=== PATIENT | male | born 1955 | race Caucasian/White ===

== ENCOUNTER → 2017-12-10 | Outpatient (CLI) | payer OTHER ==
[~2017-12-10] MED LIST: OPTIRAY 320 IV PRN
--- NOTE | 2017-12-10 20:15 | DIAGNOSTIC IMAGING REPORT ---
ADDENDUM No evidence for acute diverticulitis. Electronically signed by: Uriel Calle M.D. 12/11/2017 6:07 PM Dictated Date/Time: 12/11/2017 6:07 PM ORIGINAL REPORT ABDOMEN AND PELVIS CT WITH IV AND ORAL CONTRAST CT DOSE: 593.68 mGy.cm HISTORY: Generalized abdominal pain. Assess for diverticulitis. TECHNIQUE: Multiaxial CT images of the abdomen and pelvis were performed following the use of intravenous and oral contrast. A dose lowering technique was utilized adhering to the principles of ALARA. COMPARISON STUDY: None. FINDINGS: The lung bases are clear. No pneumoperitoneum. No pneumatosis. No fractures within the visualized osseous structures. There are poststernotomy changes. 2 cm diverticulum at the second portion of the duodenum. The liver, gallbladder, spleen, adrenal glands, pancreas, and kidneys are unremarkable. Normal bladder. No pelvic free fluid. No bowel wall thickening or obstruction. Normal appendix. No retroperitoneal lymphadenopathy. IMPRESSION: 1. No bowel wall thickening or obstruction. 2. Normal appendix. Electronically signed by: Uriel Calle M.D. 12/10/2017 8:14 PM Dictated Date/Time: 12/10/2017 8:06 PM
== END | disposition home or self-care (01) ==
LOC: C.CTS 17:27
PROVIDERS: ATTEND Family Medicine
DX: R10.9 Unspecified abdominal pain (principal)

== ENCOUNTER 2022-11-20 14:20 | Inpatient (IN) ==
--- NOTE | 2022-11-20 14:52 | Emergency Department Note ---
Impression & Plan CAP (community acquired pneumonia), Acute dehydration, Anemia, Headache ED Provider Note NAME: CECI MEDINA AGE: 67 SEX: M : 1955 ARRIVES VIA: Ambulance INFORMANT: Patient, ED PROVIDER(S): Manuel Rust MD CHIEF COMPLAINT: MEDICAL DECISION MAKING: Patient presents due to concern for shaking-like episode. Next IV was established blood work was obtained along with CT head chest x-ray and CT abdomen pelvis. Patient was ordered IV fluids as well as medications for headache. The patient's blood work did show leukocytosis with a white count of 16. The patient's hemoglobin slightly low at 13.8 with a normal platelet count. Kidney function is grossly unremarkable. TSH normal. Patient did have urinalysis com pleted which was negative. BioFire negative nasal MRSA swab negative and the patient did receive antibiotics as the patient's chest x-ray did show concern for pneumonia. 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 Believe that this is an incidental finding. CT of the head and is negative I did convey the findings to the patient given the patient's shaking episodes believe that this was rigors and less likely to be seizure as the patient had no past postictal period. The patient was admitted to medicine service by Dr. Gonzalez. Prior /Outside records reviewed: None Differential diagnosis: Infection, dehydration, metabolic abnormality, hypo/hyperglycemia, electrolyte disturbance, anemia, hypoxia, arrhythmia, ICH, seizure among others were considered Diagnostics, as interpreted by me: ECG: Normal sinus rhythm, rate of 94, normal intervals normal axis no ST elevations or T WI. Cardiac monitoring: An order was placed for continuous cardiac monitoring. The monitor shows a rate of 88 with sinus rhythm. Patient was placed on pulse oximetry Medical decision rules: Curb 65 Imaging studies: See below Chest x-ray noted for possible pneumonia HPI: Patient presents due to concern for shaking-like episode that occurred around 130 today. Lasted approximate 30 minutes in duration. The patient denies any postictal. Tongue biting or incontinence. No prior history of seizure. The patient does admit to have a headache and feeling very fatigued. The patient has had a nonproductive cough. Former smoker last smoking 6 months ago. Patient also complains of some abdominal pain and dysuria. No recent falls or trauma. The patient does not take anything for symptoms today. The patient did admit to feeling rundown prior to this episode today. Patient denies any numbness tingling or focal weakness. No neck pain. The patient's headache is global and nonradiating. Patient does not take any blood thinning medications. PAST MEDICAL HISTORY: See Below PAST SURGICAL HISTORY: See Below SOCIAL HISTORY: See Below HOME MEDICATIONS: See Below ALLERGIES: See Below VITALS: See Below PHYSICAL EXAMINATION: GENERAL: NAD, wearing a mask, non-toxic. Wearing a baseball cap and glasses. EYE EXAM: Normal conjunctiva. PERRL, no anisocoria and EOM's grossly intact w/o pain. NECK: Supple, no nuchal rigidity, no adenopathy, non-tender. No signs of meningismus. FROM of the neck with good chin to chest and neck extension. No stridor. LUNGS: Clear to auscultation. Normal chest wall mechanics. HEART: NSR, no MRG. ABDOMEN: Abdomen soft, non-tender, no masses, no rebound or guarding. BACK: No CVA TTP. SKIN: No rashes and no bruising. UPPER EXTREMITIES: Upper extremities are grossly normal. LOWER EXTREMITIES: Grossly normal, no edema. NEURO EXAM: A&O x3, cranial nerves II-XII grossly intact, normal speech, moves all 4 extremities. Good [id number], no drift and no sensory deficits Past Med/Surg History Medical History NHL (non-Hodgkin's lymphoma) (~1994) surgery + chemotherapy. remission currently Surgical History History of colonoscopy History of esophagogastroduodenoscopy (EGD) Hx of surgical procedure tumor removal from chest "open surgery" Family History Other No pertinent family history Social History Smoking Status: Former smoker Cigarettes Per Day: 12; Second Hand Exposure: No; Do You Dip or Chew Tobacco: No; Tobacco Cessation Education Requested by Patient: No Hx Alcohol Use: Yes Alcohol type: beer Hx Substance Use: No Preferred Language: Divehi Communication Ability: Effective Podiatry Doctor Required: No Beliefs That Will Affect Care: None Current Living Situation: Spouse current occupational status: employed Other Information That Helps Us Care for You: No Feels Safe at Home: Yes Safety Concerns: Feels Safe At This Time Assistive Devices: None Allergies Allergies Allergy/AdvReac Type Severity Reaction Status Date / Time No Known Allergies Allergy Unknown Verified 11/20/22 16:24 Home Meds Home Medications Medication Instructions Recorded Confirmed ascorbic acid (vitamin C) 1,000 mg 1,000 mg PO QAM 10/31/18 11/20/22 tablet (Vitamin C) multivitamin 1 tab PO QAM 10/31/18 11/20/22 pantoprazole 40 mg tablet,delayed 40 mg PO DAILY 08/24/21 11/20/22 release Results & Data (ED) Vital Signs Vital Signs - 24 hr 11/20/22 14:30 11/20/22 15:04 11/20/22 15:12 Temperature 37.1 C Temperature Source Oral Pulse Rate 95 H 93 H Pulse Rate [Apical] Pulse Rate from SpO2 Sensor Respiratory Rate 18 Respiratory Depth Normal Blood Pressure 144/77 H Blood Pressure [Left Arm] Blood Pressure Mean 99 Blood Pressure Mean [Left Arm] Blood Pressure Position Lying Blood Pressure Position [Left Arm] Pulse Oximetry 96 94 Oxygen Delivery Method Room Air Room Air Sepsis Recent Fever Within 48 Hours No Sepsis New/Unexplained Change in Mental Status No Sepsis Action Taken by Nursing No Action Required 11/20/22 16:08 11/20/22 18:39 11/20/22 14:56 Temperature Temperature Source Pulse Rate 75 94 H Pulse Rate [Apical] 79 Pulse Rate from SpO2 Sensor Respiratory Rate 18 12 Respiratory Depth Blood Pressure Blood Pressure [Left Arm] 101/63 Blood Pressure Mean Blood Pressure Mean [Left Arm] 75 Blood Pressure Position Blood Pressure Position [Left Arm] Sitting Pulse Oximetry 93 Oxygen Delivery Method Room Air Sepsis Recent Fever Within 48 Hours Sepsis New/Unexplained Change in Mental Status Sepsis Action Taken by Nursing 11/20/22 15:00 11/20/22 15:00 11/20/22 15:30 Temperature Temperature Source Pulse Rate 92 H Pulse Rate [Apical] Pulse Rate from SpO2 Sensor Respiratory Rate 19 Respiratory Depth Blood Pressure 122/63 145/78 H Blood Pressure [Left Arm] Blood Pressure Mean 82 100 Blood Pressure Mean [Left Arm] Blood Pressure Position Blood Pressure Position [Left Arm] Pulse Oximetry Oxygen Delivery Method Sepsis Recent Fever Within 48 Hours Sepsis New/Unexplained Change in Mental Status Sepsis Action Taken by Nursing 11/20/22 15:30 11/20/22 16:00 11/20/22 16:01 Temperature Temperature Source Pulse Rate 94 H 82 Pulse Rate [Apical] Pulse Rate from SpO2 Sensor 94 H 78 Respiratory Rate 20 19 Respiratory Depth Blood Pressure 101/63 Blood Pressure [Left Arm] Blood Pressure Mean 75 Blood Pressure Mean [Left Arm] Blood Pressure Position Blood Pressure Position [Left Arm] Pulse Oximetry 97 89 L Oxygen Delivery Method Sepsis Recent Fever Within 48 Hours Sepsis New/Unexplained Change in Mental Status Sepsis Action Taken by Nursing 11/20/22 16:01 11/20/22 16:34 11/20/22 16:56 Temperature Temperature Source Pulse Rate 80 77 Pulse Rate [Apical] Pulse Rate from SpO2 Sensor 81 77 Respiratory Rate 17 14 Respiratory Depth Blood Pressure 117/59 L Blood Pressure [Left Arm] Blood Pressure Mean 78 Blood Pressure Mean [Left Arm] Blood Pressure Position Blood Pressure Position [Left Arm] Pulse Oximetry 94 95 Oxygen Delivery Method Sepsis Recent Fever Within 48 Hours Sepsis New/Unexplained Change in Mental Status Sepsis Action Taken by Nursing 11/20/22 16:56 11/20/22 17:00 11/20/22 17:00 Temperature Temperature Source Pulse Rate 77 76 Pulse Rate [Apical] Pulse Rate from SpO2 Sensor 79 77 Respiratory Rate 18 15 Respiratory Depth Blood Pressure 120/65 Blood Pressure [Left Arm] Blood Pressure Mean 83 Blood Pressure Mean [Left Arm] Blood Pressure Position Blood Pressure Position [Left Arm] Pulse Oximetry 94 95 Oxygen Delivery Method Sepsis Recent Fever Within 48 Hours Sepsis New/Unexplained Change in Mental Status Sepsis Action Taken by Nursing 11/20/22 17:30 11/20/22 17:30 11/20/22 18:00 Temperature Temperature Source Pulse Rate 72 76 Pulse Rate [Apical] Pulse Rate from SpO2 Sensor 72 77 Respiratory Rate 14 18 Respiratory Depth Blood Pressure 128/71 Blood Pressure [Left Arm] Blood Pressure Mean 90 Blood Pressure Mean [Left Arm] Blood Pressure Position Blood Pressure Position [Left Arm] Pulse Oximetry 97 96 Oxygen Delivery Method Room Air Room Air Sepsis Recent Fever Within 48 Hours Sepsis New/Unexplained Change in Mental Status Sepsis Action Taken by Nursing 11/20/22 18:30 Temperature Temperature Source Pulse Rate 72 Pulse Rate [Apical] Pulse Rate from SpO2 Sensor 71 Respiratory Rate 18 Respiratory Depth Blood Pressure Blood Pressure [Left Arm] Blood Pressure Mean Blood Pressure Mean [Left Arm] Blood Pressure Position Blood Pressure Position [Left Arm] Pulse Oximetry 97 Oxygen Delivery Method Room Air Sepsis Recent Fever Within 48 Hours Sepsis New/Unexplained Change in Mental Status Sepsis Action Taken by Assisted Medications Current Medication List: was personally reviewed by me Laboratory Data Attestation: I reviewed the patient's lab results. 11/20/22 15:19 11/20/22 15:19 Lab Results 11/20/22 11/20/22 11/20/22 Range/Units 15:19 15:19 15:19 WBC 16.88 H (4.8-10.8) K/ul RBC 4.46 L (4.70-6.10) M/uL Hgb 13.8 L (14.0-18.0) g/dl Hct 40.2 L (42.0-52.0) % MCV 90.1 (80.0-100.0) fL MCH 30.9 (25.0-34.0) pg MCHC 34.3 (32.0-36.0) g/dL RDW Std Deviation 41.3 (36.4-46.3) fL RDW Coeff of Osiel 12.5 (11.5-14.5) % Plt Count 256 (130-400) K/uL MPV 11.0 (9.4-12.4) fL Immature Gran % (Auto) 0.7 % Neut % (Auto) 74.3 % Lymph % (Auto) 13.7 % Ogle % (Auto) 10.1 % Eos % (Auto) 0.8 % Baso % (Auto) 0.4 % Neut # (Auto) 12.57 H (1.40-6.50) K/uL Lymph # (Auto) 2.31 (1.2-3.4) K/uL Ogle # (Auto) 1.70 H (0.11-0.59) K/uL Eos # (Auto) 0.13 (0-0.50) K/uL Baso # (Auto) 0.06 (0-0.2) K/uL Immature Gran # (Auto) 0.11 (0.01-0.20) K/uL Sodium 137 (136-145) mmol/L Potassium 4.2 (3.5-5.1) mmol/L Chloride 103 (98-107) mmol/L Carbon Dioxide 29 (21-32) mmol/L Anion Gap 5 (3-11) BUN 15 (6-23) mg/dl Creatinine 1.02 (0.6-1.4) mg/dl Est Cr Clr Drug Dosing Not Reportable Est GFR ( Amer) 88.4 ml/min Est GFR (Non-Af Amer) 76.2 ml/min BUN/Creatinine Ratio 14.7 (10-20) Glucose 107 H (70-99(Fasting)) mg/dl Calcium 8.5 L (8.6-10.3) mg/dl Magnesium 1.7 (1.7-2.4) mg/dl Total Bilirubin 0.6 (0.2-1.0) mg/dl AST 21 (13-39) U/L ALT 47 (7-52) U/L Alkaline Phosphatase 63 (34-104) U/L Total Protein 6.5 (6.0-8.3) gm/dl Albumin 3.5 (3.4-5.0) gm/dl Globulin 3.0 (2.5-4.0) gm/dl Albumin/Globulin Ratio 1.2 (0.9-2) TSH 2.243 (0.300-4.500) uIu/ml Urine Color Urine Appearance (Clear) Urine pH (4.5-7.5) Ur Specific Brent (1.000-1.030) Urine Protein (Negative) Urine Glucose (UA) (Negative) Urine Ketones (Negative) Urine Blood (Negative) Urine Nitrite (Negative) Urine Bilirubin (Negative) Urine Urobilinogen (Negative) Ur Leukocyte Esterase (Negative) Nasal Screen MRSA (PCR) (Negative) Adenovirus (PCR) (NotDetected) B. pertussis DNA (PCR) (NotDetected) B.parapertussis DNA PCR (NotDetected) C. pneumoniae DNA (PCR) (NotDetected) Coronavirus OC43 (PCR) (NotDetected) Coronavirus HKU1 (PCR) (NotDetected) Coronavirus 229E (PCR) (NotDetected) SARS-CoV-2 (PCR) (NotDetected) Coronavirus NL63 (PCR) (NotDetected) Human Metapneumovir PCR (NotDetected) Influenza Type A (PCR) (NotDetected) Influenza Type B (PCR) (NotDetected) M. pneumoniae (PCR) (NotDetected) Parainfluenza 1 (PCR) (NotDetected) Parainfluenza 2 (PCR) (NotDetected) Parainfluenza 3 (PCR) (NotDetected) Parainfluenza 4 (PCR) (NotDetected) RSV (PCR) (NotDetected) Entero/Rhino (PCR) (NotDetected) 11/20/22 11/20/22 11/20/22 Range/Units 15:34 18:02 18:02 WBC (4.8-10.8) K/ul RBC (4.70-6.10) M/uL Hgb (14.0-18.0) g/dl Hct (42.0-52.0) % MCV (80.0-100.0) fL MCH (25.0-34.0) pg MCHC (32.0-36.0) g/dL RDW Std Deviation (36.4-46.3) fL RDW Coeff of Osiel (11.5-14.5) % Plt Count (130-400) K/uL MPV (9.4-12.4) fL Immature Gran % (Auto) % Neut % (Auto) % Lymph % (Auto) % Ogle % (Auto) % Eos % (Auto) % Baso % (Auto) % Neut # (Auto) (1.40-6.50) K/uL Lymph # (Auto) (1.2-3.4) K/uL Ogle # (Auto) (0.11-0.59) K/uL Eos # (Auto) (0-0.50) K/uL Baso # (Auto) (0-0.2) K/uL Immature Gran # (Auto) (0.01-0.20) K/uL Sodium (136-145) mmol/L Potassium (3.5-5.1) mmol/L Chloride (98-107) mmol/L Carbon Dioxide (21-32) mmol/L Anion Gap (3-11) BUN (6-23) mg/dl Creatinine (0.6-1.4) mg/dl Est Cr Clr Drug Dosing Est GFR ( Amer) ml/min Est GFR (Non-Af Amer) ml/min BUN/Creatinine Ratio (10-20) Glucose (70-99(Fasting)) mg/dl Calcium (8.6-10.3) mg/dl Magnesium (1.7-2.4) mg/dl Total Bilirubin (0.2-1.0) mg/dl AST (13-39) U/L ALT (7-52) U/L Alkaline Phosphatase (34-104) U/L Total Protein (6.0-8.3) gm/dl Albumin (3.4-5.0) gm/dl Globulin (2.5-4.0) gm/dl Albumin/Globulin Ratio (0.9-2) TSH (0.300-4.500) uIu/ml Urine Color Yellow Urine Appearance Clear (Clear) Urine pH 6.5 (4.5-7.5) Ur Specific Brent 1.011 (1.000-1.030) Urine Protein Negative (Negative) Urine Glucose (UA) Negative (Negative) Urine Ketones Negative (Negative) Urine Blood Negative (Negative) Urine Nitrite Negative (Negative) Urine Bilirubin Negative (Negative) Urine Urobilinogen Negative (Negative) Ur Leukocyte Esterase Negative (Negative) Nasal Screen MRSA (PCR) Negative (Negative) Adenovirus (PCR) Not Detected (NotDetected) B. pertussis DNA (PCR) Not Detected (NotDetected) B.parapertussis DNA PCR Not Detected (NotDetected) C. pneumoniae DNA (PCR) Not Detected (NotDetected) Coronavirus OC43 (PCR) Not Detected (NotDetected) Coronavirus HKU1 (PCR) Not Detected (NotDetected) Coronavirus 229E (PCR) Not Detected (NotDetected) SARS-CoV-2 (PCR) Not Detected (NotDetected) Coronavirus NL63 (PCR) Not Detected (NotDetected) Human Metapneumovir PCR Not Detected (NotDetected) Influenza Type A (PCR) Not Detected (NotDetected) Influenza Type B (PCR) Not Detected (NotDetected) M. pneumoniae (PCR) Not Detected (NotDetected) Parainfluenza 1 (PCR) Not Detected (NotDetected) Parainfluenza 2 (PCR) Not Detected (NotDetected) Parainfluenza 3 (PCR) Not Detected (NotDetected) Parainfluenza 4 (PCR) Not Detected (NotDetected) RSV (PCR) Not Detected (NotDetected) Entero/Rhino (PCR) Not Detected (NotDetected) Administered Medications Acetaminophen (Acetaminophen 500 Mg Tab) 1,000 mg PO Q8H KIERRA Stop: 12/21/22 08:14 Last Admin: 11/21/22 08:49 Dose: 1,000 mg Documented By: TAWANA Azithromycin 250 mg/ Dextrose 252.5 mls @ 125 mls/hr IV DAILY KIERRA Stop: 11/28/22 08:59 Last Infusion: 11/21/22 10:12 Dose: 0 mls/hr Documented By: Admin: 11/21/22 07:53 Dose: 125 mls/hr Documented By: TAWANA Pantoprazole Sodium (Pantoprazole 40 Mg Tab) 40 mg PO DAILY KIERRA Stop: 12/21/22 08:59 Last Admin: 11/21/22 07:53 Dose: 40 mg Documented By: TAWANA Discontinued Medications Acetaminophen (Acetaminophen 500 Mg Tab) 1,000 mg PO NOW STA Stop: 11/20/22 15:01 Last Admin: 11/20/22 15:28 Dose: 1,000 mg Documented By: JOI Acetaminophen (Acetaminophen 325 Mg Tab) 650 mg PO Q4H PRN PRN Reason: Pain or Fever Stop: 12/20/22 20:44 Last Admin: 11/20/22 23:19 Dose: 650 mg Documented By: ELIAS Azithromycin (Azithromycin 250 Mg Tab) 500 mg PO NOW ONE Stop: 11/20/22 17:40 Last Admin: 11/20/22 17:56 Dose: 500 mg Documented By: JOI Sodium Chloride (Nss 1000ml) 1,000 mls @ 999 mls/hr IV .Q1H1M KIERRA Stop: 11/20/22 16:00 Last Infusion: 11/20/22 16:52 Dose: 0 mls/hr Documented By: Admin: 11/20/22 15:27 Dose: 999 mls/hr Documented By: JOI Magnesium Sulfate/Dextrose (Magnesium Sulfate / D5w) 1 gm in 100 mls @ 100 mls/hr IV NOW ONE Stop: 11/20/22 15:59 Last Infusion: 11/20/22 16:52 Dose: 0 mls/hr Documented By: Admin: 11/20/22 15:27 Dose: 100 mls/hr Documented By: JOI Ceftriaxone Sodium (Rocephin) 2,000 mg in 70 mls @ 140 mls/hr IV NOW STA Stop: 11/20/22 18:08 Last Infusion: 11/20/22 18:41 Dose: 0 mls/hr Documented By: Admin: 11/20/22 17:56 Dose: 140 mls/hr Documented By: JOI Sodium Chloride (Nss 1000ml) 500 mls @ 999 mls/hr IV .Q31M ONE Stop: 11/20/22 18:09 Last Infusion: 11/20/22 18:43 Dose: 0 mls/hr Documented By: Admin: 11/20/22 17:57 Dose: 999 mls/hr Documented By: JOI Ioversol (Optiray 350 100ml) 87 ml IV ONCE ONE Stop: 11/20/22 16:24 Last Admin: 11/20/22 16:24 Dose: 87 ml Documented By: JO Miscellaneous (Patient's Height &/Or Weight Needed) 1 each N/A Q30M KIERRA Stop: 12/20/22 20:59 Last Admin: 11/20/22 23:06 Dose: Not Given Documented By: Admin: 11/20/22 20:45 Dose: 1 each Documented By: ELIAS Ondansetron HCl (Ondansetron Inj 2 Mg/Ml 2 Ml Vial) 4 mg IV NOW STA Stop: 11/20/22 15:01 Last Admin: 11/20/22 15:28 Dose: 4 mg Documented By: JOI Imaging Data Radiologist's Impression: Chest X-Ray 11/20/22 15:00 SINGLE VIEW CHEST CLINICAL HISTORY: Generalized weakness. FINDINGS: An AP, portable, upright chest radiograph is compared to study dated 11/02/2018. Correlation is made with chest CT dated 05/08/2022. The examination is degraded by portable technique and apical lordotic positioning. The patient is status post midline sternotomy. The heart is top normal for projection. Emphysema and chronic interstitial thickening is similar to previous. There is bibasilar scarring/atelectasis. Right paramediastinal fibrosis similar to previous. Patchy airspace opacities in the right upper lobe are new from previous. No large pleural effusion or pneumothorax is identified. The skeletal structures are osteopenic. The bony thorax is grossly intact. IMPRESSION: 1. There are mild patchy airspace opacities in the right upper lobe which are new from previous. Correlate clinically for evidence of pneumonia/aspiration pneumonitis. Radiographic follow-up to resolution is recommended. 2. Emphysema and chronic parenchymal changes as above. ACT 112: Negative or not required by law. Electronically signed by: Ck Maurice M.D. 11/20/2022 3:11 PM Abdomen/Pelvis CT 11/20/22 15:[address] WITH IV CONTRAST CT DOSE: 995.34 mGy.cm HISTORY: Acute generalized abdominal pain ab pain TECHNIQUE: Multiaxial CT images of the abdomen and pelvis were performed following the IV administration of 87 cc of Optiray, A dose lowering technique was utilized adhering to the principles of ALARA. COMPARISON STUDY: 10/31/2018 FINDINGS: Mild patchy left basilar consolidation. No pneumatosis or pneumoperitoneum. The spleen, pancreas, gallbladder and adrenal glands are unremarkable. Hepatic steatosis. Patency of the hepatic and portal veins. A nonspecific bilateral perinephric stranding. No urolith or hany hydronephrosis. The prostate is mildly enlarged. Mildly distended urinary bladder. Atherosclerosis of the aorta. Fusiform dilation of the infra renal abdominal aorta, 3.0 x 2.5 cm, previously 2.5 x 2.2 cm. No lymphadenopathy. There is no bowel obstruction or bowel wall thickening. Normal appendix. No asci willa or mesenteric inflammation. Unremarkable soft tissues. No acute fracture. IMPRESSION: 1. Mild left lower lobe pneumonia. 2. No acute intra-abdominal or intrapelvic abnormality. 3. Hepatic steatosis. 4. Mild fusiform aneurysmal dilation of the infra infrarenal segment of the abdominal aorta, 3 cm. 5. Additional findings as above. ACT 112: Negative or not required by law. The above report was generated using voice recognition software. It may contain grammatical, syntax or spelling errors. Electronically signed by: Rene Woods M.D. 11/20/2022 4:[address] 11/20/22 15:01 CT head/brain wo con CLINICAL HISTORY: 67 years-old Male with Headache. Acute headache TECHNIQUE: Multiple axial CT images of the head were obtained without contrast. A dose lowering technique was utilized adhering to the principles of ALARA. CT DOSE: 537.48 mGy.cm COMPARISON: None. FINDINGS: No acute intracranial hemorrhage, midline shift, intracranial mass, hydrocephalus, territorial ischemia or abnormal extra-axial collection. Mild involutional changes. The calvarium is intact. The paranasal sinuses, mastoid air cells, and middle ear cavities are clear. IMPRESSION: No acute intracranial abnormality. ACT 112: Negative or not required by law. The above report was generated using voice recognition software. It may contain grammatical, syntax or spelling errors. Electronically signed by: Rene Woods M.D. 11/20/2022 4:26 PM Discharge Plan Visit Data Chief Complaint: Seizure ED Provider: Manuel Rust Discharge Problem: CAP (community acquired pneumonia), Acute dehydration, Anemia, Headache Patient Disposition: Admitted As Inpatient Discharge Instructions Interventions: ED Discharge Assessment Last Done: 11/20/22 20:35
[2022-11-20] MEDS ORDERED: SODIUM CHLORIDE 0.9% 1000ML 1,000 ML IV SCH (15:00)
[2022-11-20] MEDS ORDERED: ONDANSETRON INJ 2 MG/ML 2 ML VIAL IV STA (15:00)
[2022-11-20] MEDS ORDERED: ACETAMINOPHEN 500 MG TAB PO STA (15:00)
[2022-11-20] MEDS ORDERED: MAGNESIUM SULFATE / D5W 1 GM/100 ML BAG IV ONE (15:00)
--- NOTE | 2022-11-20 15:12 | XRay Report ---
SINGLE VIEW CHEST CLINICAL HISTORY: Generalized weakness. FINDINGS: An AP, portable, upright chest radiograph is compared to study dated 11/02/2018. Correlation is made with chest CT dated 05/08/2022. The examination is degraded by portable technique and apical lordotic positioning. The patient is status post midline sternotomy. The heart is top normal for proj ection. Emphysema and chronic interstitial thickening is similar to previous. There is bibasilar scar ring/atelectasis. Right paramediastinal fibrosis similar to previous. Patchy airspace opacities in th e right upper lobe are new from previous. No large pleural effusion or pneumothorax is identified. Th e skeletal structures are osteopenic. The bony thorax is grossly intact. IMPRESSION: 1. There are mild patchy airspace opacities in the right upper lobe which are new from previous. Alexis elate clinically for evidence of pneumonia/aspiration pneumonitis. Radiographic follow-up to resoluti on is recommended. 2. Emphysema and chronic parenchymal changes as above. ACT 112: Negative or not required by law. Electronically signed by: Ck Maurice M.D. 11/20/2022 3:11 PM
[2022-11-20 15:32] LABS: Basophils # (auto) 0.06 K/uL (0-0.2); Basophils % (auto) 0.4 %; Eosinophils # (auto) 0.13 K/uL (0-0.50); Eosinophils % (auto) 0.8 %; Hematocrit (blood only) 40.2 % (42.0-52.0); Hemoglobin 13.8 g/dl (14.0-18.0); Immature Granulocytes # (auto) 0.11 K/uL (0.01-0.20); Immature Granulocytes % (auto) 0.7 %; Lymphocytes # (auto) 2.31 K/uL (1.2-3.4); Lymphocytes % (auto) 13.7 %; Mean Corpuscular Hemoglobin 30.9 pg (25.0-34.0); Mean Corpuscular Hgb Conc 34.3 g/dL (32.0-36.0); Mean Corpuscular Volume 90.1 fL (80.0-100.0); Monocytes % (auto) 10.1 %; Neutrophils # (auto) 12.57 K/uL (1.40-6.50); Neutrophils % (auto) 74.3 %; Platelet Count 256 K/uL (130-400); RDW Coefficient of Variation 12.5 % (11.5-14.5); RDW Standard Deviation 41.3 fL (36.4-46.3); Red Blood Count 4.46 M/uL (4.70-6.10); White Blood Count 16.88 K/ul (4.8-10.8)
[2022-11-20 15:47] LABS: Albumin Level 3.5 gm/dl (3.4-5.0); Anion Gap 5 (3-11); Bilirubin,Total 0.6 mg/dl (0.2-1.0); Calcium 8.5 mg/dl (8.6-10.3); Carbon Dioxide 29 mmol/L (21-32); Chloride 103 mmol/L (98-107); Magnesium 1.7 mg/dl (1.7-2.4); Potassium 4.2 mmol/L (3.5-5.1); Sodium 137 mmol/L (136-145)
[2022-11-20 15:52] LABS: Alanine Aminotransferase 47 U/L (7-52); Albumin Globulin Ratio 1.2 (0.9-2); Alkaline Phosphatase 63 U/L (34-104); Aspartate Aminotransferase 21 U/L (13-39); BUN Creatinine Ratio 14.7 (10-20); Blood Urea Nitrogen 15 mg/dl (6-23); Est GFR (African American) 88.4 ml/min; Est GFR (Non-African American) 76.2 ml/min; Glucose 107 mg/dl (70-99(Fasting)); Total Protein 6.5 gm/dl (6.0-8.3)
[2022-11-20 16:06] LABS: Appearance Urine Clear (Clear); Bilirubin Urine Negative (Negative); Blood Urine Negative (Negative); Color Urine Yellow; Glucose Urine UA Negative (Negative); Ketones Urine Negative (Negative); Leukocyte Esterase Urine Negative (Negative); Nitrite Urine Negative (Negative); Protein Urine Negative (Negative); Specific Gravity Urine 1.011 (1.000-1.030); Urobilinogen Urine Negative (Negative); pH Urine 6.5 (4.5-7.5)
--- NOTE | 2022-11-20 16:09 | Electrocardiogram Report ---
Test Reason : Blood Pressure : / mmHG Vent. Rate : 094 BPM Atrial Rate : 094 BPM P-R Int : 128 ms QRS Dur : 096 ms QT Int : 358 ms P-R-T Axes : 014 -07 037 degrees QTc Int : 447 ms Normal sinus rhythm Normal ECG When compared with ECG of 29-AUG-2021 07:50, QRS axis Shifted left Otherwise no significant change Confirmed by Janak Liu ([id number]) on 11/20/2022 4:08:28 PM Referred By: Confirmed By:Janak Liu
[2022-11-20] MEDS ORDERED: OPTIRAY 350 100ml IV ONE (16:23)
--- NOTE | 2022-11-20 16:28 | CT Scan Report ---
CT head/brain wo con CLINICAL HISTORY: 67 years-old Male with Headache. Acute headache TECHNIQUE: Multiple axial CT images of the head were obtained without contrast. A dose lowering tech nique was utilized adhering to the principles of ALARA. CT DOSE: 537.48 mGy.cm COMPARISON: None. FINDINGS: No acute intracranial hemorrhage, midline shift, intracranial mass, hydrocephalus, territorial ischem ia or abnormal extra-axial collection. Mild involutional changes. The calvarium is intact. The paranasal sinuses, mastoid air cells, and middle ear cavities are clear . IMPRESSION: No acute intracranial abnormality. ACT 112: Negative or not required by law. The above report was generated using voice recognition software. It may contain grammatical, syntax o r spelling errors. Electronically signed by: Rene Woods M.D. 11/20/2022 4:26 PM
--- NOTE | 2022-11-20 16:39 | CT Scan Report ---
ABDOMEN AND PELVIS CT WITH IV CONTRAST CT DOSE: 995.34 mGy.cm HISTORY: Acute generalized abdominal pain ab pain TECHNIQUE: Multiaxial CT images of the abdomen and pelvis were performed following the IV administrat ion of 87 cc of Optiray, A dose lowering technique was utilized adhering to the principles of ALARA. COMPARISON STUDY: 10/31/2018 FINDINGS: Mild patchy left basilar consolidation. No pneumatosis or pneumoperitoneum. The spleen, robles creas, gallbladder and adrenal glands are unremarkable. Hepatic steatosis. Patency of the hepatic and portal veins. A nonspecific bilateral perinephric stranding. No urolith or hany hydronephrosis. The prostate is mildly enlarged. Mildly distended urinary bladder. Atherosclerosis of the aorta. Fusifor m dilation of the infra renal abdominal aorta, 3.0 x 2.5 cm, previously 2.5 x 2.2 cm. No lymphadenopa thy. There is no bowel obstruction or bowel wall thickening. Normal appendix. No ascites or mesenteric inf lammation. Unremarkable soft tissues. No acute fracture. IMPRESSION: 1. Mild left lower lobe pneumonia. 2. No acute intra-abdominal or intrapelvic abnormality. 3. Hepatic steatosis. 4. Mild fusiform aneurysmal dilation of the infra infrarenal segment of the abdominal aorta, 3 cm. 5. Additional findings as above. ACT 112: Negative or not required by law. The above report was generated using voice recognition software. It may contain grammatical, syntax o r spelling errors. Electronically signed by: Rene Woods M.D. 11/20/2022 4:37 PM
[2022-11-20] MEDS ORDERED: SODIUM CHLORIDE 0.9% 1000ML 500 ML IV ONE (17:39)
[2022-11-20] MEDS ORDERED: AZITHROMYCIN 250 MG TAB PO ONE (17:39)
[2022-11-20] MEDS ORDERED: cefTRIAXone SODIUM 2,000 MG/70 ML BAG IV STA (17:39)
--- NOTE | 2022-11-20 18:07 | History & Physical Report ---
Date of Service November 20, 2022 Assessment & Plan (1) CAP (community acquired pneumonia): Plan: Community-acquired pneumonia - CTA/P: Mild left lower lobe pneumonia, no acute intra-abdominal or intrapelvic abnormality. Mild fusiform aneurysmal dilation of infrarenal segment of a abdominal aorta 3 cm CXR: Emphysema, mild patchy airspace opacities in right upper lobe new from prior Leukocytosis 16.88 with left shift Hemoglobin 13.8, MCV 90 Sodium, potassium normal Renal function with creatinine less than 1.2 at baseline, admitting creatinine 1.02 Magnesium 1.7, oral x1 given TSH is normal Continue Rocephin/azithromycin Patient has an episode prior to admission of what sounds like rigors where he had shaking chills with hot and cold sweats which lasted for around half an hour. Blood cultures pending. Patient was second episode of a unresponsive staring spell while standing, although this was not associated with tonic-clonic jerks. Suspect patient may have had a vasovagal episode after using the bathroom in the setting of volume depletion with a community-acquired pneumonia. No confusion at bedside assessment, no focal weakness. CThead is normal We will follow on seizure precautions but defer CT seizure protocol/EEG on admission for suspected vasovagal event. Ativan on-call in case he experiences recurrent seizure, if when the seizure does occur then will load Keppra 2g at that time, follow with 500mg BID after and order MRI seizure protocol and obtain a follow-up EEG. Infrarenal aortic aneurysm 3 cm, recommend continued serial imaging as outpatient Patient is a former smoker, no active tobacco use Fluoroquinolone use not recommended, Lumbar radiculopathy, right lower extremity weakness No bowel or bladder incontinence Does have radiating pain from his back down his leg and into his foot and some sensory numbness and tingling. Does have a history of sciatica and SI dysfunction which did not improve following joint injection Was pending a lumbar MRI as outpatient next week, patient endorses that he has had right leg weakness and strength loss in addition to pain limitation 5/5 strength to hip flexion and ankle dorsiflexion/plantarflexion in bed, qualitatively fatigues more easily than on the left No signs requiring emergent MRI. Can obtain routine MRI while inpatient to facilitate, if patient develops weakness on exam, abnormal reflexes, or bowel/bladder retention or incontinence would obtain stat at that time DVT prophylaxis: Lovenox Diet: Heart healthy Disposition: Medical telemetry CODE STATUS: Full code (2) Lumbar back pain with radiculopathy affecting right lower extremity: (3) NHL (non-Hodgkin's lymphoma): History of Present Illness Primary Care Provider: Maggie Tipton DO Prashanth is a 67-year-old male with a past medical history of lumbar radiculopathy with right lower extremity radiculopathy who presents with Prashanth is seen at the bedside with his . Had been very fatigued for 3-4 days. Had a bad cough while at work. 3:30 today started shaking so violently he almost passed out and had freezing chills. Walked up to his wifes work and then like he was burning up with a fever. Went to go to the bathroom today and passed out. Cough is productive for yelloish sputum Not sure if he had a temperature Has felt more shrot of breath x3-4 days No nausea, vomiting, or diarrhea. no constipation Former 30 pack her history. Early COPD on low dose CT screening. No inhaler use. Has had intermittent wheezing which has not occured since he quit smoking Hx of Si joint dysfunction on Right side, s/p injection which did not help and with intermittent sciatia. No bowel/bladder x. Pending outpatient lumbar MRI. +dysuria, no retention. R hip flexion. Qualitative different feel in R foot to soft touch Episode of unresponsiveness, staring, did no respond. Did nto fall or shake but was not responsive and does not remember the episode. Sternal wires s/p nonhodgkins lymphoma remova. Was performed at [facility] November 1995, no recurrent cancer after chemo and radiation. Medical History: Reviewed Medications: Reviewed Surgical History: Reviewed Family history: Reviewed Allergies: Reviewed Social History: Former smoker, quit smoking 6-8 months ago. Former 1ppd use x30 year use. Rare social etoh. No rec drug use Code Status: Full Code Allergies Allergy/AdvReac Type Severity Reaction Status Date / Time No Known Allergies Allergy Unknown Verified 11/20/22 16:24 Home Medications Medication Instructions Recorded Confirmed Type ascorbic acid (vitamin C) 1,000 mg 1,000 mg PO QAM 10/31/18 11/20/22 History tablet (Vitamin C) multivitamin 1 tab PO QAM 10/31/18 11/20/22 History pantoprazole 40 mg tablet,delayed 40 mg PO DAILY 08/24/21 11/20/22 History release Past Med/Surg History Medical History (Updated 11/20/22 @ 18:26 by Jim Gonzalez MD) NHL (non-Hodgkin's lymphoma) (~1994) surgery + chemotherapy. remission currently Surgical History History of colonoscopy History of esophagogastroduodenoscopy (EGD) Hx of surgical procedure tumor removal from chest "open surgery" Family History Other No pertinent family history Social History Smoking Status: Former smoker Cigarettes Per Day: 12; Second Hand Exposure: Yes; Hx Alcohol Use: No Hx Substance Use: No Preferred Language: Bhutanese Communication Ability: Effective Cue Selector Required: No Beliefs That Will Affect Care: None Current Living Situation: Spouse current occupational status: employed Feels Safe at Home: Yes Assistive Devices: Brace/Splint/Immobilizer Review of Systems Review of Systems: All systems reviewed & are unremarkable except as noted in HPI & below Physical Exam Physical Exam: General: A&Ox3. NAD. Cooperative. HEENT: Atraumatic, normocephalic. PERLAA. EOM/Vision intact Pulm: Diminished, crackles in the bases. -wheezes, -rales, -rhonchi. Symmetrical chest rise. No increased work of breathing. No respiratory distress. Cardiac: RRR, -mrg. Radial pulses intact and symmetrical. Abdominal: Nontender, nondistended, soft. BS present. CRANIAL NERVES: II: Pupils equal and reactive, no relative afferent pupillary defect, no VF cuts III, IV, : EOM intact, no gaze preference or deviation, no nystagmus. V: normal sensation in V1, V2, and V3 segments bilaterally VII: no asymmetry, no nasolabial fold flattening VIII: normal hearing to speech IX, X: normal palatal elevation, no uvular deviation XI: 5/5 head turn and 5/5 shoulder shrug bilaterally XII: midline tongue protrusion MOTOR: RUE: 5/5 animal care technician strength, finger flexion/extension, interosseus LUE: 5/5 animal care technician strength, finger flexion/extension, interosseus RLE: 5/5 to hip flexion, knee flexion/extension, ankle dorsiflexion/plantarflexion. Fatigues easily. LLE: 5/5 to hip flexion, knee flexion/extension, ankle dorsiflexion/plantarflexion SENSORY: Normal to touch, in upper and lower extremities without deficit or asymmetry Results & Data Results & Data Vital Signs (Past 12 Hours) Vital Signs Temp Pulse Pulse Resp BP BP Pulse Ox 11/20/22 16:08 79 18 101/63 93 11/20/22 15:12 93 H 11/20/22 15:04 94 11/20/22 14:30 37.1 C 95 H 18 144/77 H 96 O2 Del Method 11/20/22 16:08 Room Air 11/20/22 15:12 11/20/22 15:04 Room Air 11/20/22 14:30 Room Air PG Care Time/CCT Total # of Minutes Spent Total Time Spent with Patient: Total time spent is greater than 50% in coordination of care (as documented) at patient's floor/unit and/or counseling patient: Coding Level of Care Code 24711 INT INP/OBS CARE 75MIN Diagnoses CAP (community acquired pneumonia) J18.9 Lumbar back pain with radiculopathy affecting right lower extremity M54.16 NHL (non-Hodgkin's lymphoma) C85.90
[2022-11-20 19:42] LABS: Adenovirus PCR Not Detected (NotDetected); Bordetella parapertussis PCR Not Detected (NotDetected); Bordetella pertussis PCR Not Detected (NotDetected); Chlamydia pneumoniae PCR Not Detected (NotDetected); Coronavirus 229E PCR Not Detected (NotDetected); Coronavirus CoV-2 (COVID19)PCR Not Detected (NotDetected); Coronavirus HKU1 PCR Not Detected (NotDetected); Coronavirus NL63 PCR Not Detected (NotDetected); Coronavirus OC43PCR Not Detected (NotDetected); Human Metapneumovirus PCR Not Detected (NotDetected); Influenza A PCR Not Detected (NotDetected); Influenza B PCR Not Detected (NotDetected); Mycoplasma pneumoniae PCR Not Detected (NotDetected); Parainfluenza Virus 1 PCR Not Detected (NotDetected); Parainfluenza Virus 2 PCR Not Detected (NotDetected); Parainfluenza Virus 3 PCR Not Detected (NotDetected); Parainfluenza Virus 4 PCR Not Detected (NotDetected); Respiratory Syncytial VirusPCR Not Detected (NotDetected); Rhinovirus/Enterovirus PCR Not Detected (NotDetected)
[2022-11-20] MEDS ORDERED: LORazepam 2 MG/1 ML VIAL IV PRN (20:45)
[2022-11-20] MEDS: Patient's HEIGHT &/or WEIGHT Needed SCH ×2 (20:45→23:06)
[2022-11-20] MEDS ORDERED: ACETAMINOPHEN 325 MG TAB PO PRN (20:45)
[2022-11-20] MEDS ORDERED: BENZONATATE 100 MG CAPSULE PO PRN (23:23)
[2022-11-21 07:24] LABS: Basophils # (auto) 0.05 K/uL (0-0.2); Basophils % (auto) 0.4 %; Eosinophils # (auto) 0.19 K/uL (0-0.50); Eosinophils % (auto) 1.5 %; Hematocrit (blood only) 38.9 % (42.0-52.0); Hemoglobin 13.7 g/dl (14.0-18.0); Immature Granulocytes # (auto) 0.08 K/uL (0.01-0.20); Immature Granulocytes % (auto) 0.6 %; Lymphocytes # (auto) 2.47 K/uL (1.2-3.4); Lymphocytes % (auto) 19.7 %; Mean Corpuscular Hemoglobin 31.6 pg (25.0-34.0); Mean Corpuscular Hgb Conc 35.2 g/dL (32.0-36.0); Mean Corpuscular Volume 89.6 fL (80.0-100.0); Mean Platelet Volume 11.2 fL (9.4-12.4); Monocytes # (auto) 1.26 K/uL (0.11-0.59); Neutrophils # (auto) 8.49 K/uL (1.40-6.50); Neutrophils % (auto) 67.8 %; Platelet Count 254 K/uL (130-400); RDW Coefficient of Variation 12.9 % (11.5-14.5); RDW Standard Deviation 42.2 fL (36.4-46.3); Red Blood Count 4.34 M/uL (4.70-6.10); White Blood Count 12.54 K/ul (4.8-10.8)
--- NOTE | 2022-11-21 07:32 | Hospitalist Progress Note ---
Date of Service November 21, 2022 Assessment & Plan (1) CAP (community acquired pneumonia): Plan: Community-acquired pneumonia - CTA/P: Mild left lower lobe pneumonia. CXR: Emphysema, mild patchy airspace opacities in right upper lobe new from prior Leukocytosis 16.88 with left shift on admit, downtrending started on Rocephin/azithromycin, will continue another 24hr then consider transition to oral abx Syncope and Unresponsive episode - - likely had vasovagal episode after using the bathroom in the setting of volume depletion with a community-acquired pneumonia. -No confusion at bedside assessment, no focal weakness. CThead is normal Infrarenal aortic aneurysm - Mild fusiform aneurysmal dilation of infrarenal segment of a abdominal aorta 3 cm recommend continued serial imaging as outpatient Patient is a former smoker, no active tobacco use Fluoroquinolone use not recommended, Electrolyte Abnormalities on admit Magnesium 1.7, repleted Lumbar radiculopathy, right lower extremity weakness No bowel or bladder incontinence Does have radiating pain from his back down his leg and into his foot and some sensory numbness and tingling. - further eval if symptoms worsens DVT prophylaxis: Lovenox Diet: Heart healthy Disposition: Medical telemetry CODE STATUS: Full code (2) Lumbar back pain with radiculopathy affecting right lower extremity: (3) NHL (non-Hodgkin's lymphoma): Admission and Anticipated Discharge Date Admission Date: November 20, 2022 Supervising Physician Co-Signing Physician Notes Resident Physician Supervision Note: I independently interviewed and examined the patient and verified the bae history and physical, reviewed labs and image studies and agree with resident findings and care plan. Subjective Patient seen at bedside. States his fever broke at 3am this morning after he soaked through the bed, feels better than on admit breathing easier however still very tired and not feeling like baseline. Appetite improved Physical Exam Constitutional: well developed, well nourished, cooperative and comfortable Eyes: PERRL, conjunctivae normal, anicteric sclerae ENMT: external ear and nose normal, oropharynx normal Neck: trachea midline, no thyromegaly Respiratory: normal respiratory effort Auscultation: + crackles (LLL) Cardiovascular: Rate/Rhythm: regular rate and regular rhythm Gastrointestinal (Abdomen): Inspection/Auscultation: abdomen normal to inspection Percussion/Palpation: abdomen soft; abdomen nontender Skin: no rashes, warm and dry Results & Data Results & Data Vital Signs (Past 12 Hours) Vital Signs Temp Pulse Pulse Pulse Resp BP Pulse Ox 11/21/22 07:16 36.8 C 75 14 132/56 L 95 11/21/22 03:17 37.2 C 77 16 129/60 94 11/21/22 00:00 88 11/20/22 20:45 87 11/20/22 23:13 38.4 C H 97 H 18 115/52 L 94 11/20/22 20:45 37.2 C 88 16 160/81 H 98 11/20/22 20:45 11/20/22 20:45 37.2 C 88 16 160/81 H 98 O2 Del Method 11/21/22 07:16 Room Air 11/21/22 03:17 Room Air 11/21/22 00:00 11/20/22 20:45 11/20/22 23:13 Room Air 11/20/22 20:45 Room Air 11/20/22 20:45 Room Air 11/20/22 20:45 Room Air Resident Activity Tracking Resident Involvement: Resident Care Provided Care Provided: Adult Hospital Medicine
[2022-11-21 07:53] LABS: BUN Creatinine Ratio 13.5 (10-20); Calcium 8.3 mg/dl (8.6-10.3); Creatinine Clr Calc Pharmacy 98.1 ml/min; Est GFR (African American) 103.3 ml/min; Est GFR (Non-African American) 89.1 ml/min
[2022-11-21] MEDS: PANTOprazole 40 MG TAB PO SCH (07:53)
[2022-11-21] MEDS: AZITHROMYCIN 250 MG in DEXTROSE 5% 250 ML IV SCH (07:53)
[2022-11-21] MEDS: ACETAMINOPHEN 500 MG TAB PO SCH ×3 (08:49→23:15)
[2022-11-21] MEDS ORDERED: KETOROLAC TROMETHAMINE 15 MG/ML VIAL IV ONE (15:00)
[2022-11-21] MEDS: AZELASTINE HCL 0.1% NASAL 200 SPRAYS/27,400 MCG BTL SCH ×2 (16:55→20:21)
[2022-11-21] MEDS ORDERED: cefTRIAXone SODIUM 2,000 MG in DEXTROSE 5% 50 ML IV SCH (18:00)
--- NOTE | 2022-11-21 23:35 | Magnetic Resonance Report ---
Exam(s): MRI L SPINE Without Contrast EXAM: MR Lumbar Spine Without Intravenous Contrast CLINICAL HISTORY: Reason for exam: leg pain/paresthesia.. TECHNIQUE: Magnetic resonance images of the lumbar spine without intravenous contrast in multiple planes. COMPARISON: CT abdomen and pelvis 11/20/22 FINDINGS: Vertebral body height and alignment are maintained. There is no acute fracture or traumatic subluxation. There is no discitis-osteomyelitis. T1 hyperintense, T2 hyperintense intraosseous lesions in the L1, L4, L5, and S1 vertebral bodies are compatible with benign intraosseous hemangiomas. Conus medullaris is seen opposite L1 and is normal in caliber and signal. There is multilevel disc desiccation, greatest at L3-L4, L4-L5, L5-S1. There is mild disc height loss at the L5-S1 level. Disc heights appear otherwise maintained. There is mild multilevel facet degeneration, progressive caudally. L1-L2: No spinal canal or foraminal narrowing. L2-L3: No spinal canal or foraminal narrowing. L3-L4: Facet degeneration with facet joint effusions. No spinal canal or foraminal narrowing. L4-L5: Facet degeneration with facet joint effusions. Mild right foraminal narrowing. Spinal canal and left foramen are patent. L5-S1: Facet degeneration with facet joint effusions. No spinal canal narrowing. Disc and facet degeneration results in moderate bilateral foraminal narrowing. Sacroiliac joints appear normally aligned. Paravertebral soft tissues are unremarkable. IMPRESSION: 1. No acute osseous findings. Significant central spinal canal stenosis. 2. Mild degenerative changes as detailed above. 3. Mild right foraminal narrowing at L4-L5. 4. Moderate bilateral foraminal narrowing at L5-S1. Electronically signed by: Katerine Davis M.D. 11/21/22 23:34 PM
[2022-11-22 06:48] LABS: Hematocrit (blood only) 38.6 % (42.0-52.0); Hemoglobin 13.1 g/dl (14.0-18.0); Mean Corpuscular Hgb Conc 33.9 g/dL (32.0-36.0); Mean Corpuscular Volume 91.3 fL (80.0-100.0); Mean Platelet Volume 11.2 fL (9.4-12.4); Platelet Count 264 K/uL (130-400); RDW Coefficient of Variation 12.7 % (11.5-14.5); RDW Standard Deviation 42.5 fL (36.4-46.3); Red Blood Count 4.23 M/uL (4.70-6.10); White Blood Count 8.36 K/ul (4.8-10.8)
[2022-11-22 07:27] LABS: BUN Creatinine Ratio 13.3 (10-20); Calcium 8.4 mg/dl (8.6-10.3); Creatinine Clr Calc Pharmacy 87.6 ml/min; Est GFR (African American) 92.7 ml/min; Potassium 4.1 mmol/L (3.5-5.1)
--- NOTE | 2022-11-22 07:56 | Hospitalist Progress Note ---
Date of Service November 22, 2022 Assessment & Plan Admission and Anticipated Discharge Date Admission Date: November 20, 2022 Results & Data Results & Data Vital Signs (Past 12 Hours) Vital Signs Temp Pulse Pulse Resp BP Pulse Ox O2 Del Method 11/22/22 07:01 36.6 C 65 18 149/76 H 94 Room Air 11/22/22 02:18 36.6 C 57 L 18 105/60 95 Room Air 11/21/22 22:00 74 11/21/22 23:12 36.8 C 63 18 145/70 H 95 Room Air
[2022-11-22] MEDS: AZELASTINE HCL 0.1% NASAL 200 SPRAYS/27,400 MCG BTL SCH (08:54)
[2022-11-22] MEDS: ACETAMINOPHEN 500 MG TAB PO SCH (08:54)
[2022-11-22] MEDS: PANTOprazole 40 MG TAB PO SCH (08:54)
[2022-11-22] MEDS: AZITHROMYCIN 250 MG in DEXTROSE 5% 250 ML IV SCH (08:55)
[2022-11-22] MEDS ORDERED: CEFDINIR 300 MG CAP PO SCH (10:00)
[2022-11-22] MEDS ORDERED: AZITHROMYCIN 250 MG TAB PO SCH (10:00)
--- NOTE | 2022-11-22 10:19 | Discharge Summary ---
Date of Service November 22, 2022 Admission HPI Per Admitting Provider Prashanth is a 67-year-old male with a past medical history of lumbar radiculopathy with right lower extremity radiculopathy who presents with Prashanth is seen at the bedside with his . Had been very fatigued for 3-4 days. Had a bad cough while at work. 3:30 today started shaking so violently he almost passed out and had freezing chills. Walked up to his wifes work and then like he was burning up with a fever. Went to go to the bathroom today and passed out. Cough is productive for yelloish sputum Not sure if he had a temperature Has felt more shrot of breath x3-4 days No nausea, vomiting, or diarrhea. no constipation Former 30 pack her history. Early COPD on low dose CT screening. No inhaler use. Has had intermittent wheezing which has not occured since he quit smoking Hx of Si joint dysfunction on Right side, s/p injection which did not help and with intermittent sciatia. No bowel/bladder x. Pending outpatient lumbar MRI. +dysuria, no retention. R hip flexion. Qualitative different feel in R foot to soft touch Episode of unresponsiveness, staring, did no respond. Did nto fall or shake but was not responsive and does not remember the episode. Sternal wires s/p nonhodgkins lymphoma remova. Was performed at [facility] November 1995, no recurrent cancer after chemo and radiation. Medical History: Reviewed Medications: Reviewed Surgical History: Reviewed Family history: Reviewed Allergies: Reviewed Social History: Former smoker, quit smoking 6-8 months ago. Former 1ppd use x30 year use. Rare social etoh. No rec drug use Code Status: Full Code Admission Exam Per Admitting Provider General: A&Ox3. NAD. Cooperative. HEENT: Atraumatic, normocephalic. PERLAA. EOM/Vision intact Pulm: Diminished, crackles in the bases. -wheezes, -rales, -rhonchi. Symmetrical chest rise. No increased work of breathing. No respiratory distress. Cardiac: RRR, -mrg. Radial pulses intact and symmetrical. Abdominal: Nontender, nondistended, soft. BS present. CRANIAL NERVES: II: Pupils equal and reactive, no relative afferent pupillary defect, no VF cuts III, IV, : EOM intact, no gaze preference or deviation, no nystagmus. V: normal sensation in V1, V2, and V3 segments bilaterally VII: no asymmetry, no nasolabial fold flattening VIII: normal hearing to speech IX, X: normal palatal elevation, no uvular deviation XI: 5/5 head turn and 5/5 shoulder shrug bilaterally XII: midline tongue protrusion MOTOR: RUE: 5/5 dental ceramist assistant strength, finger flexion/extension, interosseus LUE: 5/5 dental ceramist assistant strength, finger flexion/extension, interosseus RLE: 5/5 to hip flexion, knee flexion/extension, ankle dorsiflexion/plantarflexion. Fatigues easily. LLE: 5/5 to hip flexion, knee flexion/extension, ankle dorsiflexion/plantarflexion SENSORY: Normal to touch, in upper and lower extremities without deficit or asymmetry Principal Diagnosis Pneumonia Discharge Exam Constitutional Constitutional: well developed, well nourished, cooperative and comfortable Eyes: PERRL, conjunctivae normal, anicteric sclerae ENMT: external ear and nose normal, oropharynx normal Neck: trachea midline, no thyromegaly Respiratory: normal respiratory effort Auscultation: cta b/l Cardiovascular: Rate/Rhythm: regular rate and regular rhythm Gastrointestinal (Abdomen): Inspection/Auscultation: abdomen normal to inspection Percussion/Palpation: abdomen soft; abdomen nontender Skin: no rashes, warm and dry Discharge Data Allergies Allergy/AdvReac Type Severity Reaction Status Date / Time No Known Allergies Allergy Unknown Verified 11/20/22 16:24 Consultations 11/20/22 17:40 ED Decision to Admit Stat Ordered Studies 11/20/22 15:01 CT abd pelvis IV con only Stat CT head/brain wo con Stat 11/21/22 16:10 MRI Lumbar Spine [MR lumbar spine wo con] Routine Hospital Course (1) CAP (community acquired pneumonia): Community-acquired pneumonia - CTA/P: Mild left lower lobe pneumonia. CXR: Emphysema, mild patchy airspace opacities in right upper lobe new from prior Leukocytosis 16.88 with left shift on admit, downtrending started on Rocephin/azithromycin in hospital -will dc on azithromycin 250mg for 2 days starting tomorrow (for a total of 5 days), and cefdinir 300mg BID for 5 days starting this evening (for a total of 7 days) -patient to f/u with PCP to check on immunizations Unresponsive episode - - likely had vasovagal episode after using the bathroom in the setting of volume depletion with a community-acquired pneumonia. -No confusion at bedside assessment, no focal weakness. CThead is normal Infrarenal aortic aneurysm - Mild fusiform aneurysmal dilation of infrarenal segment of a abdominal aorta 3 cm recommend continued serial imaging as outpatient Patient is a former smoker, no active tobacco use Fluoroquinolone use not recommended Anemia -hgb mildly low at 13.1, -To have outpatient f/u. Lumbar radiculopathy, right lower extremity weakness No bowel or bladder incontinence Does have radiating pain from his back down his leg and into his foot and some sensory numbness and tingling. - MRI lumbar spine: No acute osseous findings. Significant central spinal canal stenosis. Mild degenerative changes as detailed above. Mild right foraminal narrowing at L4-L5. Moderate bilateral foraminal narrowing at L5-S1. - Further management by pain mx as outpatient. (2) Lumbar back pain with radiculopathy affecting right lower extremity: (3) NHL (non-Hodgkin's lymphoma): Total Time Total Time Spent Total Time Spent (In Minutes): see attending attestation Discharge Plan Discharge Items Patient Disposition: Home - Self-Care Reason For Visit: CAP, RIGORS Discharge Diagnosis: Pneumonia Activity: Resume your previous activity Non-emergency contact: Primary Care Provider Call non-emergency contact if: you have any medication questions, your symptoms worsen, your pain is concerning for you and you have a fever Follow-up/Referrals: Maggie Tipton DO [Primary Care Provider] - 12/01/22 9:05 am (at the [facility] ) Diet: Regular Addtl Attending Provider Instructions: You were admitted to the hospital for pneumonia. You were treated with antibiotics, and your symptoms improved. You will be discharged on the antibiotics called Azithromycin and Cefdinir, please complete your full course of antibiotics to ensure complete resolution of your pneumonia. Please meet up with your PCP upon discharge to ensure that your vaccinations are up to date. You had an MRI of your lower back done in the hospital. There was mild degenerative disease noted, but nothing significant that should prevent you from participating in physical therapy or chiropractice. A discharge summary will be sent to your primary care physician to ensure continuity of care. Please bring this discharge summary with you to your next office appointment so that your provider can review it at that time. Follow-up appointments: Make a follow-up appointment with your PCP within the next week. It is very important that you follow up with them shortly after discharge from the hospital. Keep all your follow-up appointments as already scheduled. If you cannot make an appointment, notify your provider. Medications: Your medication list has been reviewed and reconciled upon discharge to ensure accuracy and continuity of care. An updated list of all your medications is included with your hospital discharge paperwork. Please review this list closely, and make note of any changes. * We sent a new medication called Azithromycin to your pharmacy. Take Azithromycin 250mg one tablet daily for 2 days starting tomorrow. * We sent a new medication called Cefdinir to your pharmacy. Take Cefdinir 300mg one tablet twice a day for 5 days starting this evening. Take your medications as instructed; do not skip a dose of your medicines. Make sure all of your doctors know every medicine you are taking (including weqp-jzf-khzbiik medicines, vitamins, and supplements). Call your primary care provider before taking any new medicines (including oyhk-vbp-ruzwjci medicines, vitamins, and supplements), because some of these may interact with your current medications, or may make your symptoms worse. Tell your primary care provider if you cannot afford your medications. CONTACT YOUR PRIMARY CARE PROVIDER if you experience any of the following: Increased difficulty breathing Persistent fever, weakness Difficulty following your treatment plan, or difficulty taking medications CALL 911 OR GO TO THE EMERGENCY DEPARTMENT if you experience any of the following: Sudden, severe abdominal pain or nausea/vomiting Severe chest pain, or chest pain that radiates (moves) to your jaw or arm Sudden, severe shortness of breath or difficulty breathing Thank you for allowing us to participate in your care. Pending Studies at Discharge: No Stand-Alone Forms: My Icanbesponsored, Work/School Release, Smoking Cessation Medications and DC Order Prescriptions: New azithromycin 250 mg Tablet 250 mg PO QAM 2 Days Qty: 2 0RF Rx Instructions: first dose 11/23/22 cefdinir 300 mg Capsule 300 mg PO BID 5 Days Qty: 9 0RF Rx Instructions: First dose starting this evening Continued multivitamin Tablet 1 tab PO QAM ascorbic acid (vitamin C) [Vitamin C] 1,000 mg Tablet 1,000 mg PO QAM pantoprazole 40 mg Tablet,Delayed Release (Dr/Ec) 40 mg PO DAILY Discharge Orders: Discharge Order (Routine); Ordered 11/22/22 Ordered By: Keren Sesay Admission Data Admit Date/Time: 11/20/22 18:42 Attending Provider: Dior Posada Admit Provider: Jim Gonzalez Primary Care Provider: Maggie Tipton Other Providers: Jim Gonzalez Other Interventions: Discharge Summary Assessment (RN) Last Done: 11/22/22 13:24 Supervising Physician Co-Signing Physician Notes Resident Physician Supervision Note: I independently interviewed and examined the patient and verified the bae history and physical, reviewed labs and image studies and agree with resident findings and care plan. Resident Activity Tracking Resident Involvement: Resident Care Provided Care Provided: Adult Hospital Medicine
== END 2022-11-22 14:38 | disposition home or self-care (01) | DRG 195 ==
LOC: ED 14:20 → SUATTDRO 18:42 → 2E 18:42

== ENCOUNTER 2023-12-01 19:24 | Inpatient (IN) ==
--- OUTSIDE RECORDS SUMMARY | 2023-12-01 19:32 | External Medical Summary | Continuity of Care Document ---
Author Name Unknown Organization [facility] Address [address] [place] [address] AUBREY KRISHNA [id number] Care Team Providers Care Finishing Inspector Name Role Phone Maggie Tipton Primary Care Physician [id number] Encounter [facility] [id number] Date(s): 11/08/23 - 11/08/23 [facility] [id number], [place] [address]- [phone] Encounter Diagnosis Primary adenocarcinoma of upper lobe of right lung(Discharge Diagnosis) - 11/08/23 Discharge Disposition: Home or Self Care Attending Physician: MD Cony, Justin Roman Referring Physician: MD Khanna Yu Allergies, Adverse Reactions, Alerts No Known Allergies Immunizations Given and Recorded Vaccine Date Status Refusal Reason pneumococcal 20-valent conjugate vaccine 12/21/22 Given SARS-CoV-2 (COVID-19) Ad26 vaccine 1 06/16/21 Eldon rded 1Result Comment: 2022-04-17: Historical information-source unspecified Medications Albuterol (Eqv-ProAir HFA) 90 mcg/inh inhalation aerosol Start: 10/01/23 10:52:00 EST, 2 puff, inhaled, q6h, Disp# 3 kit, Refills: 3, [facility] Start Date: 10/01/23 Status: Ordered ezetimibe 10 mg oral tablet Start: 10/01/23 10:52:00 EST, 1 tab, PO, Daily, Disp# 90 tab, Refills: 3, [facility] Start Date: 10/01/23 Status: Ordered nicotine 14 mg/24 hr transdermal film, extended release Start: 10/01/23 10:41:00 EST, 1 patch, transdermal, Daily, Disp# 30 patch, Refills: 1, Pharmacy: [facility] Start Date: 10/01/23 Status: Ordered olmesartan 5 mg oral tablet Start: 10/01/23 10:53:00 EST, 2 tab, PO, Daily, Disp# 180 tab, Refills: 3, Pharmacy: [facility] Start Date: 10/01/23 Status: Ordered pantoprazole 40 mg oral delayed release tablet Start: 10/01/23 10:53:00 EST, See Instructions, Disp# 90 tab, Refills: 3, Take 1 tablet by mouth once daily, Pharmacy: [facility] Start Date: 10/01/23 Status: Ordered triamcinolone 0.1% topical cream Start: 01/10/23 13:52:00 EDT, 1 appl, topical, bid, Disp# 30 g, Refills: 1, Pharmacy: [facility] Start Date: 01/10/23 Status: Ordered Mental Status 11/08/23 Barriers to Learning one year None evide nt Mandatory Health Literacy Documentation Yes Health Literacy Communication Barriers N ever Primary Language Algerian Problem List Condition Confirmation Course Effective Dates Status Health Status Informant AAA (abdominal aortic aneurysm) Confirmed Active Bloating Confirmed Active Anemia Confirmed Active Rutherford's esophagus determined by biopsy 1 Confirmed 11/19/18 Active Coronary artery calcification of craig artery 2 Confirmed 09/22/20 Active Cigarette smoker Confirmed Active Aortic calcification 3 Confirmed 09/22/20 Active Duodenogastric reflux 4 Confirmed 11/14/18 Active Elevated blood pressure reading Confirmed Active GERD (gastroesophageal reflux disease) Confirmed Active Headache Confirmed Active History of adenomatous polyp of colon Confirmed Active History of non-Hodgkin's lymphoma Confirmed Active Hypercholesterolemia Confirmed Active Hyperlipidemia Confirmed Active HTN (hypertension) Confirmed Active Incomplete right bundle branch block Confirmed 09/16/20 Active Low back pain Confirmed Active Lumbar radiculopathy Confirmed Active Lung mass Confirmed Active Pulmonary nodule seen on imaging study Confirmed Active Pneumonia Confirmed Active Emphysema/COPD Confirmed Active Sacro-iliac pain Confirmed Active Spinal stenosis Confirmed Active Tobacco abuse Confirmed Active Weight disorder Confirmed Active 1Pt. not responding to multiple efforts to schedule recheck EGD 2on chest CT 3on chest CT 4on HIDA scan Diagnosis Diagnosis Type Effective Dates Health Status Clinical Service Informant Primary adenocarcinoma of upper lobe of right lung Discharge Diagnosis 11/08/23 Procedures Procedure Date Related Diagnosis Body Site Status Chest X-ray 1 11/20/[address] of abdomen and pelvis 2 11/20/[address] of head 3 11/20/22 Completed MRI of lumbar spine 4 11/20/22 Com pleted Colonoscopy 5 08/18/22 Completed Esophagogastroduodenoscopy 6, 7 08/18/22 Completed Plain X-ray of lumbar spine 8 06/08/[address] of lungs 9 04/28/22 Completed Lung cancer screening 10 09/22/20 Completed EGD - Esophagogastroduodenoscopy 11 11/19/18 Completed HIDA scan 12 11/14/18 Completed Colonoscopy 13, 14 01/11/[address] of abdomen and pelvis wit h contrast 15, 16 12/10/17 Completed Thoracotomy 1994 Completed 1Impression: 1. There are mild patchy airspace opacities in the right upper lobe which are new from previous. Correlate clinically for evidence of pneumonia/ aspiration pneumonitis. Radiographic follow- up to resolution is recommended. 2Impression: 1. Mild left lower lobe pneumonia. 2. No acute intra-abdominal or intrapelvic abnormality. 3. Hepatic steatosis. 4. Mild fusiform aneurysmal dilation of the infra infrarenal segmant of the abdominal aorta, 3 cm. 5. Additional findings as above. 3Impression: No acute intrcranial abnormality. 4Impression: 1. No acute osseous findings. Significant central spinal canal stenosis. 2. Mild degenerative changes as above. 3. Mild right foraminal narrowing L4-L5 4. Moderate bilateral forminal narrowing at L5- S1. 5COLO to cecum lipoma DC, 2 rectal polyps CF, 6EGD antral erythema bx, Barretts bx, 7Pathology: Stomach,antrum bx: gastric antral/body mucosa with reactive gastropathy. No definitive morphologic evicenc of H. pylori organisms. Esophagus, lower thir, biopsy: Intestinal metaplasia consistent with Rutherford's esophagus, negative for dysplasia. Squamous epithelium with inflammatory and re active epithelial changes consistent with gastroesophageal refluys. Multiple polyps, rectum: fragments of huperplastic polyp. 8Impression: 1. No fractures or subluxation within the lumbar spine. 2. Degenerative changes as described above. 9Impression: Emphysema withi bronchial wall thickending suggestive of bronchitis. Mild right basilar predominantmucus plugging. No suspicious pumonary nodules. Overall lung RADS category:2- Benign appearance of behavior- Nodules wiht a very low likelihood of becoming a clinically active cancer due to size or lack of growth. Continue annual screening. 101. Emphysema. 2. There is no airspace consolidation or pleural effusion. 3. No concerning pulmonary lesion is identified. 11Barretts esophagus 12Normal contractile response of gallbladder to Kinevac infusion Moderate to extensive enterogastric reflux Gallbladder EF is 81% 13tubular adenoma; repeat in 3 years 14One 10mm polyp in the ascending colon, removed with a hot snare. Resected and retrieved. One 3mm polyp in the rectum, removed with a cold biopsy forceps. Resected and retrieved. Await pathology. 15Addendum: No evidence for acute diverticulitis. 16Impression: 1. No bowel wall thickening or obstruction 2. Normal appendix 17at [facility], for thoracic Non-Hodgkins Lymphoma Vital Signs Most recent to oldest [Reference Range]: 1 Height 174 cm (11/08/23 9:49 AM) Patient Weight 100.3 kg (11/08/23 9:49 AM) Body Mass Index 33.13 kg/m2 (11/08/23 9:49 AM) Temperature [36.5-37.9 DegC] 36.8 DegC (11/08/23 9:49 AM) Heart Rate 84 bpm (11/08/23 9:49 AM) Respiratory Rate 18 br/min (11/08/23 9:49 AM) Blood Pressure 139/79mmHg (11/08/23 9:49 AM) Cuff Pulse Pressure 60 mmHg (11/08/23 9:49 AM) BP Location # 1 Left Arm (11/08/23 9:49 AM) Social History Social History Type Response Tobacco Current every day sm oker Smoking Status Former Smoker, quit > 1 yr Sex Male Patient Care team information Care Team Personnel Name: MD Dawson, Matheus Roman Position: Physician - Family Med Member Role: Lifetime Relationship Address: Address: [address] [place] [address] Name: DO Tipton Kristen M Position: Physician - Family Med Member Role: Lifetime Relationship Address: Address: [address] [place] [address] [place] Name: OVIDIO Workman Lynn Position: Physician Transportation Department Head Exempt - Vasc Surg Member Role: Lifetime Relationship Address: Address: [address] [place] [address] [address] [place] [address] Care Team Related Persons Name: MELLY MEDINA Address: home [address] AUBREY KURTZ [phone]
--- NOTE | 2023-12-01 19:38 | Emergency Department Note ---
History of Present Illness General Chief complaint: Illness Stated complaint: VOMITING/DIARRHEA/UNABLE TO EAT Time Seen by Provider: 12/01/23 19:27 History of Present Illness Provider Complaint: + nausea, + vomiting, + diarrhea and + abdominal pain Onset (ago): day(s) 2 Description of Vomiting: no bilious, no blood-streaked, no bloody or no coffee grounds Description of Diarrhea: no tarry, no blood-streaked or no bloody (bright red) Associated Abdominal Pain: Yes Location of pain: + diffuse Quality: + cramping, + stabbing and + sharp Pain Consistency: + constant Relieved By: + none Exacerbated By: + bowel movement and + vomiting Context: + new medication (Patient recently started chemotherapy for lung cancer prescribed by Dr. Gonzáles earlier this week); no recent antibiotic use, no alcohol abuse, no trauma, no anticoagulant use, no smoking, no CO exposure or no marijuana use Associated symptoms: + myalgias, + cough and + headaches; no chest pain, no fever/chills or no shortness of breath Home Medications Medication Instructions Recorded Confirmed Type multivitamin 1 tab PO QAM 10/31/18 08/01/23 History pantoprazole 40 mg tablet,delayed 40 mg PO DAILY 08/24/21 08/01/23 History release ezetimibe 10 mg tablet 10 mg PO DAILY 06/07/23 08/01/23 History olmesartan 20 mg tablet 10 mg PO DAILY 07/11/23 08/01/23 History olmesartan 5 mg tablet 10 mg PO DAILY 12/01/23 12/01/23 History Allergies Allergy/AdvReac Type Severity Reaction Status Date / Time No Known Allergies Allergy Unknown Verified 12/01/23 23:02 Past Med/Surg History Medical History CAP (community acquired pneumonia) Lumbar pain with radiation down right leg NHL (non-Hodgkin's lymphoma) (~1994) surgery + chemotherapy. remission currently Surgical History History of colonoscopy History of esophagogastroduodenoscopy (EGD) Hx of surgical procedure tumor removal from chest "open surgery" Family History Other No pertinent family history Social History Smoking Status: Former smoker Tobacco Type: Cigarettes Cigarettes Per Day: 12; Second Hand Exposure: No; Do You Dip or Chew Tobacco: No; Hx Alcohol Use: Yes Alcohol type: beer Hx Substance Use: No Preferred Language: Czech Communication Ability: Effective Gang Vibrator Operator Required: No Beliefs That Will Affect Care: None Current Living Situation: Spouse current occupational status: employed Feels Safe at Home: Yes Assistive Devices: None Physical Exam 2 Vital Signs: Vital Signs - 24 hr 12/01/23 19:41 12/01/23 19:41 12/01/23 19:41 Temperature 36.5 C Temperature Source Oral Pulse Rate 97 H Pulse Rate [Apical ] Pulse Rate from Sp O2 Sensor Respiratory Rate 22 20 Respiratory Effort / Characteristics Respiratory Depth Normal Normal Blood Pressure 110/74 Blood Pressure [Ri ght Arm] Blood Pressure Leslie n 86 Blood Pressure Leslie n [Right Arm] Pulse Oximetry 96 97 Oxygen Delivery Me thod Room Air Room Air Sepsis Recent Feve r Within 48 Hours No Sepsis New/Unexpla ined Change in Men lauren Status N/A Sepsis Action Take n by Nursing No Action Required 12/01/23 20:11 12/01/23 21:30 12/01/23 21:53 Temperature Temperature Source Pulse Rate Pulse Rate [Apical ] 97 H 86 Pulse Rate from Sp O2 Sensor 95 H Respiratory Rate 22 18 22 Respiratory Effort / Characteristics Non-Labored Respiratory Depth Normal Normal Blood Pressure 132/73 Blood Pressure [Ri ght Arm] 118/65 132/73 Blood Pressure Leslie n 92 Blood Pressure Leslie n [Right Arm] 82 92 Pulse Oximetry 98 96 93 Oxygen Delivery Me thod Room Air Room Air Room Air Sepsis Recent Feve r Within 48 Hours Sepsis New/Unexpla ined Change in Men lauren Status Sepsis Action Take n by Nursing Physical Exam: Physical Exam GENERAL: He is oriented to person, place, and time. He appears well-developed and well-nourished. HENT: Exam performed. - Head: Normocephalic and atraumatic. - Right Ear: External ear normal. No mastoid erythema - Left Ear: External ear normal. No mastoid erythema - Mouth/Throat: The oropharynx is clear and moist. No trismus in the jaw. No dental abscesses or uvula swelling. No oropharyngeal exudate or tonsillar abscesses. EYES: Conjunctivae and EOM are normal. Pupils are equal, round, and reactive to light. Right eye exhibits no discharge. Left eye exhibits no discharge. No scleral icterus. NECK: Normal range of motion. Neck supple. No JVD present. CV: Normal rate, regular rhythm, normal heart sounds and intact distal pulses. There is no peripheral edema. Palpable radial pulses bue. PULM/CHEST: Effort normal and breath sounds normal. No respiratory distress. No stridor. He has no wheezes. He has no rales. ABD: The abdomen is soft. He has no distension. No mass is present. There is no tenderness. There is no rebound, no guarding. MUSC/SKEL: Normal range of motion. There is no peripheral edema, tenderness or deformity. NEURO: He is alert and oriented to person, place, and time. He has normal strength. No cranial nerve deficit or sensory deficit. Coordination and gait normal. GCS eye subscore is 4. GCS verbal subscore is 5. GCS motor subscore is 6. Cerebellar tests wnl. SKIN: Skin is warm and dry. He is not diaphoretic. PSYCH: He has a normal mood and affect. Behavior is normal. Judgment and thought content normal. Course Course 1926: The patient was evaluated in room C10. A complete history and physical exam was performed Cardiac monitoring: An order was placed for continuous cardiac monitoring. The monitor shows a rate of with [] rhythm interpreted by ak 2202: Vital signs stable. CT of the head within normal limits. Chest x-ray within normal limits. CT of the abdomen pelvis shows no inflammation but does show fluid in the colon consistent with a diarrheal illness. White blood cell count 2.67 hemoglobin 17.9 hematocrit 52.2. Absolute neutrophil count 0.72. Coagulation studies within normal limits. VBG shows a venous pH of 7.38 venous pCO2 of 61 venous bicarb of 36. Potassium 3.4 creatinine 1.17. Total bilirubin 2.4 direct bilirubin 1.4 AST 38 ALT 73. Lactic acid within normal limits. Procalcitonin within normal limits. Urinalysis within normal limits. RSV COVID influenza negative. Patient states he has not been unable to give a stool sample in the emergency department. Patient states he feels no better. Discussed case with his oncologist Dr. Gonzáles who referred him to the emergency department she requested the patient be observed overnight and be given IV fluids overnight and she will evaluate the patient in the morning. Patient be admitted to the [facility] team. Administered Medications Sodium Chloride (Nss) 1,000 mls @ 125 mls/hr IV .Q8H KIERRA Stop: 12/31/23 22:14 Last Admin: 12/01/23 22:24 Dose: 125 mls/hr Documented By: MMG Discontinued Medications Sodium Chloride (Nss) 1,000 mls @ 999 mls/hr IV .Q1H1M KIERRA Stop: 12/01/23 20:45 Last Infusion: 12/01/23 21:24 Dose: Infused Documented By: Admin: 12/01/23 19:58 Dose: 999 mls/hr Documented By: DONNA Ioversol (Optiray 320 100ml) 94 ml IV ONCE ONE Stop: 12/01/23 20:14 Last Admin: 12/01/23 20:13 Dose: 94 ml Documented By: BRIAN Ondansetron HCl (Ondansetron Inj 2 Mg/Ml 2 Ml Vial) 4 mg IV NOW STA Stop: 12/01/23 20:41 Last Admin: 12/01/23 21:24 Dose: 4 mg Documented By: DONNA Ondansetron HCl (Ondansetron Inj 2 Mg/Ml 2 Ml Vial) 4 mg IV NOW STA Stop: 12/01/23 22:03 Last Admin: 12/01/23 22:24 Dose: 4 mg Documented By: DONNA Medical Decision Making Laboratory Data Attestation: I reviewed the patient's lab results. 12/01/23 19:48 12/01/23 19:48 Lab Results 12/01/23 12/01/23 12/01/23 Range/Units 19:48 19:55 20:26 WBC 2.67 L (4.8-10.8) K/ul RBC 5.82 (4.70-6.10) M/uL Hgb 17.9 (14.0-18.0) g/dl POC Hgb 18.4 H (14.0-18.0) g/dl Hct 52.2 H (42.0-52.0) % POC Hct 54 H (42-52) % MCV 89.7 (80.0-100.0) fL MCH 30.8 (25.0-34.0) pg MCHC 34.3 (32.0-36.0) g/dL RDW Std Deviation 40.8 (36.4-46.3) fL RDW Coeff of Osiel 12.5 (11.5-14.5) % Plt Count 244 (130-400) K/uL MPV 11.6 (9.4-12.4) fL Neutrophils % (Manual) 27 % Lymphocytes % (Manual) 71 % Eosinophils % (Manual) 2 % Neutrophils # (Manual) 0.72 L (1.40-6.50) K/uL Total Absolute Neuts 0.72 L* (1.4-6.5) K/uL Lymphocytes # (Manual) 1.90 (1.2-3.4) K/uL Total Abs Lymphocytes 1.90 (1.2-3.4) K/uL Eosinophils # (Manual) 0.05 (0-0.50) K/uL PT 10.1 (9.0-12.0) Seconds INR 0.9 (0.9-1.1) APTT 22 (21-31) Seconds PTT Ratio 0.8 VBG pH 7.38 (7.36-7.41) VBG pCO2 61 H (38-50) mmHg VBG pO2 20 mmHg VBG HCO3 36 mmol/L VBG O2 Saturation < 60.0 % VBG Base Excess 8.7 mEq/L POC Sodium 137 (135-144) mmol/L Sodium 138 (136-145) mmol/L POC Potassium 3.6 (3.3-5.0) mmol/L Potassium 3.4 L (3.5-5.1) mmol/L POC Chloride 97 L (101-112) mmol/L Chloride 98 (98-107) mmol/L Carbon Dioxide 31 (21-32) mmol/L POC Total CO2 33 H (24-31) mmol/L Anion Gap 9 (3-11) POC Anion Gap 12.0 L (16-25) mmol/L POC BUN 35 H (7-18) mg/dl BUN 31 H (6-23) mg/dl Creatinine 1.17 (0.6-1.4) mg/dl POC Creatinine 1.2 (0.6-1.3) mg/dl Est Cr Clr Drug Dosing 72.8 ml/min Est GFR ( Amer) 74.3 ml/min Est GFR (Non-Af Amer) 64.1 ml/min BUN/Creatinine Ratio 26.5 H (10-20) Glucose 105 H (70-99(Fasting)) mg/dl POC Glucose (other) 104 H (70-99) mg/dl Lactate 1.3 (0.4-2.0) mmol/L Calcium 8.4 L (8.6-10.3) mg/dl POC Ioniz Calcium Antonino 1.01 L (1.12-1.32) mmol/l Magnesium 2.0 (1.7-2.4) mg/dl Total Bilirubin 2.4 H (0.2-1.0) mg/dl Direct Bilirubin 1.4 H (0-0.2) mg/dl AST 38 (13-39) U/L ALT 73 H (7-52) U/L Alkaline Phosphatase 66 (34-104) U/L Troponin I High Sens 6.9 (0-20) pg/ml Total Protein 6.8 (6.0-8.3) gm/dl Albumin 3.8 (3.4-5.0) gm/dl Lipase 15 (11-82) U/L Procalcitonin 0.19 (0-0.5) ng/ml Urine Color Urine Appearance (Clear) Urine pH (4.5-7.5) Ur Specific [place] (1.000-1.030) Urine Protein (Negative) Urine Glucose (UA) (Negative) Urine Ketones (Negative) Urine Blood (Negative) Urine Nitrite (Negative) Urine Bilirubin (Negative) Urine Urobilinogen (Negative) Ur Leukocyte Esterase (Negative) SARS-CoV-2 (PCR) NEGATIVE (Negative) Influenza Type A (PCR) Negative (Neg) Influenza Type B (PCR) Negative (Neg) RSV (RT-PCR) Negative (Neg) 12/01/23 Range/Units Unknown WBC (4.8-10.8) K/ul RBC (4.70-6.10) M/uL Hgb (14.0-18.0) g/dl POC Hgb (14.0-18.0) g/dl Hct (42.0-52.0) % POC Hct (42-52) % MCV (80.0-100.0) fL MCH (25.0-34.0) pg MCHC (32.0-36.0) g/dL RDW Std Deviation (36.4-46.3) fL RDW Coeff of Osiel (11.5-14.5) % Plt Count (130-400) K/uL MPV (9.4-12.4) fL Neutrophils % (Manual) % Lymphocytes % (Manual) % Eosinophils % (Manual) % Neutrophils # (Manual) (1.40-6.50) K/uL Total Absolute Neuts (1.4-6.5) K/uL Lymphocytes # (Manual) (1.2-3.4) K/uL Total Abs Lymphocytes (1.2-3.4) K/uL Eosinophils # (Manual) (0-0.50) K/uL PT (9.0-12.0) Seconds INR (0.9-1.1) APTT (21-31) Seconds PTT Ratio VBG pH (7.36-7.41) VBG pCO2 (38-50) mmHg VBG pO2 mmHg VBG HCO3 mmol/L VBG O2 Saturation % VBG Base Excess mEq/L POC Sodium (135-144) mmol/L Sodium (136-145) mmol/L POC Potassium (3.3-5.0) mmol/L Potassium (3.5-5.1) mmol/L POC Chloride (101-112) mmol/L Chloride (98-107) mmol/L Carbon Dioxide (21-32) mmol/L POC Total CO2 (24-31) mmol/L Anion Gap (3-11) POC Anion Gap (16-25) mmol/L POC BUN (7-18) mg/dl BUN (6-23) mg/dl Creatinine (0.6-1.4) mg/dl POC Creatinine (0.6-1.3) mg/dl Est Cr Clr Drug Dosing ml/min Est GFR ( Amer) ml/min Est GFR (Non-Af Amer) ml/min BUN/Creatinine Ratio (10-20) Glucose (70-99(Fasting)) mg/dl POC Glucose (other) (70-99) mg/dl Lactate (0.4-2.0) mmol/L Calcium (8.6-10.3) mg/dl POC Ioniz Calcium Antonino (1.12-1.32) mmol/l Magnesium (1.7-2.4) mg/dl Total Bilirubin (0.2-1.0) mg/dl Direct Bilirubin (0-0.2) mg/dl AST (13-39) U/L ALT (7-52) U/L Alkaline Phosphatase (34-104) U/L Troponin I High Sens (0-20) pg/ml Total Protein (6.0-8.3) gm/dl Albumin (3.4-5.0) gm/dl Lipase (11-82) U/L Procalcitonin (0-0.5) ng/ml Urine Color Yellow Urine Appearance Clear (Clear) Urine pH 6.5 (4.5-7.5) Ur Specific [place] 1.035 H (1.000-1.030) Urine Protein Negative (Negative) Urine Glucose (UA) Negative (Negative) Urine Ketones Negative (Negative) Urine Blood Negative (Negative) Urine Nitrite Negative (Negative) Urine Bilirubin Negative (Negative) Urine Urobilinogen Negative (Negative) Ur Leukocyte Esterase Negative (Negative) SARS-CoV-2 (PCR) (Negative) Influenza Type A (PCR) (Neg) Influenza Type B (PCR) (Neg) RSV (RT-PCR) (Neg) Imaging Data Attestation: I personally reviewed and interpreted this imaging study as follows: My Impression: Chest x-ray negative. Airway clear. No pneumothorax. No consolidation. No cardiomegaly or cephalization.. No free air under the diaphragm. No fractures of the skeletal structures. Radiologist's Impression: Chest X-Ray 12/01/23 19:34 XR chest 1V portable HISTORY: 68 years-old Male Sepsis acute sepsis COMPARISON: 10/26/2023 TECHNIQUE: AP view of the chest FINDINGS: Cardiac silhouette is mildly enlarged. Median sternotomy. No pneumothorax or overt pulmonary edema. Unchanged blunting of the lateral left costophrenic angle. Mild linear left basilar atelectasis versus scarring. No airspace consolidation typical for pneumonia. The bones appear grossly intact. IMPRESSION: No acute process. ACT 112: Negative or not required by law. The above report was generated using voice recognition software. It may contain grammatical, syntax or spelling errors. Electronically signed by: Rene Woods M.D. 12/01/2023 7:58 PM ECG Data Attestation: I personally reviewed and interpreted this ECG as follows: Indication: nausea Rate (beats per minute): 96 Rhythm: normal sinus Findings: no ST depression, no ST elevation or no prolonged QT [facility] Narrative 1927: The patient was evaluated in room C10. A complete history and physical exam was performed Cardiac monitoring: An order was placed for continuous cardiac monitoring. The monitor shows a rate of with [] rhythm interpreted by me 2202: Vital signs stable. CT of the head within normal limits. Chest x-ray within normal limits. CT of the abdomen pelvis shows no inflammation but does show fluid in the colon consistent with a diarrheal illness. White blood cell count 2.67 hemoglobin 17.9 hematocrit 52.2. Absolute neutrophil count 0.72. Coagulation studies within normal limits. VBG shows a venous pH of 7.38 venous pCO2 of 61 venous bicarb of 36. Potassium 3.4 creatinine 1.17. Total bilirubin 2.4 direct bilirubin 1.4 AST 38 ALT 73. Lactic acid within normal limits. Procalcitonin within normal limits. Urinalysis within normal limits. RSV COVID influenza negative. Patient states he has not been unable to give a stool sample in the emergency department. Patient states he feels no better. Discussed case with his oncologist Dr. Gonzáles who referred him to the emergency department she requested the patient be observed overnight and be given IV fluids overnight and she will evaluate the patient in the morning. Patient be admitted to the [facility] hospitalist team. Impression & Plan Nausea & vomiting, Diarrhea Discharge Plan Visit Data Chief Complaint: Illness Stated Complaint: VOMITING/DIARRHEA/UNABLE TO EAT ED Provider: Franck Wolff Discharge Problem: Nausea & vomiting, Diarrhea Patient Disposition: Being Evaluated by Hospitalist Forms Stand Alone Forms: My [facility], Important Visit Information Prescriptions Prescriptions: No Action ezetimibe 10 mg tablet 10 mg PO DAILY olmesartan 20 mg tablet 10 mg PO DAILY multivitamin Tablet 1 tab PO QAM ascorbic acid (vitamin C) [Vitamin C] 1,000 mg Tablet 1,000 mg PO QAM pantoprazole 40 mg Tablet,Delayed Release (Dr/Ec) 40 mg PO DAILY olmesartan 5 mg tablet 10 mg PO DAILY Referrals Referrals: Maggie Tipton DO [Primary Care Provider] - Discharge Problem: Nausea & vomiting Qualifiers: Vomiting type: unspecified Qualified Code(s): R11.2 - Nausea with vomiting, unspecified Diarrhea Qualifiers: Diarrhea type: unspecified type Qualified Code(s): R19.7 - Diarrhea, unspecified
[2023-12-01] MEDS: SODIUM CHLORIDE 0.9% 1,000 ML IV SCH ×2 (19:58→22:24)
--- NOTE | 2023-12-01 19:59 | XRay Report ---
XR chest 1V portable HISTORY: 68 years-old Male Sepsis acute sepsis COMPARISON: 10/26/2023 TECHNIQUE: AP view of the chest FINDINGS: Cardiac silhouette is mildly enlarged. Median sternotomy. No pneumothorax or overt pulmonary edema. U nchanged blunting of the lateral left costophrenic angle. Mild linear left basilar atelectasis versus scarring. No airspace consolidation typical for pneumonia. The bones appear grossly intact. IMPRESSION: No acute process. ACT 112: Negative or not required by law. The above report was generated using voice recognition software. It may contain grammatical, syntax o r spelling errors. Electronically signed by: Rene Woods M.D. 12/01/2023 7:58 PM
[2023-12-01 20:07] LABS: iSTAT Creatinine 1.2 mg/dl (0.6-1.3); iSTAT Hemoglobin 18.4 g/dl (14.0-18.0); iSTAT Ionized Calcium 1.01 mmol/l (1.12-1.32); iSTAT Potassium 3.6 mmol/L (3.3-5.0)
[2023-12-01 20:12] LABS: Hematocrit (blood only) 52.2 % (42.0-52.0); Hemoglobin 17.9 g/dl (14.0-18.0); Mean Corpuscular Hemoglobin 30.8 pg (25.0-34.0); Mean Corpuscular Hgb Conc 34.3 g/dL (32.0-36.0); Mean Corpuscular Volume 89.7 fL (80.0-100.0); Mean Platelet Volume 11.6 fL (9.4-12.4); Platelet Count 244 K/uL (130-400); RDW Coefficient of Variation 12.5 % (11.5-14.5); RDW Standard Deviation 40.8 fL (36.4-46.3); Red Blood Count 5.82 M/uL (4.70-6.10); White Blood Count 2.67 K/ul (4.8-10.8)
[2023-12-01] MEDS: OPTIRAY 320 100ml IV ONE (20:13)
[2023-12-01 20:28] LABS: Albumin Level 3.8 gm/dl (3.4-5.0); BUN Creatinine Ratio 26.5 (10-20); Bilirubin Direct 1.4 mg/dl (0-0.2); Bilirubin,Total 2.4 mg/dl (0.2-1.0); Calcium 8.4 mg/dl (8.6-10.3); Creatinine Clr Calc Pharmacy 72.8 ml/min; Est GFR (African American) 74.3 ml/min; Est GFR (Non-African American) 64.1 ml/min; Potassium 3.4 mmol/L (3.5-5.1); Total Protein 6.8 gm/dl (6.0-8.3)
[2023-12-01 20:35] LABS: Base Excess VBG 8.7 mEq/L; HCO3 VBG 36 mmol/L; Oxygen Saturation VBG < 60.0 %; PCO2 VBG 61 mmHg (38-50); PO2 VBG 20 mmHg; pH VBG 7.38 (7.36-7.41)
[2023-12-01 20:36] LABS: Troponin I High Sensitivity 6.9 pg/ml (0-20)
[2023-12-01 20:41] LABS: INR 0.9 (0.9-1.1); Partial Thromboplastin Ratio 0.8; Partial Thromboplastin Time 22 Seconds (21-31); Prothrombin Time 10.1 Seconds (9.0-12.0)
--- NOTE | 2023-12-01 20:44 | CT Scan Report ---
Exam(s): CT ABDOMEN + PELVIS With Contrast IV Amt: OPTIRAY 320 94ML EXAM: CT Abdomen and Pelvis With Intravenous Contrast CLINICAL HISTORY: Reason for exam: nvd abd pain on chemo. TECHNIQUE: Axial computed tomography images of the abdomen and pelvis with intravenous contrast. CTDI is 20.14 mGy and DLP is 1527.97 mGy-cm. Automated exposure control was utilized for the study. A dose lowering technique was utilized adhering to the principles of ALARA. CONTRAST: Patient received OPTIRAY 320 94ML of IV contrast COMPARISON: 11/20/22 FINDINGS: Lung bases: Resolution of previously seen left lower lobe pneumonia. ABDOMEN: Liver: Probable hepatic steatosis. Gallbladder and bile ducts: Unremarkable. No calcified stones. No ductal dilation. Pancreas: Unremarkable. No mass. No ductal dilation. Spleen: Unremarkable. No splenomegaly. Adrenals: Unremarkable. No mass. Kidneys and ureters: Unremarkable. No solid mass. No hydronephrosis. Stomach and bowel: Colonic fluid levels suggesting diarrheal disease. No mucosal thickening. No bowel obstruction. PELVIS: Appendix: Normal appendix. Bladder: Unremarkable. No mass. Reproductive: Unremarkable as visualized. ABDOMEN and PELVIS: Intraperitoneal space: Unremarkable. No free air. No significant fluid collection. Bones/joints: No acute fracture. No dislocation. Soft tissues: Unremarkable. Vasculature: Atherosclerosis. Stable fusiform ectasia of the infrarenal aorta measuring 2.8 cm. Lymph nodes: Unremarkable. No enlarged lymph nodes. IMPRESSION: 1. Resolution of previously seen left lower lobe pneumonia. 2. Colonic fluid levels suggesting diarrheal disease. Electronically signed by: Katerine Davis M.D. 12/01/23 20:44 PM
[2023-12-01 20:45] LABS: Influenza A virus by PCR Negative (Neg); Influenza B virus by PCR Negative (Neg); RSV by PCR Negative (Neg); SARS CoV2 RNA(COVID-19) Ceph NEGATIVE (Negative)
--- NOTE | 2023-12-01 20:46 | CT Scan Report ---
Exam(s): CT HEAD Without Contrast EXAM: CT Head Without Intravenous Contrast CLINICAL HISTORY: Reason for exam: frazier. TECHNIQUE: Axial computed tomography images of the head/brain without intravenous contrast. CTDI is 38 mGy and DLP is 546 mGy-cm. Automated exposure control was utilized for the study. A dose lowering technique was utilized adhering to the principles of ALARA. COMPARISON: 11/20/22 FINDINGS: Brain: Unremarkable. No hemorrhage. No significant white matter disease. No edema. Allen-white matter differentiation maintained. Ventricles: Unremarkable. No hydrocephalus. Bones/joints: Unremarkable. No acute fracture. Soft tissues: Unremarkable. Sinuses: Unremarkable as visualized. No acute sinusitis. Mastoid air cells: Unremarkable as visualized. No mastoid effusion. IMPRESSION: No acute intracranial process. Electronically signed by: Katerine Davis M.D. 12/01/23 20:46 PM
[2023-12-01 20:50] LABS: ANC (manual) 0.72 K/uL (1.4-6.5); Eosinophils # (manual) 0.05 K/uL (0-0.50); Eosinophils % (manual) 2 %; Lymphocytes % (manual) 71 %; Neutrophils # (manual) 0.72 K/uL (1.40-6.50); Neutrophils % (manual) 27 %
[2023-12-01] MEDS: ONDANSETRON INJ 2 MG/ML 2 ML VIAL IV STA ×2 (21:24→22:24)
[2023-12-01 21:44] LABS: Appearance Urine Clear (Clear); Bilirubin Urine Negative (Negative); Blood Urine Negative (Negative); Color Urine Yellow; Glucose Urine UA Negative (Negative); Ketones Urine Negative (Negative); Leukocyte Esterase Urine Negative (Negative); Nitrite Urine Negative (Negative); Protein Urine Negative (Negative); Specific Gravity Urine 1.035 (1.000-1.030); Urobilinogen Urine Negative (Negative); pH Urine 6.5 (4.5-7.5)
--- NOTE | 2023-12-01 22:55 | History & Physical Report ---
Date of Service December 01, 2023 Assessment & Plan (1) Nausea vomiting and diarrhea: Plan: 68yo male with recently diagnosed lung cancer, initiated chemotherapy on 11/27/23 now with abdominal pain, nausea, vomiting and diarrhea. Patient unable to tolerate PO. He is afebrile, HD stable. Labs are with neutropenia. CT with evidence of diarrhea state, no evidence of typhlitis. Patient does appear to be dehydrated on exam and labs a well -Admit to medical -Check stool PCR -IVF with LR +KCl at 125mL/hr x 2 liters -Repeat chemistry in AM -Zofran PRN -Morphine PRN abdominal pain (2) Neutropenia: Plan: Patient is afebrile. -Isolation neutropenic precautions -Follow cultures sent from ER (3) Abnormal LFTs: Plan: Patient with Tbii of 2.4, DBili o 1.4. Liver unremarkable on imaging -Repeat LFTs in AM (4) Hypertension: Plan: Chronic -Hold Olmesartan for now -Continue to monitor BP (5) Hyperlipidemia: Plan: Chronic. Stable -Hold Zetia for now (6) GERD (gastroesophageal reflux disease): Plan: Chronic. Stable -Continue Protonix - will give 40mg IV daily until nausea improves History of Present Illness Chief Complaint: abdominal pain, nausea and vomiting Primary Care Provider: DO Prashanth Ramanmanuel is a 68yo male with history of HTN, HLP, GERD and recently diagnosed lung cancer presenting with nausea, vomiting, diarrhea and abdominal pain. Patient recently started on chemotherapy (uncertain which medications - treatment was 11/27/23). Patient has been having persistent nausea, vomiting, diarrhea and abdominal pain for the last 2-3 days. Pain is cramping, stabbing and diffuse. He has had multiple episodes of non-bloody/non-bilious emesis - three episodes today with last one being prior to admission. He has had watery diarrhea as well. He has had poor appetite and decreased oral intake as well as myalgias, cough and headache. He denies fever No rash, oral pain or facial pain, no dysuria No additional complaints at this time No sick contacts or recent travel. In the ER he is afebrile, HD stable Allergies Allergy/AdvReac Type Severity Reaction Status Date / Time No Known Allergies Allergy Unknown Verified 12/01/23 23:02 Home Medications Medication Instructions Recorded Confirmed Type pantoprazole 40 mg tablet,delayed 40 mg PO DAILY 08/24/21 12/01/23 History release ezetimibe 10 mg tablet 10 mg PO DAILY 06/07/23 12/01/23 History dexamethasone 4 mg tablet 4 mg PO BID 12/01/23 12/01/23 History folic acid 1 mg tablet 1 mg PO .DAILY/UD 12/01/23 12/01/23 History olanzapine 2.5 mg tablet 2.5 mg PO HS 12/01/23 12/01/23 History olmesartan 5 mg tablet 10 mg PO DAILY 12/01/23 12/01/23 History ondansetron HCl 8 mg tablet 8 mg PO Q8H PRN Nausea And Vomiting 12/01/23 12/01/23 History prochlorperazine maleate 10 mg 10 mg PO Q6H PRN Nausea 12/01/23 12/01/23 History tablet Past Med/Surg History Medical History (Updated 12/02/23 @ 04:18 by Anu Fang DO) GERD (gastroesophageal reflux disease) Hyperlipidemia Hypertension CAP (community acquired pneumonia) Lumbar pain with radiation down right leg NHL (non-Hodgkin's lymphoma) (~1994) surgery + chemotherapy. remission currently Surgical History History of colonoscopy History of esophagogastroduodenoscopy (EGD) Hx of surgical procedure tumor removal from chest "open surgery" Family History Other No pertinent family history Social History Smoking Status: Former smoker Tobacco Type: Cigarettes Cigarettes Per Day: 12; Second Hand Exposure: No; Do You Dip or Chew Tobacco: No; Hx Alcohol Use: Yes Alcohol type: beer Hx Substance Use: No Preferred Language: Chilean Communication Ability: Effective Ms Sql Developer Required: No Beliefs That Will Affect Care: None Current Living Situation: Spouse current occupational status: employed Other Information That Helps Us Care for You: No Feels Safe at Home: Yes Safety Concerns: Feels Safe At This Time Assistive Devices: None Review of Systems Review of Systems: All systems reviewed & are unremarkable except as noted in HPI & below Physical Exam Physical Exam: General: patient ill in appearance, in distress secondary to abdominal pain Skin: warm, dry, intact, no rashes or lesions HEENT: NC/AT, PERRL, EOMI, anicteric sclera, conjunctiva without injection, external ear normal to inspection and nontender, nares patent, dry mucus membranes, dentition intact, no oropharyngeal lesions, neck supple, trachea midline, no LAD, no thyromegaly, no JVD Heart: +S1/S2, regular, no m/r/g Lungs: equal air entry bilaterally, no rales/rhonchi/wheezes Abd: +BS, soft, tender, no masses/organomegaly or ascites Ext: warm, 2+ pulses in UE/LE bilaterally, no clubbing/cyanosis or edema Neuro: nonfocal, patient AA&O x 4, speech intact, no facial droop, moving all extremities on command with equal strength 5/5 Results & Data Results & Data Vital Signs (Past 12 Hours) Vital Signs Temp Pulse Pulse Resp BP BP Pulse Ox 12/01/23 21:53 22 132/73 93 12/01/23 21:30 86 18 132/73 96 12/01/23 20:11 97 H 22 118/65 98 12/01/23 19:41 20 12/01/23 19:41 97 12/01/23 19:41 36.5 C 97 H 22 110/74 96 O2 Del Method 12/01/23 21:53 Room Air 12/01/23 21:30 Room Air 12/01/23 20:11 Room Air 12/01/23 19:41 12/01/23 19:41 Room Air 12/01/23 19:41 Room Air Laboratory Results Laboratory Results WBC 2.67 K/ul (4.8-10.8) L 12/01/23 19:48 RBC 5.82 M/uL (4.70-6.10) 12/01/23 19:48 Hgb 17.9 g/dl (14.0-18.0) 12/01/23 19:48 POC Hgb 18.4 g/dl (14.0-18.0) H 12/01/23 19:55 Hct 52.2 % (42.0-52.0) H 12/01/23 19:48 POC Hct 54 % (42-52) H 12/01/23 19:55 MCV 89.7 fL (80.0-100.0) 12/01/23 19:48 MCH 30.8 pg (25.0-34.0) 12/01/23 19:48 MCHC 34.3 g/dL (32.0-36.0) 12/01/23 19:48 RDW Std Deviation 40.8 fL (36.4-46.3) 12/01/23 19:48 RDW Coeff of Osiel 12.5 % (11.5-14.5) 12/01/23 19:48 Plt Count 244 K/uL (130-400) 12/01/23 19:48 MPV 11.6 fL (9.4-12.4) 12/01/23 19:48 Neutrophils % (Manual) 27 % 12/01/23 19:48 Lymphocytes % (Manual) 71 % 12/01/23 19:48 Eosinophils % (Manual) 2 % 12/01/23 19:48 Neutrophils # (Manual) 0.72 K/uL (1.40-6.50) L 12/01/23 19:48 Total Absolute Neuts 0.72 K/uL (1.4-6.5) L* 12/01/23 19:48 Lymphocytes # (Manual) 1.90 K/uL (1.2-3.4) 12/01/23 19:48 Total Abs Lymphocytes 1.90 K/uL (1.2-3.4) 12/01/23 19:48 Eosinophils # (Manual) 0.05 K/uL (0-0.50) 12/01/23 19:48 PT 10.1 Seconds (9.0-12.0) 12/01/23 19:48 INR 0.9 (0.9-1.1) 12/01/23 19:48 APTT 22 Seconds (21-31) 12/01/23 19:48 PTT Ratio 0.8 12/01/23 19:48 VBG pH 7.38 (7.36-7.41) 12/01/23 20:26 VBG pCO2 61 mmHg (38-50) H 12/01/23 20:26 VBG pO2 20 mmHg 12/01/23 20:26 VBG HCO3 36 mmol/L 12/01/23 20:26 VBG O2 Saturation < 60.0 % 12/01/23 20:26 VBG Base Excess 8.7 mEq/L 12/01/23 20:26 POC Sodium 137 mmol/L (135-144) 12/01/23 19:55 Sodium 138 mmol/L (136-145) 12/01/23 19:48 POC Potassium 3.6 mmol/L (3.3-5.0) 12/01/23 19:55 Potassium 3.4 mmol/L (3.5-5.1) L 12/01/23 19:48 POC Chloride 97 mmol/L (101-112) L 12/01/23 19:55 Chloride 98 mmol/L (98-107) 12/01/23 19:48 Carbon Dioxide 31 mmol/L (21-32) 12/01/23 19:48 POC Total CO2 33 mmol/L (24-31) H 12/01/23 19:55 Anion Gap 9 (3-11) 12/01/23 19:48 POC Anion Gap 12.0 mmol/L (16-25) L 12/01/23 19:55 POC BUN 35 mg/dl (7-18) H 12/01/23 19:55 BUN 31 mg/dl (6-23) H 12/01/23 19:48 Creatinine 1.17 mg/dl (0.6-1.4) 12/01/23 19:48 POC Creatinine 1.2 mg/dl (0.6-1.3) 12/01/23 19:55 Est Cr Clr Drug Dosing 72.8 ml/min 12/01/23 19:48 Est GFR ( Amer) 74.3 ml/min 12/01/23 19:48 Est GFR (Non-Af Amer) 64.1 ml/min 12/01/23 19:48 BUN/Creatinine Ratio 26.5 (10-20) H 12/01/23 19:48 Glucose 105 mg/dl (70-99(Fasting)) H 12/01/23 19:48 POC Glucose (other) 104 mg/dl (70-99) H 12/01/23 19:55 Lactate 1.3 mmol/L (0.4-2.0) 12/01/23 20:26 Calcium 8.4 mg/dl (8.6-10.3) L 12/01/23 19:48 POC Ioniz Calcium Antonino 1.01 mmol/l (1.12-1.32) L 12/01/23 19:55 Phosphorus 3.0 mg/dl (2.5-4.9) 12/01/23 19:48 Magnesium 2.0 mg/dl (1.7-2.4) 12/01/23 19:48 Total Bilirubin 2.4 mg/dl (0.2-1.0) H 12/01/23 19:48 Direct Bilirubin 1.4 mg/dl (0-0.2) H 12/01/23 19:48 AST 38 U/L (13-39) 12/01/23 19:48 ALT 73 U/L (7-52) H 12/01/23 19:48 Alkaline Phosphatase 66 U/L (34-104) 12/01/23 19:48 Troponin I High Sens 6.9 pg/ml (0-20) 12/01/23 19:48 Total Protein 6.8 gm/dl (6.0-8.3) 12/01/23 19:48 Albumin 3.8 gm/dl (3.4-5.0) 12/01/23 19:48 Lipase 15 U/L (11-82) 12/01/23 19:48 Procalcitonin 0.19 ng/ml (0-0.5) 12/01/23 19:48 Urine Color Yellow 12/01/23 Unknown Urine Appearance Clear (Clear) 12/01/23 Unknown Urine pH 6.5 (4.5-7.5) 12/01/23 Unknown Ur Specific [place] 1.035 (1.000-1.030) H 12/01/23 Unknown Urine Protein Negative (Negative) 12/01/23 Unknown Urine Glucose (UA) Negative (Negative) 12/01/23 Unknown Urine Ketones Negative (Negative) 12/01/23 Unknown Urine Blood Negative (Negative) 12/01/23 Unknown Urine Nitrite Negative (Negative) 12/01/23 Unknown Urine Bilirubin Negative (Negative) 12/01/23 Unknown Urine Urobilinogen Negative (Negative) 12/01/23 Unknown Ur Leukocyte Esterase Negative (Negative) 12/01/23 Unknown SARS-CoV-2 (PCR) NEGATIVE (Negative) 12/01/23 19:48 Influenza Type A (PCR) Negative (Neg) 12/01/23 19:48 Influenza Type B (PCR) Negative (Neg) 12/01/23 19:48 RSV (RT-PCR) Negative (Neg) 12/01/23 19:48 Impressions Abdomen/Pelvis CT 12/01/23 19:33 Exam(s): CT ABDOMEN + PELVIS With Contrast IV Amt: OPTIRAY 320 94ML EXAM: CT Abdomen and Pelvis With Intravenous Contrast CLINICAL HISTORY: Reason for exam: nvd abd pain on chemo. TECHNIQUE: Axial computed tomography images of the abdomen and pelvis with intravenous contrast. CTDI is 20.14 mGy and DLP is 1527.97 mGy-cm. Automated exposure control was utilized for the study. A dose lowering technique was utilized adhering to the principles of ALARA. CONTRAST: Patient received OPTIRAY 320 94ML of IV contrast COMPARISON: 11/20/22 FINDINGS: Lung bases: Resolution of previously seen left lower lobe pneumonia. ABDOMEN: Liver: Probable hepatic steatosis. Gallbladder and bile ducts: Unremarkable. No calcified stones. No ductal dilation. Pancreas: Unremarkable. No mass. No ductal dilation. Spleen: Unremarkable. No splenomegaly. Adrenals: Unremarkable. No mass. Kidneys and ureters: Unremarkable. No solid mass. No hydronephrosis. Stomach and bowel: Colonic fluid levels suggesting diarrheal disease. No mucosal thickening. No bowel obstruction. PELVIS: Appendix: Normal appendix. Bladder: Unremarkable. No mass. Reproductive: Unremarkable as visualized. ABDOMEN and PELVIS: Intraperitoneal space: Unremarkable. No free air. No significant fluid collection. Bones/joints: No acute fracture. No dislocation. Soft tissues: Unremarkable. Vasculature: Atherosclerosis. Stable fusiform ectasia of the infrarenal aorta measuring 2.8 cm. Lymph nodes: Unremarkable. No enlarged lymph nodes. IMPRESSION: 1. Resolution of previously seen left lower lobe pneumonia. 2. Colonic fluid levels suggesting diarrheal disease. Electronically signed by: Katerine Davis M.D. 12/01/23 20:[address] 12/01/23 19:33 Exam(s): CT HEAD Without Contrast EXAM: CT Head Without Intravenous Contrast CLINICAL HISTORY: Reason for exam: frazier. TECHNIQUE: Axial computed tomography images of the head/brain without intravenous contrast. CTDI is 38 mGy and DLP is 546 mGy-cm. Automated exposure control was utilized for the study. A dose lowering technique was utilized adhering to the principles of ALARA. COMPARISON: 11/20/22 FINDINGS: Brain: Unremarkable. No hemorrhage. No significant white matter disease. No edema. Allen-white matter differentiation maintained. Ventricles: Unremarkable. No hydrocephalus. Bones/joints: Unremarkable. No acute fracture. Soft tissues: Unremarkable. Sinuses: Unremarkable as visualized. No acute sinusitis. Mastoid air cells: Unremarkable as visualized. No mastoid effusion. IMPRESSION: No acute intracranial process. Electronically signed by: Katerine Davis M.D. 12/01/23 20:46 PM Chest X-Ray 12/01/23 19:34 XR chest 1V portable HISTORY: 68 years-old Male Sepsis acute sepsis COMPARISON: 10/26/2023 TECHNIQUE: AP view of the chest FINDINGS: Cardiac silhouette is mildly enlarged. Median sternotomy. No pneumothorax or overt pulmonary edema. Unchanged blunting of the lateral left costophrenic angle. Mild linear left basilar atelectasis versus scarring. No airspace consolidation typical for pneumonia. The bones appear grossly intact. IMPRESSION: No acute process. ACT 112: Negative or not required by law. The above report was generated using voice recognition software. It may contain grammatical, syntax or spelling errors. Electronically signed by: Rene Woods M.D. 12/01/2023 7:58 PM ECG Additional Comments: EKG with NSR at 96bpm, normal axis, OW=387, QRS=96, KTb=814, no acute ischemic changes Code Status & VTE Plan VTE Prophylaxis Plan VTE Prophylaxis will be ordered: Yes PG Care Time/CCT Total # of Minutes Spent Total Time Spent with Patient: Total time spent is greater than 50% in coordination of care (as documented) at patient's floor/unit and/or counseling patient: Coding Level of Care Code 70391 INT INP/OBS CARE 3/75MIN Diagnoses Nausea vomiting and diarrhea R11.2; R19.7 Neutropenia D70.9 Abnormal LFTs R79.89 Hypertension I10 Hyperlipidemia E78.5 GERD (gastroesophageal reflux disease) K21.9
[2023-12-01] MEDS ORDERED: ONDANSETRON INJ 2 MG/ML 2 ML VIAL IV PRN (23:44)
[2023-12-01] MEDS ORDERED: MoRPHine SULFATE 2 MG/ML CARP IV PRN (23:44)
[2023-12-02] MEDS: POTASSIUM CHLORIDE 20 MEQ in LACTATED RINGER'S 1,000 ML IV SCH (00:38)
[2023-12-02 06:33] LABS: Hematocrit (blood only) 51.7 % (42.0-52.0); Hemoglobin 17.5 g/dl (14.0-18.0); Mean Corpuscular Hemoglobin 30.2 pg (25.0-34.0); Mean Corpuscular Hgb Conc 33.8 g/dL (32.0-36.0); Mean Corpuscular Volume 89.1 fL (80.0-100.0); Mean Platelet Volume 11.8 fL (9.4-12.4); Platelet Count 237 K/uL (130-400); RDW Coefficient of Variation 12.5 % (11.5-14.5); RDW Standard Deviation 41.1 fL (36.4-46.3); White Blood Count 2.58 K/ul (4.8-10.8)
[2023-12-02 06:47] LABS: Albumin Level 3.5 gm/dl (3.4-5.0); BUN Creatinine Ratio 24.4 (10-20); Bilirubin Direct 1.8 mg/dl (0-0.2); Bilirubin,Total 2.9 mg/dl (0.2-1.0); Calcium 8.4 mg/dl (8.6-10.3); Creatinine Clr Calc Pharmacy 66.2 ml/min; Est GFR (African American) 67.3 ml/min; Est GFR (Non-African American) 58.1 ml/min; Potassium 3.6 mmol/L (3.5-5.1); Total Protein 6.1 gm/dl (6.0-8.3)
--- NOTE | 2023-12-02 07:16 | Electrocardiogram Report ---
Test Reason : Blood Pressure : / mmHG Vent. Rate : 096 BPM Atrial Rate : 096 BPM P-R Int : 126 ms QRS Dur : 096 ms QT Int : 354 ms P-R-T Axes : 012 -19 040 degrees QTc Int : 447 ms Normal sinus rhythm Normal ECG When compared with ECG of 20-NOV-2022 14:39, No significant change was found Confirmed by Jaden Villa ([id number]) on 12/02/2023 7:16:02 AM Referred By: REFERRED SELF Confirmed By:Oscar Villa
--- NOTE | 2023-12-02 07:46 | Oncology Consultation ---
Date of Consultation December 02, 2023 Assessment & Plan (1) Nausea vomiting and diarrhea: (2) Neutropenia: Plan -Intractable Nausea, vomiting and diarrhea likely due to cisplatin. Agree with IVF hydration, antiemetics. Consider staring reglan if nausea/vomiting persists -Since he poorly tolerated cycle 1 of treatment, will switch from cisplatin/pemetrexed/pembrolizumab to carboplatin/pemetrexed/nivolumab for subsequent cycles. -Recommend GCSF with filgrastim 480mcg daily x 2-3 days (hold when ANC is above 1500) Thank you for this consult. Oncology will continue following patient while he is in the hospital. Feel free to call if you have any further questions. History of Present Illness Reason for Consultation: Nausea, vomiting and diarrhea postchemotherapy Attending Physician: Patricia Crowder MD History of Present Illness Mr. Moran is a 68-year-old gentleman With history of non-Hodgkin's lymphoma in 1994 s/p sternotomy with resection followed by chemotherapy and radiation treatments. 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 He presented to the ER at [facility] with nausea, vomiting, diarrhea and dizziness. States that symptoms have been present for [address] abdomen and pelvis on 12/01/2023 revealed colonic fluid levels suggestive of diarrheal disease. Labs revealed leukopenia with white cell count of 2.67 and ANC of 0.7. He denies fever, chills. States that he is feeling a little bit better and has been able to drink some liquids today. Allergies Allergy/AdvReac Type Severity Reaction Status Date / Time No Known Allergies Allergy Unknown Verified 12/01/23 23:02 Home Medications Medication Instructions Recorded Confirmed Type pantoprazole 40 mg tablet,delayed 40 mg PO DAILY 08/24/21 12/01/23 History release ezetimibe 10 mg tablet 10 mg PO DAILY 06/07/23 12/01/23 History dexamethasone 4 mg tablet 4 mg PO BID 12/01/23 12/01/23 History folic acid 1 mg tablet 1 mg PO .DAILY/UD 12/01/23 12/01/23 History olanzapine 2.5 mg tablet 2.5 mg PO HS 12/01/23 12/01/23 History olmesartan 5 mg tablet 10 mg PO DAILY 12/01/23 12/01/23 History ondansetron HCl 8 mg tablet 8 mg PO Q8H PRN Nausea And Vomiting 12/01/23 12/01/23 History prochlorperazine maleate 10 mg 10 mg PO Q6H PRN Nausea 12/01/23 12/01/23 History tablet Patient History Medical History (Updated 12/02/23 @ 04:18 by Anu Fang DO) GERD (gastroesophageal reflux disease) Hyperlipidemia Hypertension CAP (community acquired pneumonia) Lumbar pain with radiation down right leg NHL (non-Hodgkin's lymphoma) (~1994) surgery + chemotherapy. remission currently Surgical History History of colonoscopy History of esophagogastroduodenoscopy (EGD) Hx of surgical procedure tumor removal from chest "open surgery" Family History Other No pertinent family history Social History Smoking Status: Former smoker Tobacco Type: Cigarettes Cigarettes Per Day: 12; Second Hand Exposure: No; Do You Dip or Chew Tobacco: No; Hx Alcohol Use: Yes Alcohol type: beer Hx Substance Use: No Preferred Language: Lithuanian Communication Ability: Effective Unit Operator Required: No Beliefs That Will Affect Care: None Current Living Situation: Spouse current occupational status: employed Other Information That Helps Us Care for You: No Feels Safe at Home: Yes Safety Concerns: Feels Safe At This Time Assistive Devices: None Results & Data Vital Signs (Past 12 Hours) Vital Signs Temp Pulse Pulse Pulse Resp BP BP 12/01/23 23:30 12/01/23 23:30 37.1 C 95 H 18 103/66 12/01/23 23:30 36.6 C 95 H 19 103/66 12/01/23 23:00 96 H 14 136/81 12/01/23 22:00 98 H 18 122/74 12/01/23 21:53 22 132/73 12/01/23 21:34 88 12/01/23 21:30 86 18 132/73 12/01/23 20:11 97 H 22 118/65 Pulse Ox O2 Del Method 12/01/23 23:30 Room Air 12/01/23 23:30 95 Room Air 12/01/23 23:30 95 Room Air 12/01/23 23:00 92 12/01/23 22:00 12/01/23 21:53 93 Room Air 12/01/23 21:34 12/01/23 21:30 96 Room Air 12/01/23 20:11 98 Room Air
[2023-12-02] MEDS: FILGRASTIM 480 MCG/1.6 ML VIAL SC SCH (08:32)
[2023-12-02] MEDS: PROCHLORPERAZINE 5 MG in SYRINGE 4 ML IV ONE (08:48)
[2023-12-02] MEDS: FOLIC ACID 1 MG TAB PO SCH (08:55)
[2023-12-02 09:37] LABS: Adenovirus F 40/41 PCR Not Detected (NotDetected); Astrovirus PCR Not Detected (NotDetected); Campylobacter PCR Not Detected (NotDetected); Cryptosporidium PCR Not Detected (NotDetected); Cyclospora cayetanensis PCR Not Detected (NotDetected); Entamoeba histolytica PCR Not Detected (NotDetected); Enteroaggregative E.coli(EAEC) Not Detected (NotDetected); Enteropathogenic E.coli (EPEC) Not Detected (NotDetected); Enterotoxigenic E.coli (ETEC) Not Detected (NotDetected); Giardia lamblia PCR Not Detected (NotDetected); Norovirus GI/GII PCR Not Detected (NotDetected); Plesiomonas shigelloides PCR Not Detected (NotDetected); Rotavirus A PCR Not Detected (NotDetected); Salmonella PCR Not Detected (NotDetected); Sapovirus PCR Not Detected (NotDetected); Shiga-like Toxin E.coli (STEC) Not Detected (NotDetected); Shigella/Enteroinvasive E.coli Not Detected (NotDetected); Vibrio cholerae PCR Not Detected (NotDetected); Vibrio species PCR Not Detected (NotDetected); Yersinia enterocolitica PCR Not Detected (NotDetected)
[2023-12-02] MEDS ORDERED: LORazepam 0.5 MG in SYRINGE 0.25 ML IV PRN (10:07)
[2023-12-02] MEDS ORDERED: LORazepam 1 MG in SYRINGE 0.25 ML IV PRN (10:08)
[2023-12-02] MEDS: ENOXAPARIN INJ 40 MG/0.4 ML SYR SQ SCH (10:44)
[2023-12-02] MEDS: PANTOprazole 40 MG in SYRINGE 0 ML IV SCH (10:46)
[2023-12-02] MEDS: LORazepam 1 MG in SYRINGE 0.5 ML IV PRN (11:48)
--- NOTE | 2023-12-02 15:00 | Hospitalist Progress Note ---
Date of Service December 02, 2023 Assessment & Plan (1) Nausea vomiting and diarrhea: Plan: 68yo male with recently diagnosed lung cancer, initiated chemotherapy on 11/27/23 now with abdominal pain, nausea, vomiting and diarrhea. Patient unable to tolerate PO. He is afebrile, HD stable. Labs are with neutropenia. CT with evidence of diarrhea state, no evidence of typhlitis. Patient does appear to be dehydrated on exam and labs a well -Admit to medical -Check stool PCR -IVF with LR +KCl at 125mL/hr x 2 liters -Repeat chemistry in AM -Compazine PRN -Morphine PRN abdominal pain (2) Neutropenia: Plan: Patient is afebrile. -Isolation neutropenic precautions -Follow cultures sent from ER - [facility] monitor CBC (3) Abnormal LFTs: Plan: Patient with Tbii of 2.4, DBili o 1.4. Liver unremarkable on imaging -Repeat LFTs in AM (4) Hypertension: Plan: Chronic -Hold Olmesartan for now -Continue to monitor BP (5) Hyperlipidemia: Plan: Chronic. Stable -Hold Zetia for now (6) GERD (gastroesophageal reflux disease): Plan: Chronic. Stable -Continue Protonix - will give 40mg IV daily until nausea improves Admission and Anticipated Discharge Date Admission Date: December 01, 2023 Subjective reports abdominal discomfort, nausea, no fever, chills Review of Systems Review of Systems: All systems reviewed & are unremarkable except as noted in HPI & below Physical Exam Physical Exam: head atraumatic neck supple chest CTA b/l heart S1S2 regular abdomen soft, nt, nd, bs present extremities no edema, no clubbing Results & Data Results & Data Vital Signs (Past 12 Hours) Vital Signs Temp Pulse Resp BP Pulse Ox O2 Del Method 12/02/23 14:42 37.1 C 88 16 134/70 95 Room Air 12/02/23 13:23 37.5 C 100 H 17 126/73 95 Room Air 12/02/23 08:00 Room Air 12/02/23 07:53 37.4 C 99 H 17 114/73 94 Room Air PG Care Time/CCT Total # of Minutes Spent Total Time Spent with Patient: Total time spent is greater than 50% in coordination of care (as documented) at patient's floor/unit and/or counseling patient: Coding Level of Care Code 92130 SUB INP/OBS CARE 2/35MIN Diagnoses Nausea vomiting and diarrhea R11.2; R19.7 Neutropenia D70.9 Abnormal LFTs R79.89 Hypertension I10 Hyperlipidemia E78.5 GERD (gastroesophageal reflux disease) K21.9
[2023-12-02] MEDS: LACTATED RINGER'S 1,000 ML IV ONE (21:43)
[2023-12-02] MEDS: ACETAMINOPHEN 1,000 MG/100 ML VIAL IV PRN (22:17)
[2023-12-02] MEDS: PROCHLORPERAZINE 5 MG in SYRINGE 4 ML IV PRN (22:18)
[2023-12-03 00:01] LABS: Appearance Urine Clear (Clear); Bacteria Urine Automated None Seen (None Seen); Bilirubin Urine 1+ (Negative); Blood Urine Trace (Negative); Cast Urine Automated 0-2 /lpf (0-2); Color Urine Dark Yellow; Epithelial Cell Urine Auto 0-2 /hpf (0-2); Glucose Urine UA 2+ (Negative); Ketones Urine 1+ (Negative); Leukocyte Esterase Urine Negative (Negative); Nitrite Urine Negative (Negative); Protein Urine 2+ (Negative); Specific Gravity Urine 1.023 (1.000-1.030); Urobilinogen Urine Negative (Negative); WBC Urine Automated 0-5 /hpf (0-5)
[2023-12-03] MEDS: LACTATED RINGER'S 1,000 ML IV ONE ×3 (00:27→23:52)
[2023-12-03] MEDS: LACTATED RINGER'S 1,000 ML IV SCH (01:26)
[2023-12-03 07:45] LABS: Hematocrit (blood only) 43.6 % (42.0-52.0); Hemoglobin 15.3 g/dl (14.0-18.0); Mean Corpuscular Hemoglobin 30.4 pg (25.0-34.0); Mean Corpuscular Hgb Conc 35.1 g/dL (32.0-36.0); Mean Corpuscular Volume 86.5 fL (80.0-100.0); Mean Platelet Volume 12.1 fL (9.4-12.4); Platelet Count 135 K/uL (130-400); RDW Coefficient of Variation 12.3 % (11.5-14.5); RDW Standard Deviation 38.6 fL (36.4-46.3); Red Blood Count 5.04 M/uL (4.70-6.10); White Blood Count 1.21 K/ul (4.8-10.8)
[2023-12-03] MEDS: LOPERAMIDE HCL 2 MG CAP PO PRN (07:46)
[2023-12-03 07:49] LABS: Albumin Globulin Ratio 1.3 (0.9-2); Albumin Level 2.9 gm/dl (3.4-5.0); BUN Creatinine Ratio 20.8 (10-20); Bilirubin,Total 2.2 mg/dl (0.2-1.0); Calcium 7.8 mg/dl (8.6-10.3); Creatinine Clr Calc Pharmacy 38.9 ml/min; Est GFR (African American) 35.4 ml/min; Est GFR (Non-African American) 30.6 ml/min; Globulin 2.3 gm/dl (2.5-4.0); Magnesium 1.7 mg/dl (1.7-2.4); Phosphorus 3.2 mg/dl (2.5-4.9); Potassium 3.1 mmol/L (3.5-5.1); Total Protein 5.2 gm/dl (6.0-8.3)
[2023-12-03 08:17] LABS: Basophils # (auto) 0.01 K/uL (0.00-0.20); Basophils % (auto) 0.8 %; Eosinophils # (auto) 0.01 K/uL (0.00-0.50); Eosinophils % (auto) 0.8 %; Lymphocytes # (auto) 0.77 K/uL (1.20-3.40); Lymphocytes % (auto) 63.6 %; Monocytes # (auto) 0.12 K/uL (0.11-0.59); Monocytes % (auto) 9.9 %; Neutrophils % (auto) 24.9 %
[2023-12-03] MEDS: POTASSIUM CHLORIDE / WTR 10 MEQ/100 ML PLCT IV SCH (08:57)
[2023-12-03] MEDS: PIPER/TAZO 4.5g in D5W MINI-B 100 ML IV ONE (09:47)
--- NOTE | 2023-12-03 12:46 | Hospitalist Progress Note ---
Date of Service December 03, 2023 Assessment & Plan (1) GERD (gastroesophageal reflux disease): (2) Hyperlipidemia: (3) Hypertension: (4) Neutropenia: (5) Abnormal LFTs: (6) Sepsis: (7) NHL (non-Hodgkin's lymphoma): (8) NILSA (acute kidney injury): Plan Mr. Moran is a 68 y/o male with PMHx of recently diagnosed lung cancer (first session of chemotherapy on 11/27/23) who was admitted due to significant N/V/D and associated abdominal pain that began soon after his first session of chemotherapy. Hypotension // Hypovolemia versus Sepsis? - Patient with several days of significant N/V/D and resulting dehydration and hypovolemia - Patient given 2 boluses of 1L of LR between yesterday and today, and has been on maintenance fluids between them. A third bolus was given this am. -VS this am with hypotension and associated tachycardia, plus has had 2 episodes of fevers (38C, 38.8C), which he did not have on arrival or on days prior to arrival. Source is unclear at this time as U/A does not appear infected, CXR in the ED was unremarkable, blood cultures from 12/01/23 negative for now, and stool PCR from 12/01/23 negative - Given patient's leukopenia (1.21) with ANC of 0.30 plus his fevers from this morning and symptoms, will start antibiotic coverage with Zosyn and repeat Blood cultures. - If abdominal pain worsens, will consider repeating abdomen/pelvis CT for re- evaluation. - Blood pressures improved after bolus from this am and MAP is now ~75. -VS to be taken q4h. If hypotension persists despite fluid administration, may consider consulting ICU for possible short course of pressors. Nausea/Vomiting - Differential is chemotherapy-related N/V versus viral gastroenteritis - Continue Compazine and PPI - If nausea persists, may consider changing antiemetic to Reglan Diarrhea / Abdominal Pain - Abdomen/pelvis CT with colonic fluid levels suggesting diarrheal disease - Patient was being given immodium for management of this. - Will hold immodium for now due to fevers - Hypokalemic (K of 3.1). Will replace - Continue Tylenol and Morphine prn for pain control NILSA (pre-renal?) - Patient with bump in creatinine in am labs from 1.27 --> 2.16 - Suspect this may be related to fluid loss from several days of N/V/D - Will continue IVF and monitor am labs Lung Cancer Neutropenia - Heme/Onc following Due to poor tolerance of initial chemo regimen, planning on changing to Carboplatin/Pemetrexed/Nivolumab for subsequent cycles Getting GCSF with Filgastrim 480 mcg (day 2/3); hold when ANC is >1500 - Monitor am labs Abnormal LFTs - Improved: Total bili 2.9 --> 2.2 AST 65 --> 61 - AST and Alk Phos normal - Continue to monitor with am labs HTN - Home Olmesartan held while patient is hypotensive HLD - Zetia held for now GERD - Continue PPI IVF: LR @ 200 Diet: Clear liquid DVT ppx: Lovenox subQ DNR/DNI Admission and Anticipated Discharge Date Admission Date: December 01, 2023 Supervising Physician Co-Signing Physician Notes Attending attestation Pt seen and examined in concert with Dr. David. In agreement with the documented findings as noted in the resident documentation with any exceptions or additions as noted here. Continued abdominal pain (intermittent, diffuse), loose watery BM, and nausea, the latter of which is controlled on compazine presently. Dizziness with position change c/w presentation and improving with IVF. On examination, S1/S2 nl RRR no MCG. CTAB. Abd NT/ND BS+ve Hypotension with concern for systemic inflammatory response/sepsis w/ neutropenia fever - cultures pending, continue IV abx therapy. Fluid bolus with increased maintenance rate to re-assess throughout the day. NILSA - likely in the setting of sepsis/SIRS above. Else see resident documentation as noted. Subjective Mr. Moran is a 68 y/o male with PMHx of HTN, HLD, GERD, and recently diagnosed lung cancer who was admitted due to significant N/V and watery diarrhea associated with generalized abdominal pain that began soon after his first chemotherapy (11/27/23). He was also experiencing decreased appetite and low PO intake, as well as cough, headache, and myalgias. Today, he was evaluated at bedside and found to be aaox3, uncomfortable, and in NAD. He states he feels unwell, similar to how he felt yesterday. Nursing contacted me this morning to notify that patient had been incontinent of urine and diarrhea and that he has been dizzy with standing and increasingly weak. He also states that he has persistent generalized abdominal pain and has been unable to eat. Stools and vomit have been non-bloody. Denies chest pain, SOB, palpitations, or any other symptoms. Review of Systems Review of Systems: As per HPI. Physical Exam Physical Exam: General: AAOx3, afebrile at the time of evaluation, uncomfortable, NAD HEENT: AT, NC, [place], EOM intact Throat: normal to visual inspection CV: RRR, no r/m/g Pulm: CTA bilaterally, normal respiratory effort GI: generalized tenderness to palpation, no guarding or rebound tenderness, decreased bowel sounds, soft, mildly distended Extremity: no swelling in bilateral LE, no calf tenderness Results & Data Results & Data Vital Signs (Past 12 Hours) Vital Signs Temp Pulse Resp BP Pulse Ox O2 Del Method 12/03/23 10:56 37.2 C 83 18 99/61 L 95 Room Air 12/03/23 07:30 Room Air 12/03/23 07:16 94 Room Air 12/03/23 07:09 38.0 C H 118 H 18 93/59 L 93 Room Air 12/03/23 02:03 37.2 C 105/63 Resident Activity Tracking Resident Involvement: Resident Care Provided Care Provided: Adult Hospital Medicine
[2023-12-03] MEDS: PIPERACILLIN/TAZOBACTAM 4.5 GM in DEXTROSE 5% MINI-B 100 ML IV SCH (13:44)
[2023-12-03] MEDS ORDERED: HYDROmorphone INJ 0.5 MG/0.5 ML SYR IV PRN (16:20)
[2023-12-03] MEDS: HYDROmorphone INJ 0.5 MG/0.5 ML SYR IV PRN (17:14)
[2023-12-03] MEDS: LORazepam 0.5 MG in SYRINGE 0.25 ML IV PRN (20:54)
[2023-12-03] MEDS: LACTATED RINGER'S 500 ML IV ONE (23:00)
[2023-12-04 03:41] LABS: Albumin Globulin Ratio 1.3 (0.9-2); Albumin Level 2.5 gm/dl (3.4-5.0); BUN Creatinine Ratio 15.8 (10-20); Bilirubin,Total 1.7 mg/dl (0.2-1.0); Calcium 7.3 mg/dl (8.6-10.3); Creatinine Clr Calc Pharmacy 25.1 ml/min; Est GFR (African American) 20.8 ml/min; Magnesium 1.5 mg/dl (1.7-2.4); Potassium 2.9 mmol/L (3.5-5.1); Total Protein 4.5 gm/dl (6.0-8.3)
[2023-12-04 03:50] LABS: Basophils # (auto) 0.02 K/uL (0.00-0.20); Dohle Bodies 1+; Eosinophils # (auto) 0.02 K/uL (0.00-0.50); Hematocrit (blood only) 38.7 % (42.0-52.0); Hemoglobin 13.8 g/dl (14.0-18.0); Immature Granulocytes # (auto) 0.06 K/uL (0.01-0.20); Lymphocytes # (auto) 0.83 K/uL (1.20-3.40); Lymphocytes % (auto) 41.9 %; Mean Corpuscular Hemoglobin 30.5 pg (25.0-34.0); Mean Corpuscular Hgb Conc 35.7 g/dL (32.0-36.0); Mean Corpuscular Volume 85.6 fL (80.0-100.0); Mean Platelet Volume 12.2 fL (9.4-12.4); Monocytes # (auto) 0.23 K/uL (0.11-0.59); Monocytes % (auto) 11.6 %; Neutrophils # (auto) 0.82 K/uL (1.40-6.50); Neutrophils % (auto) 41.5 %; Platelet Count 88 K/uL (130-400); RDW Coefficient of Variation 12.1 % (11.5-14.5); RDW Standard Deviation 37.7 fL (36.4-46.3); Red Blood Count 4.52 M/uL (4.70-6.10); Toxic Granulation 1+; White Blood Count 1.98 K/ul (4.8-10.8)
[2023-12-04] MEDS: ALBUMIN 5% 250 ML IV ONE (04:12)
[2023-12-04] MEDS: MAGNESIUM SULFATE / D5W 1 GM/100 ML BAG IV SCH (04:53)
[2023-12-04] MEDS: POTASSIUM CHLORIDE / WTR 10 MEQ/100 ML PLCT IV SCH ×2 (04:53→22:00)
[2023-12-04 06:25] LABS: Creatinine Urine Random 67.4 mg/dl
--- NOTE | 2023-12-04 08:43 | Nephrology Consultation ---
Date of Consultation December 04, 2023 Assessment & Plan (1) NILSA (acute kidney injury): Relatively oliguric. Tolerating IVF reasonably well. Not hypervolemic. PO intake remains poor. There is no emergent indication for [place]. Potential future indications were reviewed with Prashanth and his this AM. Clinical presentation consistent with ATN in the setting of intravascular volume depletion, sepsis, hypotension, iodinated contrast, and recent chemotherapy. Presentation atypical for TLS. High degree of suspiction for [place] based nephrotoxicity or NILSA related to pembrolizumab. Kidneys were unobstructed on CT. UA/microscopy will be updated now. Serum UA requested. Continue balanced IVF to maintain a positive fluid balance. Document strict I/O's. Repeat metabolic profile this afternoon. (2) Sepsis: Blood cultures from admission: no growth. Remains on Zosyn. Management per hospitalist. (3) Nausea vomiting and diarrhea: (4) Hyponatremia: Mild. Hypovolemic with decreased EAV. Continue IVF to encourage positive fluid balance. Replace potassium. Document I/O's. Repeat metabolic profile this afternoon. (5) Hypokalemia: IV replacement provided this AM. Monitor and replace magnesium. (6) Hypocalcemia: 1 gram calcium gluconate now. Monitor calcium and phosphorus daily. (7) Adenocarcinoma, lung: Oncology following. History of Present Illness Reason for Consultation: intrinsic NILSA? Requesting Physician: Jaden Mclean MD Attending Physician: Jaden Mclean MD History of Present Illness Mr. Prashanth Moran is a 68 year-old male with hypertension, hyperlipidemia, a history of non-Hodgkin's lymphoma in 1994 s/p sternotomy with resection followed by chemotherapy and radiation treatments, who was recently diagnosed with stage IIB right upper lobe lung adenocarcinoma. He started neoadjuvant chemoimmunotherapy treatment with cisplatin, pemetrexed, and pembrolizumab on 11/27/2023. Prashanth presented to the ER at [facility] on November 30 with with nausea, vomiting, diarrhea, and abdominal pain. Symptoms were present for approximately 3 days with non-bloody and non-bilious emesis. Appetite has remained poor. He continues to struggle with persistent GI symptoms and generalized malaise. Prashanth is notably weak. Appetite is very poor and he has not been able to keep food down. ROS also notable for myalgias, cough, and headache. Serum creatinine on admission 1.17 mg/dL. Creatinine now 3.3 mg/dL. Urine output has been low. CT demonstrating normal appearing kidneys. Mild hypotension noted on admission. Tolerating IVF. Remains in a positive fluid balance. Febrile to 39.4 within the past 24 hours. CBC notable for progressive leukopenia and thrombocytopenia. Laboratory findings also notable for hyponatremia, hypokalemia, hypocalcemia, hypomagnesemia, and elevated bilirubin. Electrolyte abnormalities progressive since admission. LR infusing and electrolyte replacement provided. Treatment includes Zosyn. Prashanth also received a dose of CSF. UA from admission demonstrating +protein. Urine microscopy with a few RBC; no WBC or casts. He was seen and evaluated with his (Kayla) at the bedside. Allergies Allergy/AdvReac Type Severity Reaction Status Date / Time No Known Allergies Allergy Unknown Verified 12/01/23 23:02 Home Medications Medication Instructions Recorded Confirmed Type pantoprazole 40 mg tablet,delayed 40 mg PO DAILY 08/24/21 12/01/23 History release ezetimibe 10 mg tablet 10 mg PO DAILY 06/07/23 12/01/23 History dexamethasone 4 mg tablet 4 mg PO BID 12/01/23 12/01/23 History folic acid 1 mg tablet 1 mg PO .DAILY/UD 12/01/23 12/01/23 History olanzapine 2.5 mg tablet 2.5 mg PO HS 12/01/23 12/01/23 History olmesartan 5 mg tablet 10 mg PO DAILY 12/01/23 12/01/23 History ondansetron HCl 8 mg tablet 8 mg PO Q8H PRN Nausea And Vomiting 12/01/23 12/01/23 History prochlorperazine maleate 10 mg 10 mg PO Q6H PRN Nausea 12/01/23 12/01/23 History tablet Patient History Medical History (Updated 12/04/23 @ 09:04 by Mane Martinez DO) GERD (gastroesophageal reflux disease) Hyperlipidemia Hypertension CAP (community acquired pneumonia) Lumbar pain with radiation down right leg NHL (non-Hodgkin's lymphoma) (~1994) surgery + chemotherapy. 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: No Beliefs That Will Affect Care: None Current Living Situation: Spouse current occupational status: employed Other Information That Helps Us Care for You: No Feels Safe at Home: Yes Safety Concerns: Feels Safe At This Time Assistive Devices: None Review of Systems Review of Systems: All systems reviewed & are unremarkable except as noted in HPI & below Physical Exam Constitutional: well developed and + ill appearing; no acute distress Eyes: + anicteric sclerae; no corneal abnormal ity ENMT: external ear and nose normal, oropharynx normal Mouth: + dry oral mucous membranes Neck: normal visual inspection and trachea midline Respiratory: normal respiratory effort Auscultation: lungs clear to auscultation bilaterally Cardiovascular: Rate/Rhythm: regular rate Heart Sounds: normal S1 and normal S2 Extremities: no edema Gastrointestinal (Abdomen): Inspection/Auscultation: + abdomen distended and + hyperactive bowel sounds Percussion/Palpation: abdomen nontender and no guarding Musculoskeletal: Extremities: no cyanosis and no clubbing Skin: normal turgor; no lesions Neurologic: Motor/Sensory: no tremor and no asterixis Psychiatric: Orientation: alert and oriented x 3 Results & Data Vital Signs (Past 12 Hours) Vital Signs Temp Pulse Pulse Resp BP BP Pulse Ox 12/04/23 07:58 12/04/23 07:03 37.1 C 94 H 19 115/74 92 12/04/23 03:29 12/04/23 03:24 137/85 12/04/23 03:21 81 12/04/23 03:21 37.7 C H 84 20 159/77 H 97 12/04/23 01:53 100/60 12/04/23 01:24 37.7 C H 100 H 18 109/62 93 12/03/23 23:35 39.4 C H 105 H 16 119/71 94 12/03/23 22:40 38.2 C H 119 H 16 123/68 93 O2 Del Method 12/04/23 07:58 Room Air 12/04/23 07:03 Room Air 12/04/23 03:29 Room Air 12/04/23 03:24 12/04/23 03:21 12/04/23 03:21 Room Air 12/04/23 01:53 12/04/23 01:24 Room Air 12/03/23 23:35 Room Air 12/03/23 22:40 Room Air Laboratory Results Laboratory Results - last 24 hr 12/04/23 12/04/23 12/04/23 02:56 05:46 06:19 WBC 1.98 L RBC 4.52 L Hgb 13.8 L Hct 38.7 L MCV 85.6 MCH 30.5 MCHC 35.7 RDW Std Deviation 37.7 RDW Coeff of [place] 12.1 Plt Count 88 L MPV 12.2 Immature Gran % (Auto) 3.0 Neut % (Auto) 41.5 Lymph % (Auto) 41.9 [place] % (Auto) 11.6 Eos % (Auto) 1.0 Baso % (Auto) 1.0 Neut # (Auto) 0.82 L* Lymph # (Auto) 0.83 L [place] # (Auto) 0.23 Eos # (Auto) 0.02 Baso # (Auto) 0.02 Immature Gran # (Auto) 0.06 Toxic Granulation 1+ Dohle Bodies 1+ Sodium 129 L Potassium 2.9 L Chloride 94 L Carbon Dioxide 25 Anion Gap 10 BUN 53 H Creatinine 3.35 H D Est Cr Clr Drug Dosing 25.1 Est GFR ( Amer) 20.8 Est GFR (Non-Af Amer) 18.0 BUN/Creatinine Ratio 15.8 Glucose 120 H Osmolality 281 Calcium 7.3 L Ionized Calcium 0.97 L Phosphorus 4.0 Magnesium 1.5 L Total Bilirubin 1.7 H AST 28 ALT 45 Alkaline Phosphatase 48 Total Protein 4.5 L Albumin 2.5 L Globulin 2.0 L Albumin/Globulin Ratio 1.3 Random Cortisol 33.10 Ur Random Creatinine 67.4 Ur Random Sodium [address] Abdomen and Pelvis With Intravenous Contrast CONTRAST: Patient received OPTIRAY 320 94ML of IV contrast COMPARISON: 11/20/22 FINDINGS: Lung bases: Resolution of previously seen left lower lobe pneumonia. ABDOMEN: Liver: Probable hepatic steatosis. Gallbladder and bile ducts: Unremarkable. No calcified stones. No ductal dilation. Pancreas: Unremarkable. No mass. No ductal dilation. Spleen: Unremarkable. No splenomegaly. Adrenals: Unremarkable. No mass. Kidneys and ureters: Unremarkable. No solid mass. No hydronephrosis. Stomach and bowel: Colonic fluid levels suggesting diarrheal disease. No mucosal thickening. No bowel obstruction. PELVIS: Appendix: Normal appendix. Bladder: Unremarkable. No mass. Reproductive: Unremarkable as visualized. ABDOMEN and PELVIS: Intraperitoneal space: Unremarkable. No free air. No significant fluid collection. Bones/joints: No acute fracture. No dislocation. Soft tissues: Unremarkable. Vasculature: Atherosclerosis. Stable fusiform ectasia of the infrarenal aorta measuring 2.8 cm. Lymph nodes: Unremarkable. No enlarged lymph nodes. IMPRESSION: 1. Resolution of previously seen left lower lobe pneumonia. 2. Colonic fluid levels suggesting diarrheal disease. XR chest 1V portable AP COMPARISON: 10/26/2023 FINDINGS: Cardiac silhouette is mildly enlarged. Median sternotomy. No pneumothorax or overt pulmonary edema. Unchanged blunting of the lateral left costophrenic angle. Mild linear left basilar atelectasis versus scarring. No airspace consolidation typical for pneumonia. The bones appear grossly intact. IMPRESSION: No acute process. PG Care Time/CCT Total # of Minutes Spent Total Time Spent with Patient: Total time spent is greater than 50% in coordination of care (as documented) at patient's floor/unit and/or counseling patient: Coding Level of Care Code 72315 IN/OBS CONSULT LVL 5,80M Diagnoses NILSA (acute kidney injury) N17.9 Sepsis A41.9 Nausea vomiting and diarrhea R11.2; R19.7 Hyponatremia E87.1 Hypokalemia E87.6 Hypocalcemia E83.51 Adenocarcinoma, lung C34.90
[2023-12-04 09:15] LABS: Uric Acid 6.8 mg/dl (2.6-7.2)
--- NOTE | 2023-12-04 09:51 | Hospitalist Progress Note ---
Date of Service December 04, 2023 Assessment & Plan (1) GERD (gastroesophageal reflux disease): (2) Hyperlipidemia: (3) Hypertension: (4) Neutropenia: (5) Abnormal LFTs: (6) Sepsis: (7) NHL (non-Hodgkin's lymphoma): (8) NILSA (acute kidney injury): (9) Nausea and vomiting: (10) Diarrhea: Plan Mr. Moran is a 68 y/o male with PMHx of recently diagnosed lung cancer (first session of chemotherapy on 11/27/23) who was admitted due to significant N/V/D and associated abdominal pain that began soon after his first session of chemotherapy. Neutropenic Fever Hypotension Hypovolemia versus Sepsis? Nausea/Vomiting/Diarrhea - Patient with several days of significant N/V/D and resulting dehydration and hypovolemia - Patient given several LR boluses due to soft BPs with improvement, and this am has had adequate BP with appropriate MAP (>65) - Source not certain. Blood cultures from 12/01/23 negative for now. Repeat blood cultures still pending. - KUB done today unremarkable. - No fevers in the last 9 hours - Continue Zosyn, but consider adding Vancomycin or other antibiotic if he develops another fever. - Continue Compazine/PPI for nausea and helping and will add Reglan. Continue to hold Immodium - Continue with Tylenol or Morphine prn for pain control - Will replace K and Mg as both were low - Day 3/3 of GCSF with Filgastrim. WBC slightly increased this am (1.98), but may be higher since there likely is a dilutional component. ANC 0.82. - Continue monitoring VS and am labs - Hematology/Oncology following NILSA -Patient with worsening Creatinine now at 3.35 (was 2.16) despite fluid resuscitation - Further work up suggest more of an intrinsic cause for renal injury - Nephro consulted: Clinical presentation consistent with ATN in the setting of intravascular volume depletion, sepsis, hypotension, iodinated contrast, and recent chemotherapy. High degree of suspicion for [place] based nephrotoxicity or NILSA related to pembrolizumab. Strict Is and Os and repeat BMP in afternoon Replace electrolytes - Will continue more gentle IVF and monitor am labs Hyponatremia Thrombocytopenia - Suspect dilutional effect due to multiple boluses. - Will monitor am labs Lung Cancer - Heme/Onc following Due to poor tolerance of initial chemo regimen, planning on changing to Carboplatin/Pemetrexed/Nivolumab for subsequent cycles - Heme/Onc following Abnormal LFTs - Resolved: Total bili 2.9 --> 2.2 --> 1.7 AST 65 --> 61 --> 28 - AST and Alk Phos normal HTN - Home Olmesartan held while patient is hypotensive HLD - Zetia held for now GERD - Continue PPI IVF: LR @ 125 Diet: Clear liquid DVT ppx: Lovenox subQ (adjusted for creatinine) DNR/DNI Admission and Anticipated Discharge Date Admission Date: December 01, 2023 Supervising Physician Co-Signing Physician Notes Attending attestation Pt seen and examined in concert with Dr. David. In agreement with the documented findings as noted in the resident documentation with any exceptions or additions as noted here. Continued abdominal pain preceding vomiting/BM which are relieved by same. Some improvement on symptoms with compazine. Self reporting 2-3 watery BM per day, still no appetite. On examination, S1/S2 nl RRR no MCG. CTAB. Abd NT/ND BS+ve Hypotension with concern for systemic inflammatory response/sepsis w/ neutropenia fever - cultures pending - tolerating IV abx therapy with initial fevers but afebrile from ~11pm on 12.03.23. Tapered fluid bolus to 125cc/hr. Close monitoring for pressures. KUB without adverse process, avoiding contrast where able 2/2 NILSA NILSA with concern for ATN vs. chemotherapy adverse effect - nephrology consult - pending studies for evaluation of potential cause Else see resident documentation as noted. Subjective Mr. Moran is a 68 y/o male with PMHx of HTN, HLD, GERD, and recently diagnosed lung cancer who was admitted due to significant N/V and watery diarrhea associated with generalized abdominal pain that began soon after his first chemotherapy (11/27/23). He was also experiencing decreased appetite and low PO intake, as well as cough, headache, and myalgias. Today, he was evaluated at bedside and found to be aaox3, uncomfortable, and in NAD. He states he feels unwell, similar to how he felt yesterday. Still having abdominal pain similar to yesterday, and still having diarrhea with incontinence and vomiting. Nausea well controlled with current meds. No other symptoms. Review of Systems Review of Systems: As per HPI. Physical Exam Physical Exam: General: AAOx3, afebrile at the time of evaluation, uncomfortable, NAD HEENT: AT, NC, [place], EOM intact Throat: normal to visual inspection CV: RRR, no r/m/g Pulm: CTA bilaterally, normal respiratory effort GI: generalized tenderness to palpation, no guarding or rebound tenderness, decreased bowel sounds, soft, distended Extremity: no swelling in bilateral LE, no calf tenderness Results & Data Results & Data Vital Signs (Past 12 Hours) Vital Signs Temp Pulse Pulse Resp BP BP Pulse Ox 12/04/23 09:00 106 H 12/04/23 07:58 12/04/23 07:03 37.1 C 94 H 19 115/74 92 12/04/23 03:29 12/04/23 03:24 137/85 12/04/23 03:21 81 12/04/23 03:21 37.7 C H 84 20 159/77 H 97 12/04/23 01:53 100/60 12/04/23 01:24 37.7 C H 100 H 18 109/62 93 12/03/23 23:35 39.4 C H 105 H 16 119/71 94 12/03/23 22:40 38.2 C H 119 H 16 123/68 93 O2 Del Method 12/04/23 09:00 12/04/23 07:58 Room Air 12/04/23 07:03 Room Air 12/04/23 03:29 Room Air 12/04/23 03:24 12/04/23 03:21 12/04/23 03:21 Room Air 12/04/23 01:53 12/04/23 01:24 Room Air 12/03/23 23:35 Room Air 12/03/23 22:40 Room Air Resident Activity Tracking Resident Involvement: Resident Care Provided Care Provided: Adult Hospital Medicine (9) Nausea and vomiting Vomiting Intractability: non-intractable Vomiting type: unspecified Qualified Code(s): R11.2 - Nausea with vomiting, unspecified (10) Diarrhea Diarrhea type: unspecified type Qualified Code(s): R19.7 - Diarrhea, unspecified
[2023-12-04] MEDS ORDERED: STAT IV/IM STA (09:55)
[2023-12-04] MEDS: CALCIUM GLUCONATE 10% 1,000 MG in SODIUM CHLOR 0.9% MINI-B 50 ML IV ONE (10:14)
--- NOTE | 2023-12-04 11:53 | XRay Report ---
KUB CLINICAL HISTORY: Abdominal pain. COMPARISON STUDY: CT of the abdomen and pelvis December 01, 2023. FINDINGS: Median sternotomy wires are partially imaged. The bowel gas pattern is normal. No evidence for free air on supine exam. Right pelvic calcification represents a phlebolith. IMPRESSION: No evidence for a bowel obstruction. ACT 112: Negative or not required by law. Electronically signed by: Isaiah Deleon M.D. 12/04/2023 11:52 AM
[2023-12-04] MEDS ORDERED: LOPERAMIDE HCL 2 MG CAP PO PRN (14:59)
[2023-12-04] MEDS: METOCLOPRAMIDE HCL 10 MG TABLET PO SCH (16:51)
[2023-12-04 17:47] LABS: Albumin Level 2.5 gm/dl (3.4-5.0); BUN Creatinine Ratio 15.4 (10-20); Calcium 7.3 mg/dl (8.6-10.3); Creatinine Clr Calc Pharmacy 22.4 ml/min; Est GFR (African American) 18.1 ml/min; Est GFR (Non-African American) 15.6 ml/min; Phosphorus 3.9 mg/dl (2.5-4.9); Potassium 3.2 mmol/L (3.5-5.1)
[2023-12-05 02:25] LABS: Appearance Urine Clear (Clear); Bacteria Urine Automated None Seen (None Seen); Bilirubin Urine Negative (Negative); Blood Urine Trace (Negative); Cast Urine Automated 0-2 /lpf (0-2); Color Urine Yellow; Epithelial Cell Urine Auto 0-2 /hpf (0-2); Glucose Urine UA Trace (Negative); Ketones Urine 1+ (Negative); Leukocyte Esterase Urine Negative (Negative); Nitrite Urine Negative (Negative); Protein Urine 1+ (Negative); RBC Urine Automated 0-2 /hpf (0-2); Specific Gravity Urine 1.014 (1.000-1.030); Urobilinogen Urine Negative (Negative); WBC Urine Automated 0-5 /hpf (0-5); pH Urine 5.5 (4.5-7.5)
[2023-12-05] MEDS: METOCLOPRAMIDE HCL 10 MG TABLET PO PRN (02:35)
[2023-12-05 06:28] LABS: Albumin Globulin Ratio 1.1 (0.9-2); Albumin Level 2.4 gm/dl (3.4-5.0); BUN Creatinine Ratio 15.3 (10-20); Calcium 7.4 mg/dl (8.6-10.3); Creatinine Clr Calc Pharmacy 21.5 ml/min; Est GFR (African American) 17.3 ml/min; Est GFR (Non-African American) 14.9 ml/min; Globulin 2.1 gm/dl (2.5-4.0); Phosphorus 3.8 mg/dl (2.5-4.9); Potassium 3.4 mmol/L (3.5-5.1); Total Protein 4.5 gm/dl (6.0-8.3)
[2023-12-05 06:44] LABS: Hematocrit (blood only) 37.5 % (42.0-52.0); Hemoglobin 13.3 g/dl (14.0-18.0); Mean Corpuscular Hgb Conc 35.5 g/dL (32.0-36.0); Mean Corpuscular Volume 84.7 fL (80.0-100.0); Mean Platelet Volume 12.1 fL (9.4-12.4); Platelet Count 62 K/uL (130-400); RDW Standard Deviation 36.7 fL (36.4-46.3); Red Blood Count 4.43 M/uL (4.70-6.10); White Blood Count 2.24 K/ul (4.8-10.8)
[2023-12-05 07:16] LABS: Echinocytes 1+; Toxic Granulation 2+
[2023-12-05 07:17] LABS: Basophils # (auto) 0.03 K/uL (0.00-0.20); Basophils % (auto) 1.3 %; Eosinophils # (auto) 0.05 K/uL (0.00-0.50); Eosinophils % (auto) 2.2 %; Immature Granulocytes # (auto) 0.04 K/uL (0.01-0.20); Immature Granulocytes % (auto) 1.8 %; Lymphocytes # (auto) 0.96 K/uL (1.20-3.40); Lymphocytes % (auto) 42.9 %; Monocytes # (auto) 0.43 K/uL (0.11-0.59); Monocytes % (auto) 19.2 %; Neutrophils # (auto) 0.73 K/uL (1.40-6.50); Neutrophils % (auto) 32.6 %
--- NOTE | 2023-12-05 09:00 | Hematology/Oncology Prog Note ---
Date of Service December 05, 2023 Assessment & Plan (1) Adenocarcinoma, lung: (2) INLSA (acute kidney injury): Plan - Ordered palonosetron 0.25 mg IV x 1 dose today for persistent nausea. Continue with Compazine [id number] and Reglan as needed. -Continue IV antibiotics. Can discontinue if remains fever free for at least 48 hours and if ANC remains above 500 Admission and Anticipated Discharge Date Admission Date: December 01, 2023 Subjective Complains of nausea and abdominal bloating. Renal function is stable. Has not had fevers in about 24 hours. Results & Data Vital Signs (Past 12 Hours) Vital Signs Temp Pulse Pulse Resp BP Pulse Ox O2 Del Method 12/05/23 07:12 36.5 C 75 18 137/76 95 Room Air 12/05/23 04:08 71 12/05/23 03:25 36.9 C 66 18 149/64 H 95 Room Air 12/04/23 22:28 37.0 C 87 18 143/55 H 95 Room Air
[2023-12-05] MEDS: ENOXAPARIN INJ 30 MG/0.3 ML SYR SQ SCH (09:12)
[2023-12-05] MEDS: POTASSIUM CHLORIDE CRTAB 20 MEQ TABCR PO SCH (09:12)
--- NOTE | 2023-12-05 10:35 | Nephrology Progress Note ---
Date of Service December 05, 2023 Assessment & Plan (1) NILSA (acute kidney injury): Plan: Remains relatively oliguric. Tolerating IVF. Volume depleted. PO intake remains poor. There is no emergent indication for [employer]. Potential future indications were reviewed with Prashanth and his yesterday. Clinical presentation consistent with ATN in the setting of intravascular volume depletion, sepsis, hypotension, iodinated contrast, and recent chemotherapy. High degree of suspicion for [place] based nephrotoxicity or NILSA related to pembrolizumab. Kidneys were unobstructed on CT. UA bland with acellular microscopy. Continue balanced IVF to maintain a positive fluid balance. Document strict I/O's. Repeat metabolic profile tomorrow AM. (2) Sepsis: Plan: Blood cultures from admission: no growth. Remains on Zosyn. Management per hospitalist. (3) Nausea vomiting and diarrhea: (4) Hyponatremia: Plan: Chronic, mild to moderate. Hypovolemic with decreased EAV. Continue IVF to encourage positive fluid balance. Replace potassium. Document I/O's. (5) Hypokalemia: Plan: IV replacement provided this AM. Monitor and replace magnesium. (6) Hypocalcemia: Plan: Improved. (7) Adenocarcinoma, lung: Plan: Oncology following. Admission and Anticipated Discharge Date Admission Date: December 01, 2023 Subjective No acute events overnight. Prashanth was seen and evaluated with his and family at the bedside. Afebrile. Abdominal discomfort, nausea, and poor appetite persist. Bowels remain loose and frequent. Urine remains concentrated. Non- oliguric. Denies fluid retention or edema. Breathing comfortably. Review of Systems Review of Systems: All systems reviewed & are unremarkable except as noted in HPI & below Physical Exam Constitutional: well developed and + ill appearing; no acute distress Eyes: + anicteric sclerae Respiratory: normal respiratory effort Auscultation: lungs clear to auscultation bilaterally Cardiovascular: Rate/Rhythm: regular rate Heart Sounds: normal S1 and normal S2 Extremities: no edema Gastrointestinal (Abdomen): Inspection/Auscultation: + abdomen distended and + hyperactive bowel sounds Percussion/Palpation: abdomen nontender and no guarding Musculoskeletal: Extremities: no cyanosis and no clubbing Skin: normal turgor; no lesions Neurologic: Motor/Sensory: no tremor and no asterixis Psychiatric: Orientation: alert and oriented x 3 Results & Data Vital Signs (Past 12 Hours) Vital Signs Temp Pulse Pulse Resp BP Pulse Ox O2 Del Method 12/05/23 07:12 36.5 C 75 18 137/76 95 Room Air 12/05/23 04:08 71 12/05/23 03:25 36.9 C 66 18 149/64 H 95 Room Air Laboratory Results Laboratory Results - last 24 hr 12/04/23 12/04/23 12/05/23 10:40 17:10 05:42 WBC 2.24 L RBC 4.43 L Hgb 13.3 L Hct 37.5 L MCV 84.7 MCH 30.0 MCHC 35.5 RDW Std Deviation 36.7 RDW Coeff of [place] 12.0 Plt Count 62 L MPV 12.1 Immature Gran % (Auto) 1.8 Neut % (Auto) 32.6 Lymph % (Auto) 42.9 [place] % (Auto) 19.2 Eos % (Auto) 2.2 Baso % (Auto) 1.3 Neut # (Auto) 0.73 L* Lymph # (Auto) 0.96 L [place] # (Auto) 0.43 Eos # (Auto) 0.05 Baso # (Auto) 0.03 Immature Gran # (Auto) 0.04 Toxic Granulation 2+ Echinocytes 1+ Sodium 129 L 129 L Potassium 3.2 L 3.4 L Chloride 94 L 96 L Carbon Dioxide 23 23 Anion Gap 12 H 10 BUN 58 H 60 H Creatinine 3.76 H D 3.91 H Est Cr Clr Drug Dosing 22.4 21.5 Est GFR ( Amer) 18.1 17.3 Est GFR (Non-Af Amer) 15.6 14.9 BUN/Creatinine Ratio 15.4 15.3 Glucose 109 H 99 Calcium 7.3 L 7.4 L Phosphorus 3.9 3.8 Magnesium 2.0 Total Bilirubin 1.0 D AST 21 ALT 30 Alkaline Phosphatase 43 Total Protein 4.5 L Albumin 2.5 L 2.4 L Globulin 2.1 L Albumin/Globulin Ratio 1.1 Urine Color Urine Appearance Urine pH Ur Specific [place] Urine Protein Urine Glucose (UA) Urine Ketones Urine Blood Urine Nitrite Urine Bilirubin Urine Urobilinogen Ur Leukocyte Esterase Urine WBC (Auto) Urine RBC (Auto) U Hyaline Cast (Auto) U Epithel Cells (Auto) Urine Bacteria (Auto) Urine Osmolality Stool Occult Bld Scrn Positive A 12/05/23 Unknown WBC RBC Hgb Hct MCV MCH MCHC RDW Std Deviation RDW Coeff of [place] Plt Count MPV Immature Gran % (Auto) Neut % (Auto) Lymph % (Auto) [place] % (Auto) Eos % (Auto) Baso % (Auto) Neut # (Auto) Lymph # (Auto) [place] # (Auto) Eos # (Auto) Baso # (Auto) Immature Gran # (Auto) Toxic Granulation Echinocytes Sodium Potassium Chloride Carbon Dioxide Anion Gap BUN Creatinine Est Cr Clr Drug Dosing Est GFR ( Amer) Est GFR (Non-Af Amer) BUN/Creatinine Ratio Glucose Calcium Phosphorus Magnesium Total Bilirubin AST ALT Alkaline Phosphatase Total Protein Albumin Globulin Albumin/Globulin Ratio Urine Color Yellow Urine Appearance Clear Urine pH 5.5 Ur Specific [place] 1.014 Urine Protein 1+ H Urine Glucose (UA) Trace H Urine Ketones 1+ H Urine Blood Trace H Urine Nitrite Negative Urine Bilirubin Negative Urine Urobilinogen Negative Ur Leukocyte Esterase Negative Urine WBC (Auto) 0-5 Urine RBC (Auto) 0-2 U Hyaline Cast (Auto) 0-2 U Epithel Cells (Auto) 0-2 Urine Bacteria (Auto) None Seen Urine Osmolality 429 L Stool Occult Bld Scrn PG Care Time/CCT Total # of Minutes Spent Total Time Spent with Patient: Total time spent is greater than 50% in coordination of care (as documented) at patient's floor/unit and/or counseling patient: Coding Level of Care Code 19067 SUB INP/OBS CARE 3/50MIN Diagnoses NILSA (acute kidney injury) N17.9 Sepsis A41.9 Nausea vomiting and diarrhea R11.2; R19.7 Hyponatremia E87.1 Hypokalemia E87.6 Hypocalcemia E83.51 Adenocarcinoma, lung C34.90
[2023-12-05] MEDS: PALONOSETRON 0.25 MG in SYRINGE 0 ML IV ONE (10:40)
[2023-12-05] MEDS: FAMOTIDINE 10 MG TABLET PO SCH (11:47)
--- NOTE | 2023-12-05 12:10 | Hospitalist Progress Note ---
Date of Service December 05, 2023 Assessment & Plan (1) GERD (gastroesophageal reflux disease): (2) Hyperlipidemia: (3) Hypertension: (4) Neutropenia: (5) Abnormal LFTs: (6) Sepsis: (7) NHL (non-Hodgkin's lymphoma): (8) NILSA (acute kidney injury): Plan Mr. Moran is a 68 y/o male with PMHx of recently diagnosed lung cancer (first session of chemotherapy on 11/27/23) who was admitted due to significant N/V/D and associated abdominal pain that began soon after his first session of chemotherapy. Neutropenic Fever Hypotension (resolved) Hypovolemia versus Sepsis? Nausea/Vomiting/Diarrhea - Patient with several days of significant N/V/D and resulting dehydration and hypovolemia - Patient given several LR boluses from the 12/03/23-12/04/23 due to soft BPs with improvement. Maintenance fluids were decreased back to a rate of 125 mL/hr and BP have stayed between 120s-150s systolic with adequate MAPs - Blood cultures from 12/01/23 negative for now. Repeat blood cultures also negative. - KUB unremarkable. - No fevers in > 24 hours and clinically patient improving although still experiencing bothersome symptoms. - Continue Zosyn until patient meets 48 without fevers. May consider changing to Levofloxacin PO afterwards. - Continue Compazine/PPI + Reglan. Continue to hold Immodium - Will add Pepcid q48h, Carafate bid prn; Dr. Nivia way Aloxgriselda for better control of nausea, which was added as well - Continue with Tylenol or Dilaudid prn for pain control - Mg improved to 2.0 and K increased to 3.4 after 6 KCl IV yesterday plus 4 KCl IV last night - Will repeat BMP in the afternoon and if potassium still low will replace - Increased WBC in am labs (2.24) and ANC of 0.73 - Continue monitoring VS and am labs - Hematology/Oncology following NILSA // ATN -Patient with worsening Creatinine now at 3.91 - Further work up suggest more of an intrinsic cause for renal injury - Nephro consulted: Possible cause was intravascular volume depletion, sepsis, hypotension, iodinated contrast, and recent chemotherapy. High degree of suspicion for [place] based nephrotoxicity or NILSA related to pembrolizumab. Strict Is and Os Replace electrolytes as needed - Will continue IVF and monitor am labs Thrombocytopenia - Platelets decreased from 80s to 60s from yest to today despite decreasing fluid rate and no more boluses given - Still suspicious that this is persistent dilutional effect given lack of evidence for thrombus - Will reassess am labs and evaluate need for further evaluation Hyponatremia - Suspect dilutional effect due to multiple boluses. - Will monitor am labs Lung Cancer - Heme/Onc following Due to poor tolerance of initial chemo regimen, planning on changing to Carboplatin/Pemetrexed/Nivolumab for subsequent cycles Abnormal LFTs - Resolved: Total bili 2.9 --> 2.2 --> 1.7 AST 65 --> 61 --> 28 - AST and Alk Phos normal HTN - Home Olmesartan held until BP improves HLD - Continue Zetia GERD - Continue PPI IVF: LR @ 125 Diet: Clear liquid DVT ppx: Lovenox subQ (adjusted for creatinine) DNR/DNI Admission and Anticipated Discharge Date Admission Date: December 01, 2023 Supervising Physician Co-Signing Physician Notes Attending attestation Pt seen and examined in concert with Dr. David. In agreement with the documented findings as noted in the resident documentation with any exceptions or additions as noted here. Reports continued abdominal pain with reduced nausea/vomiting and stable/impro imelda bowel movements. Tolerating barbosa popsicle today. On examination, S1/S2 nl RRR no MCG. CTAB. Abd NT/ND BS+ve Hypotension with concern for systemic inflammatory response w/ neutropenia fever - cultures pending - tolerating IV abx therapy with initial fevers but afebrile from ~11pm on 12.03.23. Continue IVF and taper when toleraring POI. Monitor creatinine. NILSA with concern for ATN vs. chemotherapy adverse effect - nephrology consult - pending studies for evaluation of potential cause Nausea, likely adverse effect from cisplatin - antiemetic therapy per oncology recommendation Else see resident documentation as noted. Subjective Mr. Moran is a 68 y/o male with PMHx of HTN, HLD, GERD, and recently diagnosed lung cancer who was admitted due to significant N/V and watery diarrhea associated with generalized abdominal pain that began soon after his first chemotherapy (11/27/23). He was also experiencing decreased appetite and low PO intake, as well as cough, headache, and myalgias. Today, he was evaluated at bedside and found to be aaox3, uncomfortable, and in NAD. He reports no improvement compared to yesterday, but has been able to keep down a portion of a popsicle without vomiting. Also refers wanting to eat mashed potatoes. Still having abdominal pain and N/V, but no fevers, chills, chest pain, or SOB. No other symptoms. Review of Systems Review of Systems: As per HPI. Physical Exam Physical Exam: General: AAOx3, afebrile, uncomfortable, NAD HEENT: AT, NC, [place], EOM intact Throat: normal to visual inspection CV: RRR, no r/m/g Pulm: CTA bilaterally, normal respiratory effort GI: generalized tenderness to palpation, no guarding or rebound tenderness, distended Extremity: no swelling in bilateral LE, no calf tenderness Results & Data Results & Data Vital Signs (Past 12 Hours) Vital Signs Temp Pulse Pulse Resp BP Pulse Ox O2 Del Method 12/05/23 11:41 36.7 C 86 18 156/79 H 97 Room Air 12/05/23 07:12 36.5 C 75 18 137/76 95 Room Air 12/05/23 04:08 71 12/05/23 03:25 36.9 C 66 18 149/64 H 95 Room Air Resident Activity Tracking Resident Involvement: Resident Care Provided Care Provided: Adult Hospital Medicine
[2023-12-05 17:17] LABS: BUN Creatinine Ratio 15.3 (10-20); Calcium 7.4 mg/dl (8.6-10.3); Creatinine Clr Calc Pharmacy 21.4 ml/min; Est GFR (African American) 17.2 ml/min; Est GFR (Non-African American) 14.8 ml/min; Potassium 3.2 mmol/L (3.5-5.1)
[2023-12-05] MEDS: SUCRALFATE 1 GM/10 ML UDC PO PRN (17:21)
[2023-12-05] MEDS: POTASSIUM CHLORIDE / WTR 10 MEQ/100 ML PLCT IV SCH (17:48)
[2023-12-05] MEDS: MELATONIN 3 MG TAB PO ONE (23:01)
[2023-12-06] MEDS: hydrOXYzine HCl 25 MG TAB PO ONE (02:06)
[2023-12-06 06:26] LABS: Albumin Globulin Ratio 1.1 (0.9-2); Albumin Level 2.3 gm/dl (3.4-5.0); BUN Creatinine Ratio 14.9 (10-20); Bilirubin,Total 0.9 mg/dl (0.2-1.0); Calcium 7.6 mg/dl (8.6-10.3); Creatinine Clr Calc Pharmacy 21.2 ml/min; Est GFR (Non-African American) 14.7 ml/min; Globulin 2.1 gm/dl (2.5-4.0); Magnesium 1.8 mg/dl (1.7-2.4); Phosphorus 3.3 mg/dl (2.5-4.9); Potassium 3.3 mmol/L (3.5-5.1); Total Protein 4.4 gm/dl (6.0-8.3)
[2023-12-06 06:40] LABS: Hematocrit (blood only) 36.8 % (42.0-52.0); Hemoglobin 12.9 g/dl (14.0-18.0); Mean Corpuscular Hgb Conc 35.1 g/dL (32.0-36.0); Mean Corpuscular Volume 85.6 fL (80.0-100.0); Mean Platelet Volume 12.9 fL (9.4-12.4); Platelet Count 57 K/uL (130-400); RDW Coefficient of Variation 12.1 % (11.5-14.5); RDW Standard Deviation 37.7 fL (36.4-46.3); White Blood Count 2.03 K/ul (4.8-10.8)
[2023-12-06 08:29] LABS: Toxic Granulation 2+
[2023-12-06 08:40] LABS: Basophils # (auto) 0.01 K/uL (0.00-0.20); Basophils % (auto) 0.5 %; Eosinophils # (auto) 0.04 K/uL (0.00-0.50); Immature Granulocytes # (auto) 0.01 K/uL (0.01-0.20); Immature Granulocytes % (auto) 0.5 %; Lymphocytes % (auto) 39.4 %; Monocytes # (auto) 0.42 K/uL (0.11-0.59); Monocytes % (auto) 20.7 %; Neutrophils # (auto) 0.75 K/uL (1.40-6.50); Neutrophils % (auto) 36.9 %
--- NOTE | 2023-12-06 11:22 | Hospitalist Progress Note ---
Date of Service December 06, 2023 Assessment & Plan (1) GERD (gastroesophageal reflux disease): (2) Hyperlipidemia: (3) Hypertension: (4) Neutropenia: (5) Abnormal LFTs: (6) Sepsis: (7) NHL (non-Hodgkin's lymphoma): (8) NILSA (acute kidney injury): Plan Mr. Moran is a 68 y/o male with PMHx of recently diagnosed lung cancer (first session of chemotherapy on 11/27/23) who was admitted due to significant N/V/D and associated abdominal pain that began soon after his first session of chemotherapy. Neutropenic Fever (Resolved) Hypotension (Resolved) Hypovolemia versus Sepsis? Nausea/Vomiting/Diarrhea (Improving) - Patient with several days of significant N/V/D and resulting dehydration and hypovolemia - Stool studies negative. C.diff negative. - Blood cultures from 12/01/23 negative for now. Repeat blood cultures also negative. - KUB unremarkable (12/04/23) - No fevers in > 48 hours and clinically patient improving although still experiencing bothersome abdominal pain and bloating. - VSS and BP improved - Since no fevers in >48 hours, will stop IV Zosyn. No source found so will hold off on oral abx. - Continue Compazine/PPI + Reglan Will add Pepcid q48h, Carafate bid prn - Continue with Tylenol tid or Dilaudid prn for pain control - Will add Simethicone for bloating - K+ still low at 3.3. Will resume KCl PO bid - WBC of 2.03 (ANC of 0.75) - Monitor am labs - Continue monitoring VS and am labs - Hematology/Oncology following NILSA // ATN -Patient with worsening Creatinine now at 3.96, which is slightly increased from yesterday (3.93) but seems to be stabilizing - Further work up suggest more of an intrinsic cause for renal injury - Nephro consulted: Possible cause was intravascular volume depletion, sepsis, hypotension, iodinated contrast, and recent chemotherapy. High degree of suspicion for [place] based nephrotoxicity or NILSA related to pembrolizumab. Strict Is and Os Replace electrolytes as needed - Will continue IVF and monitor am labs Thrombocytopenia - Platelets decreased to 50s today - Still suspicious that this is persistent dilutional effect given lack of evidence for thrombus - Will reassess am labs after slowing IVF and evaluate need for further evaluation Hyponatremia - Improved (Na today of 132) - Suspect dilutional effect due to multiple boluses. - Will monitor am labs Lung Cancer - Heme/Onc following Due to poor tolerance of initial chemo regimen, planning on changing to Carboplatin/Pemetrexed/Nivolumab for subsequent cycles HTN - Home Olmesartan held until BP improves HLD - Continue Zetia GERD - Continue PPI IVF: LR @ 80 Diet: Low fiber DVT ppx: Lovenox subQ (adjusted for creatinine) DNR/DNI Admission and Anticipated Discharge Date Admission Date: December 01, 2023 Supervising Physician Co-Signing Physician Notes Attending attestation Pt seen and examined in concert with Dr. David. In agreement with the documented findings as noted in the resident documentation with any exceptions or additions as noted here. Significant improvement in nausea/vomiting with tolerance of full diet (albeit small portion) today. Ongoing diffuse abdominal fullness/discomfort. On examination, S1/S2 nl RRR no MCG. CTAB. Abd distended with discomfort to palpation BS+ve Hypotension with concern for systemic inflammatory response w/ neutropenia fever - cultures pending - tolerating IV abx therapy with initial fevers but afebrile from ~11pm on 12.03.23. Following d/w hematology/oncology, can discontinue abx as ANC > 500 and BCx negative x 48 hours without fever. Continue IVF and taper likely tomorrow if tolerance of PO intake continues. NILSA with concern for ATN vs. chemotherapy adverse effect - nephrology consult - pending studies for evaluation of potential cause - stable creatinine at present Nausea, likely adverse effect from cisplatin - improvement on long-acting IV antiemetic therapy and ongoing compazine. Else see resident documentation as noted. Subjective Mr. Moran is a 68 y/o male with PMHx of HTN, HLD, GERD, and recently diagnosed lung cancer who was admitted due to significant N/V and watery diarrhea associated with generalized abdominal pain that began soon after his first chemotherapy (11/27/23). He was also experiencing decreased appetite and low PO intake, as well as cough, headache, and myalgias. Today, he was evaluated at bedside and found to be aaox3, afebrile, and in NAD. Patient states that he still has abdominal pain and bloating, but his bowel movements have decreased and he had only had 1-2 overnight. His nausea has also improved and he was able to eat half of some chicken with mashed potatoes and drink part of a carton of chocolate milk. He denies feeling fevers, chills, chest pain, SOB, or any other symptom. Review of Systems Review of Systems: As per HPI. Physical Exam Physical Exam: General: AAOx3, afebrile, uncomfortable, NAD HEENT: AT, NC, [place], EOM intact Throat: normal to visual inspection CV: RRR, no r/m/g Pulm: CTA bilaterally, normal respiratory effort GI: generalized tenderness to palpation, no guarding or rebound tenderness, distended Extremity: no swelling in bilateral LE, no calf tenderness Results & Data Results & Data Vital Signs (Past 12 Hours) Vital Signs Temp Pulse Pulse Resp BP Pulse Ox O2 Del Method 12/06/23 10:55 37.1 C 90 18 141/80 H 97 Room Air 12/06/23 09:00 89 12/06/23 07:43 36.7 C 94 H 19 164/86 H 95 Room Air 12/06/23 03:41 36.9 C 89 20 163/86 H 98 Room Air Resident Activity Tracking Resident Involvement: Resident Care Provided Care Provided: Adult Hospital Medicine
--- NOTE | 2023-12-06 12:53 | Nephrology Progress Note ---
Date of Service December 06, 2023 Assessment & Plan (1) NILSA (acute kidney injury): Plan: UOP improved. Tolerating IVF. PO intake remains poor. Continue Plasm-lyte infusion to maintain a positive fluid balance. Clinical presentation suggestive of ATN related to intravascular volume depletion from dehydration, hypotension, and complicated by chemotherapy and IV contrast. High degree of suspicion for [place] based nephrotoxicity. Cannot exclude [place] associated with pembrolizumab but this is less likely. No indication for steroids or biopsy at this time. Continue to monitor for renal recovery. Anticipate kidney recovery will lag behind recovery of WBC. There is no emergent indication for [employer]. Potential future indications were reviewed with Prashanth and his . Kidneys were unobstructed on CT. UA bland with acellular microscopy. Document strict I/O's. Repeat metabolic profile tomorrow AM. (2) Nausea vomiting and diarrhea: Plan: Cultures negative. Improving. Antibiotics discontinued this AM. (3) Hyponatremia: Plan: Chronic, mild to moderate. Hypovolemic with decreased EAV. Continue IVF to encourage positive fluid balance. Replace potassium. Document I/O's. (4) Hypokalemia: Plan: IV replacement provided this AM. Monitor and replace magnesium. (5) Adenocarcinoma, lung: Plan: Oncology following. Admission and Anticipated Discharge Date Admission Date: December 01, 2023 Subjective No acute events overnight. Prashanth was seen and evaluated with his at the bedside. He reports difficulty sleeping and feeling tired this AM. Abdominal bloating and discomfort persist. Appetite remains poor. Improved urine output. Denies fluid retention or edema. No shortness of breath. No fevers or chills. Review of Systems Review of Systems: All systems reviewed & are unremarkable except as noted in HPI & below Physical Exam Constitutional: well developed and + ill appearing; no acute distress Eyes: + anicteric sclerae; no corneal abnormal ity ENMT: external ear and nose normal, oropharynx normal Neck: normal visual inspection and trachea midline Respiratory: normal respiratory effort Auscultation: lungs clear to auscultation bilaterally Cardiovascular: Rate/Rhythm: regular rate Heart Sounds: normal S1 and normal S2 Extremities: + edema (trace generalized) Musculoskeletal: Extremities: no cyanosis and no clubbing Skin: normal turgor; no lesions Neurologic: Motor/Sensory: no tremor and no asterixis Psychiatric: Orientation: alert and oriented x 3 Results & Data Vital Signs (Past 12 Hours) Vital Signs Temp Pulse Pulse Resp BP Pulse Ox O2 Del Method 12/06/23 10:55 37.1 C 90 18 141/80 H 97 Room Air 12/06/23 09:00 89 12/06/23 07:43 36.7 C 94 H 19 164/86 H 95 Room Air 12/06/23 03:41 36.9 C 89 20 163/86 H 98 Room Air Laboratory Results Laboratory Results - last 24 hr 12/05/23 12/06/23 16:26 05:31 WBC 2.03 L RBC 4.30 L Hgb 12.9 L Hct 36.8 L MCV 85.6 MCH 30.0 MCHC 35.1 RDW Std Deviation 37.7 RDW Coeff of [place] 12.1 Plt Count 57 L MPV 12.9 H Immature Gran % (Auto) 0.5 Neut % (Auto) 36.9 Lymph % (Auto) 39.4 [place] % (Auto) 20.7 Eos % (Auto) 2.0 Baso % (Auto) 0.5 Neut # (Auto) 0.75 L* Lymph # (Auto) 0.80 L [place] # (Auto) 0.42 Eos # (Auto) 0.04 Baso # (Auto) 0.01 Immature Gran # (Auto) 0.01 Toxic Granulation 2+ Sodium 131 L 132 L Potassium 3.2 L 3.3 L Chloride 96 L 99 Carbon Dioxide 25 23 Anion Gap 10 10 BUN 60 H 59 H Creatinine 3.93 H 3.96 H Est Cr Clr Drug Dosing 21.4 21.2 Est GFR ( Amer) 17.2 17.0 Est GFR (Non-Af Amer) 14.8 14.7 BUN/Creatinine Ratio 15.3 14.9 Glucose 93 89 Calcium 7.4 L 7.6 L Phosphorus 3.3 Magnesium 1.8 Total Bilirubin 0.9 AST 19 ALT 25 Alkaline Phosphatase 55 Total Protein 4.4 L Albumin 2.3 L Globulin 2.1 L Albumin/Globulin Ratio 1.1 PG Care Time/CCT Total # of Minutes Spent Total Time Spent with Patient: Total time spent is greater than 50% in coordination of care (as documented) at patient's floor/unit and/or counseling patient: Coding Level of Care Code 82122 SUB INP/OBS CARE 3/50MIN Diagnoses NILSA (acute kidney injury) N17.9 Nausea vomiting and diarrhea R11.2; R19.7 Hyponatremia E87.1 Hypokalemia E87.6 Adenocarcinoma, lung C34.90
[2023-12-06] MEDS: ACETAMINOPHEN 500 MG TAB PO PRN (16:14)
[2023-12-06] MEDS: SIMETHICONE 80 MG CHEW PO PRN (17:44)
[2023-12-06] MEDS: ACETAMINOPHEN 500 MG TAB PO SCH (21:26)
[2023-12-07 07:34] LABS: Hematocrit (blood only) 38.5 % (42.0-52.0); Hemoglobin 13.6 g/dl (14.0-18.0); Mean Corpuscular Hemoglobin 30.3 pg (25.0-34.0); Mean Corpuscular Hgb Conc 35.3 g/dL (32.0-36.0); Mean Corpuscular Volume 85.7 fL (80.0-100.0); Mean Platelet Volume 12.2 fL (9.4-12.4); Platelet Count 72 K/uL (130-400); RDW Coefficient of Variation 12.2 % (11.5-14.5); RDW Standard Deviation 38.5 fL (36.4-46.3); Red Blood Count 4.49 M/uL (4.70-6.10); White Blood Count 1.59 K/ul (4.8-10.8)
[2023-12-07 07:54] LABS: Albumin Globulin Ratio 1.1 (0.9-2); Albumin Level 2.4 gm/dl (3.4-5.0); BUN Creatinine Ratio 15.5 (10-20); Calcium 7.6 mg/dl (8.6-10.3); Creatinine Clr Calc Pharmacy 22.4 ml/min; Est GFR (African American) 18.2 ml/min; Est GFR (Non-African American) 15.7 ml/min; Globulin 2.2 gm/dl (2.5-4.0); Magnesium 1.8 mg/dl (1.7-2.4); Phosphorus 3.4 mg/dl (2.5-4.9); Potassium 3.4 mmol/L (3.5-5.1); Total Protein 4.6 gm/dl (6.0-8.3)
[2023-12-07 09:30] LABS: Dohle Bodies 1+; Tear Drop Cells 1+; Toxic Granulation 2+
[2023-12-07 09:31] LABS: Basophils # (auto) 0.01 K/uL (0.00-0.20); Basophils % (auto) 0.6 %; Eosinophils # (auto) 0.03 K/uL (0.00-0.50); Eosinophils % (auto) 1.9 %; Immature Granulocytes # (auto) 0.01 K/uL (0.01-0.20); Immature Granulocytes % (auto) 0.6 %; Lymphocytes # (auto) 0.83 K/uL (1.20-3.40); Lymphocytes % (auto) 52.2 %; Monocytes # (auto) 0.22 K/uL (0.11-0.59); Monocytes % (auto) 13.8 %; Neutrophils # (auto) 0.49 K/uL (1.40-6.50); Neutrophils % (auto) 30.9 %
--- NOTE | 2023-12-07 10:30 | Nephrology Progress Note ---
Date of Service December 07, 2023 Assessment & Plan (1) NILSA (acute kidney injury): Plan: Non-oliguric. Volume status acceptable. Improved PO intake. IVF stopped. Encourage nutrition. Goal is to encouraged even to slightly positive fluid balance. Clinical presentation suggestive of ATN related to intravascular volume depletion from dehydration, hypotension, and complicated by chemotherapy, and IV contrast. High degree of suspicion for [place] based nephrotoxicity. Cannot exclude interstitial nephritis associated with pembrolizumab but this is less likely. No indication for steroids or biopsy at this time. Continue to monitor for renal recovery. Typically kidney recovery lags behind WBC recovery. There is no emergent indication for [employer]. Potential future indications were reviewed with Prashanth and his . Kidneys were unobstructed on CT. UA bland with acellular microscopy. Document strict I/O's. Repeat metabolic profile tomorrow AM. (2) Nausea vomiting and diarrhea: Plan: Improving. Suspect chemotherapy related. (3) Hyponatremia: Plan: Chronic, mild to moderate. Continue oral potassium replacement. Encourage nutrition. (4) Hypokalemia: Plan: Oral KCl is being provided. (5) Adenocarcinoma, lung: Admission and Anticipated Discharge Date Admission Date: December 01, 2023 Subjective No acute events overnight. Prashanth reports significant difficulty sleeping. He expressed frustration with being in the hospital. A couple loose bowel movements but diarrhea has resolved. Abdominal bloating and discomfort persists. Describes some persistent severe abdominal cramping. Appetite improving. Tolerating PO fluids. Denies significant fluid retention or edema. Breathing comfortably. No fevers or chills. No chest pains or palpitations. Review of Systems Review of Systems: All systems reviewed & are unremarkable except as noted in HPI & below Physical Exam Constitutional: well developed; no acute distress Eyes: + anicteric sclerae; no corneal abnormal ity ENMT: external ear and nose normal, oropharynx normal Mouth: oral mucous membranes not dry Neck: normal visual inspection and trachea midline Respiratory: normal respiratory effort Auscultation: lungs clear to auscultation bilaterally Cardiovascular: Rate/Rhythm: regular rate Heart Sounds: normal S1 and normal S2 Extremities: + edema (+1 BL LE) Gastrointestinal (Abdomen): Inspection/Auscultation: + abdomen distended Percussion/Palpation: no guarding Musculoskeletal: Extremities: no cyanosis and no clubbing Skin: normal turgor; no lesions Neurologic: Motor/Sensory: no tremor and no asterixis Psychiatric: Orientation: alert and oriented x 3 Results & Data Vital Signs (Past 12 Hours) Vital Signs Temp Pulse Resp BP Pulse Ox O2 Del Method 12/07/23 07:11 37.3 C 101 H 18 143/76 H 96 Room Air 12/07/23 03:14 36.9 C 97 H 20 148/81 H 95 Room Air Laboratory Results Laboratory Results - last 24 hr 12/07/23 06:52 WBC 1.59 L RBC 4.49 L Hgb 13.6 L Hct 38.5 L MCV 85.7 MCH 30.3 MCHC 35.3 RDW Std Deviation 38.5 RDW Coeff of [place]iel 12.2 Plt Count 72 L MPV 12.2 Immature Gran % (Auto) 0.6 Neut % (Auto) 30.9 Lymph % (Auto) 52.2 [place] % (Auto) 13.8 Eos % (Auto) 1.9 Baso % (Auto) 0.6 Neut # (Auto) 0.49 L* Lymph # (Auto) 0.83 L [place] # (Auto) 0.22 Eos # (Auto) 0.03 Baso # (Auto) 0.01 Immature Gran # (Auto) 0.01 Toxic Granulation 2+ Dohle Bodies 1+ Tear Drop Cells 1+ Sodium 134 L Potassium 3.4 L Chloride 103 Carbon Dioxide 20 L Anion Gap 11 BUN 58 H Creatinine 3.75 H Est Cr Clr Drug Dosing 22.4 Est GFR ( Amer) 18.2 Est GFR (Non-Af Amer) 15.7 BUN/Creatinine Ratio 15.5 Glucose 89 Calcium 7.6 L Phosphorus 3.4 Magnesium 1.8 Total Bilirubin 1.0 AST 21 ALT 23 Alkaline Phosphatase 76 Total Protein 4.6 L Albumin 2.4 L Globulin 2.2 L Albumin/Globulin Ratio 1.1 PG Care Time/CCT Total # of Minutes Spent Total Time Spent with Patient: Total time spent is greater than 50% in coordination of care (as documented) at patient's floor/unit and/or counseling patient: Coding Level of Care Code 25615 SUB INP/OBS CARE 3/50MIN Diagnoses NILSA (acute kidney injury) N17.9 Nausea vomiting and diarrhea R11.2; R19.7 Hyponatremia E87.1 Hypokalemia E87.6 Adenocarcinoma, lung C34.90
--- NOTE | 2023-12-07 13:21 | Hospitalist Progress Note ---
Date of Service December 07, 2023 Assessment & Plan (1) GERD (gastroesophageal reflux disease): (2) Hyperlipidemia: (3) Hypertension: (4) Neutropenia: (5) Abnormal LFTs: (6) Sepsis: (7) NHL (non-Hodgkin's lymphoma): (8) NILSA (acute kidney injury): Plan Mr. Moran is a 68 y/o male with PMHx of recently diagnosed lung cancer (first session of chemotherapy on 11/27/23) who was admitted due to significant N/V/D and associated abdominal pain that began soon after his first session of chemotherapy. Neutropenic Fever (Resolved) Hypotension (Resolved) Nausea/Vomiting/Diarrhea (Improving) - Patient with several days of significant N/V/D and resulting dehydration and hypovolemia - Stool studies negative. C.diff negative. - Blood cultures from 12/01/23 negative for now. Repeat blood cultures also negative. - KUB unremarkable (12/04/23) - VSS and BP improved. No fevers. - Patient s/p 48 hours of Zosyn. - Continue Compazine/PPI + Reglan + Pepcid + Carafate + Simethicone. Will add Bentyl for before meals to limit abdominal pain. - Continue with Tylenol tid or Dilaudid prn for pain control - If pain worsens, may consider CTAP with oral contrast only given renal function. - Mild hypokalemia (3.4). Continue KCl PO bid - Monitor am labs - Hematology/Oncology following NILSA // ATN - Creatinine improving today (3.96 --> 3.75) - IVF stopped - Nephro consulted: Possible cause was intravascular volume depletion, hypotension, iodinated contrast, and recent chemotherapy. Strict Is and Os Replace electrolytes as needed - Monitor am labs Thrombocytopenia - Platelets now improving to 72 today - Monitor am labs Hyponatremia - Improved (Na today of 134) - Suspect dilutional effect due to IVF - Will monitor am labs Lung Cancer - Heme/Onc following Due to poor tolerance of initial chemo regimen, planning on changing to Carboplatin/Pemetrexed/Nivolumab for subsequent cycles - WBC of 1.59 (ANC of 0.49) HTN - Home Olmesartan held HLD - Continue Zetia GERD - Continue PPI IVF: none Diet: Low fiber DVT ppx: Lovenox subQ (adjusted for creatinine) DNR/DNI Admission and Anticipated Discharge Date Admission Date: December 01, 2023 Supervising Physician Co-Signing Physician Notes ATTESTATION I also saw the patient and confirmed bae portions of the history and exam. I agree with the impression and plan in the resident documentation, and as summarized below. Upon our exam just after noon, the patient is semi-reclined in the bedside chair. He has noted continual episodic abdominal cramping, although at the time of visit, was actually doing better. His was at bedside. EXAM 166/84, 97, 16, 36.7, 94% on room air Alert and oriented. No obvious distress. Heart regular rate and rhythm Respirations nonlabored Abdomen slightly distended, active bowel sounds noted. No significant tenderness, rebound or guarding with palpation of the abdomen. DATA Labs WBC 1.59, hemoglobin 13.6 Sodium 134, potassium 3.4, BUN 58, creatinine 3.75 Micro Blood cultures collected 12/03/2023 showed no growth at 48 hours. IMPRESSION & PLAN Nausea vomiting, resolved Abdominal cramping, intermittent Acute kidney injury Antineoplastic chemotherapy induced pancytopenia Adenocarcinoma of the lung With improved p.o. intake, IV fluids discontinued; check BMP in a.m.; appreciate nephrology consultation Nausea and vomiting have improved, but still with intermittent abdominal cramping Exam this afternoon is reassuring (no focal tenderness, no rebound or guarding, appropriate to slightly hyperactive bowel sounds) Encouraged use of pain medication, especially to enable better sleep at night Trial of dicyclomine before every meal If abdominal pain worsens, consider reimaging (states he would have to be without IV contrast due to kidneys; patient is unsure if he will be able to tolerate p.o. contrast) Will discuss with oncology indications for Neupogen (he had doses on 3 consecutive days previous this admission) See resident documentation for additional Subjective Mr. Moran is a 68 y/o male with PMHx of HTN, HLD, GERD, and recently diagnosed lung cancer who was admitted due to significant N/V and watery diarrhea associated with generalized abdominal pain that began soon after his first chemotherapy (11/27/23). He was also experiencing decreased appetite and low PO intake, as well as cough, headache, and myalgias. Today, he was evaluated at bedside and found to be aaox3, afebrile, and in NAD. Patient states that he still has abdominal pain and bloating that is worse after eating and is generalized but more present in his lower quadrants. His bowel movements have decreased and he had only had 1-2 bm that are still soft-watery. His nausea is still present but improved and hasn't vomited in 2 days. He ate half of his pancakes, eggs, and fruit this morning without subsequent vomiting. Has been able to ambulate some around his room. Referring some back pain that makes sleeping on the bed uncomfortable. Denies feeling feverish, chills, chest pain, SOB, or any other symptom. Review of Systems Review of Systems: As per HPI. Physical Exam Physical Exam: General: AAOx3, afebrile, uncomfortable, NAD HEENT: AT, NC, [place], EOM intact Throat: normal to visual inspection CV: RRR, no r/m/g Pulm: CTA bilaterally, normal respiratory effort GI: generalized tenderness to palpation, no guarding or rebound tenderness, distended Extremity: no swelling in bilateral LE, no calf tenderness Results & Data Results & Data Vital Signs (Past 12 Hours) Vital Signs Temp Pulse Pulse Resp BP Pulse Ox O2 Del Method 12/07/23 12:34 97 H 12/07/23 11:37 36.7 C 97 H 16 166/84 H 94 Room Air 12/07/23 07:11 37.3 C 101 H 18 143/76 H 96 Room Air 12/07/23 03:14 36.9 C 97 H 20 148/81 H 95 Room Air
[2023-12-07] MEDS: DICYCLOMINE HCL 20 MG TAB PO SCH (16:10)
[2023-12-07] MEDS: FILGRASTIM 480 MCG/1.6 ML VIAL SC SCH (17:59)
[2023-12-07] MEDS: ACETAMINOPHEN 1,000 MG/100 ML VIAL IV SCH (19:52)
[2023-12-07] MEDS ORDERED: traZODone HCL 50 MG TAB PO SCH (21:00)
[2023-12-07] MEDS: MELATONIN 3 MG TAB PO PRN (21:10)
--- NOTE | 2023-12-07 21:45 | Ultrasound Report ---
Exam(s): US ABDOMEN LIMITED EXAM: US Abdomen Limited, Right Upper Quadrant CLINICAL HISTORY: Abdominal distention and Pain TECHNIQUE: Real-time ultrasound of the right upper quadrant with image documentation. COMPARISON: No relevant prior studies available. FINDINGS: Liver: Fatty infiltration of the liver. No intrahepatic bile duct dilation. Gallbladder: There is moderate free fluid adjacent to the gallbladder which is nonspecific. No definitive thickening of the gallbladder wall. Common bile duct: Not visualized due to overlying bowel gas. Pancreas: The pancreas is not visualized. Right kidney: The right kidney is unremarkable as visualized. No stones. No hydronephrosis. IMPRESSION: 1. There is moderate free fluid adjacent to the gallbladder which is nonspecific. No definitive thickening of the gallbladder wall. 2. Fatty infiltration of the liver. Electronically signed by: Vane Brewer MD 12/07/23 21:45 PM
[2023-12-08 06:34] LABS: Albumin Level 2.4 gm/dl (3.4-5.0); BUN Creatinine Ratio 15.3 (10-20); Bilirubin,Total 0.9 mg/dl (0.2-1.0); Calcium 7.5 mg/dl (8.6-10.3); Creatinine Clr Calc Pharmacy 22.1 ml/min; Est GFR (African American) 17.9 ml/min; Est GFR (Non-African American) 15.4 ml/min; Globulin 2.3 gm/dl (2.5-4.0); Magnesium 1.8 mg/dl (1.7-2.4); Phosphorus 2.9 mg/dl (2.5-4.9); Potassium 3.6 mmol/L (3.5-5.1); Total Protein 4.7 gm/dl (6.0-8.3)
--- NOTE | 2023-12-08 06:42 | Hospitalist Progress Note ---
Date of Service December 08, 2023 Assessment & Plan (1) GERD (gastroesophageal reflux disease): (2) Hyperlipidemia: (3) Hypertension: (4) Neutropenia: (5) Abnormal LFTs: (6) Sepsis: (7) NHL (non-Hodgkin's lymphoma): (8) NILSA (acute kidney injury): Plan Mr. Moran is a 68 y/o male with PMHx of recently diagnosed lung cancer (first session of chemotherapy on 11/27/23) who was admitted due to significant N/V/D and associated abdominal pain that began soon after his first session of chemotherapy. Today, continue to work on po intake. Ideally Cr should improve some more prior to discharge consideration. Neutropenic Fever (Resolved) Hypotension (Resolved) Nausea/Vomiting/Diarrhea (Improving) - Patient with several days of significant N/V/D and resulting dehydration and hypovolemia - Stool studies negative. C.diff negative. - Blood cultures from 12/01/23 negative for now. Repeat blood cultures also negative. - KUB unremarkable (12/04/23) - VSS and BP improved. No fevers. - Patient s/p 48 hours of Zosyn. - Continue Compazine/PPI + Reglan + Pepcid + Carafate + Simethicone. Will add Bentyl for before meals to limit abdominal pain. - Continue with Tylenol tid or Dilaudid prn for pain control - If abd pain worsens, may consider CTAP with oral contrast only given renal function. - Monitor am labs - Hematology/Oncology following NILSA // ATN - Creatinine not improving/stable today (3.75 --> 3.80) - Nephro consulted: Possible cause was intravascular volume depletion, hypotension, iodinated contrast, and recent chemotherapy. Strict Is and Os Replace electrolytes as needed - continue to monitor daily, ideally get some more improvement prior to consideration of discharge Thrombocytopenia - Platelets now improving to 85 today - Monitor am labs Hyponatremia - Improved (Na today of 135) - Suspect dilutional effect due to IVF - Will monitor am labs Lung Cancer - Heme/Onc following Due to poor tolerance of initial chemo regimen, planning on changing to Carboplatin/Pemetrexed/Nivolumab for subsequent cycles - WBC of 1.59 (ANC of 0.49) HTN - Home Olmesartan held HLD - Continue Zetia GERD - Continue PPI IVF: none Diet: Low fiber DVT ppx: Renally dosed Lovenox subQ Admission and Anticipated Discharge Date Admission Date: December 01, 2023 Supervising Physician Co-Signing Physician Notes ATTESTATION I also saw the patient and confirmed bae portions of the history and exam. I agree with the impression and plan in the resident documentation, and as summarized below. Patient slept quite a bit today. He felt better when he awoke later this afternoon - the most he has slept since admission he thought. He has been increasnig walking around the floor. No complaints today. EXAM 120/60, 89, 18 Alert and oriented. No obvious distress. Heart regular rate and rhythm Respirations nonlabored Abdomen non tender DATA Labs WBC 2.27; Cr 3.8. Micro Blood cultures collected 12/03/2023 showed no growth at 48 hours. IMPRESSION & PLAN Nausea vomiting, resolved Abdominal cramping, intermittent Acute kidney injury Antineoplastic chemotherapy induced pancytopenia Adenocarcinoma of the lung Symptomatically improved today; less abdominal pain, better sleep, increased activity Continue PPI and Bentyl; appetite improving Not getting fluids now; if creatinine stable and electrolytes remain acceptable, could consider discharge with close outpatient follow up See resident documentation for additional Subjective Mr. Moran is a 68 y/o male with PMHx of HTN, HLD, GERD, and recently diagnosed lung cancer who was admitted due to significant N/V and watery diarrhea associated with generalized abdominal pain that began soon after his first chemotherapy (11/27/23). He was also experiencing decreased appetite and low PO intake, as well as cough, headache, and myalgias. Today, pt states he did not sleep well last night since he had been given only 3 mg of melatonin, which he states would definitely not be enough. He states he just feels so restless and uncomfortable on the hospital bed. Otherwise, he states he is feeling fair. He states he does not have much of an appetite since everything tastes very metallic to him so he can hardly enjoy food. Otherwise, no further questions or complaints at this time. Family present with him. Review of Systems Review of Systems: As per HPI. Physical Exam Physical Exam: General:Alert and oriented, no acute distress, HEENT: Normocephalic, moist oral mucosa, Cardio: Regular rate and rhythm, no murmur, Resp:Lungs clear to auscultation b/l, no wheezes or rhonchi, Skin: Warm, pink, dry, Results & Data Results & Data Vital Signs (Past 12 Hours) Vital Signs Temp Pulse Pulse Resp BP Pulse Ox O2 Del Method 12/08/23 04:00 36.8 C 96 H 22 159/74 H 93 Room Air 12/08/23 00:00 37.2 C 84 20 135/64 93 Room Air 12/07/23 22:30 79 12/07/23 20:01 37.5 C 85 18 156/70 H 96 Room Air Resident Activity Tracking Resident Involvement: Resident Care Provided Care Provided: Adult Hospital Medicine
[2023-12-08 06:56] LABS: Hematocrit (blood only) 36.3 % (42.0-52.0); Mean Corpuscular Hemoglobin 30.4 pg (25.0-34.0); Mean Corpuscular Hgb Conc 35.8 g/dL (32.0-36.0); Mean Platelet Volume 12.4 fL (9.4-12.4); Platelet Count 85 K/uL (130-400); RDW Coefficient of Variation 12.3 % (11.5-14.5); Red Blood Count 4.27 M/uL (4.70-6.10); White Blood Count 2.27 K/ul (4.8-10.8)
[2023-12-08 07:23] LABS: Basophils # (auto) 0.02 K/uL (0.00-0.20); Basophils % (auto) 0.9 %; Dohle Bodies 1+; Eosinophils # (auto) 0.03 K/uL (0.00-0.50); Eosinophils % (auto) 1.3 %; Immature Granulocytes # (auto) 0.02 K/uL (0.01-0.20); Immature Granulocytes % (auto) 0.9 %; Lymphocytes # (auto) 0.98 K/uL (1.20-3.40); Lymphocytes % (auto) 43.2 %; Monocytes # (auto) 0.13 K/uL (0.11-0.59); Monocytes % (auto) 5.7 %; Neutrophils # (auto) 1.09 K/uL (1.40-6.50); Toxic Granulation 2+
--- NOTE | 2023-12-08 08:19 | Nephrology Progress Note ---
Date of Service December 08, 2023 Assessment & Plan (1) NILSA (acute kidney injury): Plan: * Suspect ATN on the basis of dehydration, IV contrast and recent [place] based chemotherapy. Abdominal CT was negative for hydronephrosis. Patient remains in the injury phase at this time * Patient had two unmeasured voids yesterday. I&O's were not recorded. Weight is unchanged since 12/01/23 * Clinically euvolemic. Electrolyte balance is acceptable. Creatinine is rela tively unchanged at 3.8. No acute indication for HD at this time * Continue supportive care, monitor PRP (2) Nausea vomiting and diarrhea: Plan: * Resolved. Suspect chemotherapy related. (3) Adenocarcinoma, lung: Plan: * 09/28/[address]: 1.4 x 1 cm RUL lung nodule c/w primary lung malignancy Admission and Anticipated Discharge Date Admission Date: December 01, 2023 Subjective Mr. Moran was evaluated in his hospital room this morning. He c/o difficulty sleeping but denied fever, flank pain, hematuria or uremic symptoms. He reports good UO Review of Systems Constitutional: no fever Eyes: no problem reported Ear, Nose, Mouth, Throat: no problem reported Respiratory: no cough and no dyspnea Cardiovascular: no chest pain Gastrointestinal: no abdominal pain, no nausea, no vomiting and no diarrhea/loose stools Physical Exam Constitutional: not in distress Eyes: PERRL, conjunctivae normal, anicteric sclerae ENMT: external ear and nose normal, oropharynx normal Neck: trachea midline, no thyromegaly Respiratory: normal respiratory effort, lungs clear to auscultation Cardiovascular: Rate/Rhythm: regular rate and regular rhythm Extremities: + edema (trace LE swelling) Results & Data Vital Signs (Past 12 Hours) Vital Signs Temp Pulse Pulse Pulse Resp BP Pulse Ox 12/08/23 08:06 37.0 C 87 18 139/87 95 12/08/23 04:00 36.8 C 96 H 22 159/74 H 93 12/08/23 00:00 37.2 C 84 20 135/64 93 12/07/23 22:30 79 O2 Del Method 12/08/23 08:06 Room Air 12/08/23 04:00 Room Air 12/08/23 00:00 Room Air 12/07/23 22:30 Laboratory Results Laboratory Results - last 24 hr 12/07/23 12/08/23 06:52 05:39 WBC 2.27 L RBC 4.27 L Hgb 13.0 L Hct 36.3 L MCV 85.0 MCH 30.4 MCHC 35.8 RDW Std Deviation 38.0 RDW Coeff of [place] 12.3 Plt Count 85 L MPV 12.4 Immature Gran % (Auto) 0.6 0.9 Neut % (Auto) 30.9 48.0 Lymph % (Auto) 52.2 43.2 [place] % (Auto) 13.8 5.7 Eos % (Auto) 1.9 1.3 Baso % (Auto) 0.6 0.9 Neut # (Auto) 0.49 L* 1.09 L Lymph # (Auto) 0.83 L 0.98 L [place] # (Auto) 0.22 0.13 Eos # (Auto) 0.03 0.03 Baso # (Auto) 0.01 0.02 Immature Gran # (Auto) 0.01 0.02 Toxic Granulation 2+ 2+ Dohle Bodies 1+ 1+ Tear Drop Cells 1+ Sodium 135 L Potassium 3.6 Chloride 105 Carbon Dioxide 24 Anion Gap 6 BUN 58 H Creatinine 3.80 H Est Cr Clr Drug Dosing 22.1 Est GFR ( Amer) 17.9 Est GFR (Non-Af Amer) 15.4 BUN/Creatinine Ratio 15.3 Glucose 125 H Calcium 7.5 L Phosphorus 2.9 Magnesium 1.8 Total Bilirubin 0.9 AST 18 ALT 21 Alkaline Phosphatase 84 Total Protein 4.7 L Albumin 2.4 L Globulin 2.3 L Albumin/Globulin Ratio 1.0 PG Care Time/CCT Total # of Minutes Spent Total Time Spent with Patient: Total time spent is greater than 50% in coordination of care (as documented) at patient's floor/unit and/or counseling patient: Coding Level of Care Code 61853 SUB INP/OBS CARE 3/50MIN Diagnoses NILSA (acute kidney injury) N17.9 Nausea vomiting and diarrhea R11.2; R19.7 Adenocarcinoma, lung C34.90
[2023-12-08] MEDS: MELATONIN 3 MG TAB PO PRN (19:58)
[2023-12-09 06:45] LABS: Albumin Level 2.5 gm/dl (3.4-5.0); BUN Creatinine Ratio 13.9 (10-20); Bilirubin,Total 0.7 mg/dl (0.2-1.0); Est GFR (African American) 17.8 ml/min; Est GFR (Non-African American) 15.3 ml/min; Globulin 2.4 gm/dl (2.5-4.0); Magnesium 1.7 mg/dl (1.7-2.4); Potassium 3.5 mmol/L (3.5-5.1); Total Protein 4.9 gm/dl (6.0-8.3)
--- NOTE | 2023-12-09 07:00 | Hospitalist Progress Note ---
Date of Service December 09, 2023 Assessment & Plan (1) GERD (gastroesophageal reflux disease): (2) Hyperlipidemia: (3) Hypertension: (4) Neutropenia: (5) Abnormal LFTs: (6) Sepsis: (7) NHL (non-Hodgkin's lymphoma): (8) NILSA (acute kidney injury): Plan Mr. Moran is a 68 y/o male with PMHx of recently diagnosed lung cancer (first session of chemotherapy on 11/27/23) who was admitted due to significant N/V/D and associated abdominal pain that began soon after his first session of chemotherapy. Pantocytopenia seem to be resolving, WBC 5.63, ANC 3.76. hgb 13.4. Thrombocytopenia is trending up today at 101. Creatinine still elevated at 3.83. Plain lumbar x rays ordered due to his new onset back pain. Will do a trial of oxycodone 5 mg to transition to PO pain meds Neutropenic Fever (Resolved) Hypotension (Resolved) Nausea/Vomiting/ Diarrhea (Improving) - Patient with several days of significant N/V/D and resulting dehydration and hypovolemia - Stool studies negative. C.diff negative. - Blood cultures x 2 negative - KUB unremarkable (12/04/23) - VSS and BP improved. No fevers. - Patient s/p 48 hours of Zosyn. - Continue Compazine/PPI + Reglan + Pepcid + Carafate + Simethicone. Will add Bentyl for before meals to limit abdominal pain. - Continue with Tylenol tid or Dilaudid prn for pain control - Oxycodone 5 mg added to transition to PO meds - Monitor am labs NILSA // ATN - Creatinine not improving/stable today (3.80--> 3.82) - Nephro consulted: Possible cause was intravascular volume depletion, hypotension, iodinated contrast, and recent chemotherapy. Strict Is and Os Replace electrolytes as needed - continue to monitor daily, ideally get some more improvement prior to consideration of discharge - UA Pancytopenia Thrombocytopenia - Platelets now improving to 101 today - Monitor am labs Hyponatremia - resolved - Improved (Na today of 137) - Suspect dilutional effect due to IVF - Will monitor am labs Lung Cancer - Heme/Onc following Due to poor tolerance of initial chemo regimen, planning on changing to Carboplatin/Pemetrexed/Nivolumab for subsequent cycles - WBC of 5.63 (ANC of 3.76) Monitor am labs HTN - Home Olmesartan held - BP elevated today, consider amlodipine if not better after pain control HLD - Continue Zetia GERD - Continue PPI IVF: none Diet: Low fiber DVT ppx: Renally dosed Lovenox subQ Admission and Anticipated Discharge Date Admission Date: December 01, 2023 Supervising Physician Co-Signing Physician Notes ATTESTATION I also saw the patient and confirmed bae portions of the history and exam. I agree with the impression and plan in the resident documentation, and as summarized below. Patient seated in bedside chair. Multiple family was visiting. He describes having a rather large bowel movement, mixed loose stool and formed stool. EXAM 157/66, 86, 18, 36.5, 95% room air Alert and oriented. No obvious distress. Heart regular rate and rhythm Respirations nonlabored Abdomen non tender DATA Labs White blood cell count 5.63, hemoglobin 13.4, platelet count 101 Micro Blood cultures collected 12/03/2023 showed no growth at 48 hours. IMPRESSION & PLAN Nausea vomiting, resolved Abdominal cramping, improved Acute kidney injury/ATN Antineoplastic chemotherapy induced pancytopenia, improving Adenocarcinoma of the lung Will switch to oral oxycodone to see if we can control the pain he has with something he could take at home Right blood cell count and platelets rebounded nicely Continue PPI; appetite continues to improve Presenting with significant abdominal cramping for which we added the Bentyl; this seems to have helped, can probably decrease dose and see how he does Not getting fluids now; if creatinine stable and electrolytes remain acceptable and pain is easily controlled with oral medications, could consider discharge tomorrow with close outpatient follow up See resident documentation for additional Subjective Mr. Moran is a 68 y/o male with PMHx of HTN, HLD, GERD, and recently diagnosed lung cancer who was admitted due to significant N/V and watery diarrhea associated with generalized abdominal pain that began soon after his first chemotherapy (11/27/23). He was also experiencing decreased appetite and low PO intake, as well as cough, headache, and myalgias. Evaluated this morning found awake and in no acute distress. Refers mild back pain that he attributes it to the uncomfortable bed. He refers having still diarrhea mix with solids. Tolerating meals well, nausea or vomiting. He refers feeling full more easily now. Otherwise, he feel well. No further questions or complains. Review of Systems Review of Systems: As per HPI. Physical Exam Constitutional: WD/WN, vitals as above Alert and oriented , no acute distress Respiratory: normal respiratory effort, lungs clear to auscultation Cardiovascular: RRR, no murmur, no edema Gastrointestinal (Abdomen): normal bowel sounds, soft, nontender, no hepatosplenomegaly Skin: no rashes, warm and dry Results & Data Results & Data Vital Signs (Past 12 Hours) Vital Signs Temp Pulse Resp BP BP Pulse Ox O2 Del Method 12/09/23 03:56 36.8 C 94 H 20 142/73 H 95 Room Air 12/08/23 23:03 36.4 C L 81 20 137/65 94 Room Air 12/08/23 19:42 37.2 C 89 18 126/60 94 Room Air Resident Activity Tracking Resident Involvement: Resident Care Provided Care Provided: Adult Hospital Medicine
[2023-12-09 07:10] LABS: Basophils # (auto) 0.09 K/uL (0.00-0.20); Basophils % (auto) 1.6 %; Eosinophils # (auto) 0.03 K/uL (0.00-0.50); Eosinophils % (auto) 0.5 %; Hematocrit (blood only) 39.5 % (42.0-52.0); Hemoglobin 13.4 g/dl (14.0-18.0); Immature Granulocytes # (auto) 0.22 K/uL (0.01-0.20); Immature Granulocytes % (auto) 3.9 %; Lymphocytes # (auto) 1.31 K/uL (1.20-3.40); Lymphocytes % (auto) 23.3 %; Mean Corpuscular Hemoglobin 30.2 pg (25.0-34.0); Mean Corpuscular Hgb Conc 33.9 g/dL (32.0-36.0); Mean Platelet Volume 11.5 fL (9.4-12.4); Monocytes # (auto) 0.22 K/uL (0.11-0.59); Monocytes % (auto) 3.9 %; Neutrophils # (auto) 3.76 K/uL (1.40-6.50); Neutrophils % (auto) 66.8 %; Platelet Count 101 K/uL (130-400); RDW Coefficient of Variation 12.9 % (11.5-14.5); Red Blood Count 4.44 M/uL (4.70-6.10); Toxic Granulation 3+; Toxic Vacuolation 2+; White Blood Count 5.63 K/ul (4.8-10.8)
--- NOTE | 2023-12-09 08:59 | Nephrology Progress Note ---
Date of Service December 09, 2023 Assessment & Plan (1) NILSA (acute kidney injury): Plan: * Suspect ATN on the basis of dehydration, IV contrast and recent [place] based chemotherapy. Abdominal CT was negative for hydronephrosis. Patient remains in the injury phase at this time * I&O's were not recorded. Will ask staff interpreter to provide patient w/ a urinal and record I&O's * Clinically euvolemic. Electrolyte balance is acceptable. Creatinine is relatively unchanged at 3.82. No acute indication for HD at this time * Continue supportive care, monitor PRP. Will order follow up urinalysis w/ microscopy (2) Nausea vomiting and diarrhea: Plan: * Resolved. Suspect chemotherapy related. (3) Adenocarcinoma, lung: Plan: * 09/28/[address]: 1.4 x 1 cm RUL lung nodule c/w primary lung malignancy Admission and Anticipated Discharge Date Admission Date: December 01, 2023 Subjective Mr. Moran was evaluated in his hospital room this morning. He reports semiformed stool but denies fever, abdominal pain. He does endorse back discomfort but attributes that to an uncomfortable bed. Patient reports good UO but has not been collecting urinary void for I&O's due to ongoing diarrhea/semi- formed stool Review of Systems Constitutional: no fever Eyes: no problem reported Ear, Nose, Mouth, Throat: no problem reported Respiratory: no cough and no dyspnea Cardiovascular: no chest pain Gastrointestinal: + diarrhea/loose stools; no abdominal pa in, no nausea and no vomiting Physical Exam Constitutional: not in distress Eyes: PERRL, conjunctivae normal, anicteric sclerae ENMT: external ear and nose normal, oropharynx normal Neck: trachea midline, no thyromegaly Respiratory: normal respiratory effort, lungs clear to auscultation Cardiovascular: Rate/Rhythm: regular rate and regular rhythm Extremities: + edema (trace LE swelling) Results & Data Vital Signs (Past 12 Hours) Vital Signs Temp Pulse Resp BP BP Pulse Ox O2 Del Method 12/09/23 07:20 37.0 C 97 H 18 168/81 H 96 Room Air 12/09/23 03:56 36.8 C 94 H 20 142/73 H 95 Room Air 12/08/23 23:03 36.4 C L 81 20 137/65 94 Room Air Laboratory Results Laboratory Results - last 24 hr 12/09/23 06:02 WBC 5.63 RBC 4.44 L Hgb 13.4 L Hct 39.5 L MCV 89.0 MCH 30.2 MCHC 33.9 RDW Std Deviation 42.0 RDW Coeff of [place] 12.9 Plt Count 101 L MPV 11.5 Immature Gran % (Auto) 3.9 Neut % (Auto) 66.8 Lymph % (Auto) 23.3 [place] % (Auto) 3.9 Eos % (Auto) 0.5 Baso % (Auto) 1.6 Neut # (Auto) 3.76 Lymph # (Auto) 1.31 [place] # (Auto) 0.22 Eos # (Auto) 0.03 Baso # (Auto) 0.09 Immature Gran # (Auto) 0.22 H Toxic Granulation 3+ Toxic Vacuolation 2+ Sodium 137 Potassium 3.5 Chloride 106 Carbon Dioxide 26 Anion Gap 5 BUN 53 H Creatinine 3.82 H Est Cr Clr Drug Dosing 22.0 Est GFR ( Amer) 17.8 Est GFR (Non-Af Amer) 15.3 BUN/Creatinine Ratio 13.9 Glucose 98 Calcium 8.0 L Phosphorus 3.0 Magnesium 1.7 Total Bilirubin 0.7 AST 18 ALT 25 Alkaline Phosphatase 100 Total Protein 4.9 L Albumin 2.5 L Globulin 2.4 L Albumin/Globulin Ratio 1.0 PG Care Time/CCT Total # of Minutes Spent Total Time Spent with Patient: Total time spent is greater than 50% in coordination of care (as documented) at patient's floor/unit and/or counseling patient: Coding Level of Care Code 22719 SUB INP/OBS CARE 3/50MIN Diagnoses NILSA (acute kidney injury) N17.9 Nausea vomiting and diarrhea R11.2; R19.7 Adenocarcinoma, lung C34.90
[2023-12-09 11:35] LABS: Appearance Urine Clear (Clear); Bacteria Urine Automated None Seen (None Seen); Bilirubin Urine Negative (Negative); Blood Urine Negative (Negative); Cast Urine Automated 0-2 /lpf (0-2); Color Urine Yellow; Epithelial Cell Urine Auto 0-2 /hpf (0-2); Glucose Urine UA Negative (Negative); Ketones Urine 1+ (Negative); Leukocyte Esterase Urine Negative (Negative); Nitrite Urine Negative (Negative); Protein Urine 1+ (Negative); RBC Urine Automated 0-2 /hpf (0-2); Specific Gravity Urine 1.021 (1.000-1.030); Urobilinogen Urine Negative (Negative); WBC Urine Automated 0-5 /hpf (0-5)
[2023-12-09 11:50] LABS: Creatinine Urine Random 143.2 mg/dl; Protein Creatinine Ratio Urine 0.5 (0-0.2)
[2023-12-09] MEDS: oxyCODONE/ACETAMINOPHEN 5mg/325mg TAB PO PRN (14:20)
--- NOTE | 2023-12-09 14:50 | XRay Report ---
XR lumbar spine 2-3V CLINICAL HISTORY: New onset, Back pain COMPARISON STUDY: Lumbar spine radiographs June 08, 2022. Lumbar spine MRI November 21, 2022. FINDINGS: Alignment of the lumbar spine is anatomic. There are no lumbar spine fractures. There is mi ld disc space narrowing at L5-S1. Mild facet arthrosis is noted at several levels. The appearance of the lumbar spine is unchanged. IMPRESSION: 1. No lumbar spine fractures. 2. Mild multilevel degenerative changes within the lumbar spine. ACT 112: Negative or not required by law. Electronically signed by: Isaiah Deleon M.D. 12/09/2023 2:49 PM
[2023-12-09] MEDS: DICYCLOMINE HCL 20 MG TAB PO SCH (17:17)
[2023-12-10 08:07] LABS: Albumin Level 2.4 gm/dl (3.4-5.0); BUN Creatinine Ratio 12.4 (10-20); Bilirubin,Total 0.6 mg/dl (0.2-1.0); Creatinine Clr Calc Pharmacy 23.2 ml/min; Est GFR (African American) 18.5 ml/min; Est GFR (Non-African American) 15.9 ml/min; Globulin 2.4 gm/dl (2.5-4.0); Potassium 3.6 mmol/L (3.5-5.1); Total Protein 4.8 gm/dl (6.0-8.3)
--- NOTE | 2023-12-10 08:33 | Nephrology Progress Note ---
Date of Service December 10, 2023 Assessment & Plan (1) NILSA (acute kidney injury): Plan: * Suspect ATN on the basis of dehydration, IV contrast and recent [place] based chemotherapy. Abdominal CT was negative for hydronephrosis. Patient remains in the injury phase of ATN at this time * UO 600 cc yesterday. Patient is nonoliguric. Continue to monitor I&O closely * 12/09/23 Urinalysis is negative for blood or protein. Urine microscopy is acellular * Clinically euvolemic. Electrolyte balance is acceptable. Creatinine is relatively unchanged at 3.7. No acute indication for HD at this time * Continue supportive care, monitor PRP, UO. Ideally would like to see kidney function improving prior to discharge from hospital * Will request consultation w/ dietitian to provide education on low potassium renal diet * Neutropenia resolved. Recommend advancing activity, ambulate in hallway (2) Nausea vomiting and diarrhea: Plan: * Resolved. Suspect chemotherapy related. (3) Adenocarcinoma, lung: Plan: * 09/28/[address]: 1.4 x 1 cm RUL lung nodule c/w primary lung malignancy Admission and Anticipated Discharge Date Admission Date: December 01, 2023 Subjective Mr. Moran was evaluated in his hospital room this morning. He reports 4 semiformed BM yesterday. His back discomfort is subjectively improved. UO was 600 cc yesterday Review of Systems Constitutional: no fever Eyes: no problem reported Ear, Nose, Mouth, Throat: no problem reported Respiratory: no cough and no dyspnea Cardiovascular: no chest pain Gastrointestinal: + diarrhea/loose stools; no abdominal pa in, no nausea and no vomiting Physical Exam Constitutional: not in distress Eyes: PERRL, conjunctivae normal, anicteric sclerae ENMT: external ear and nose normal, oropharynx normal Neck: trachea midline, no thyromegaly Respiratory: normal respiratory effort, lungs clear to auscultation Cardiovascular: Rate/Rhythm: regular rate and regular rhythm Extremities: + edema (trace LE swelling) Results & Data Vital Signs (Past 12 Hours) Vital Signs Temp Pulse Pulse Resp BP BP Pulse Ox 12/10/23 07:25 36.6 C 83 18 133/71 93 12/10/23 03:54 37.1 C 94 H 18 129/62 93 12/09/23 23:21 36.6 C 82 18 146/74 H 92 12/09/23 22:12 88 O2 Del Method 12/10/23 07:25 Room Air 12/10/23 03:54 Room Air 12/09/23 23:21 Room Air 12/09/23 22:12 Laboratory Results Laboratory Results - last 24 hr 12/09/23 12/10/23 12/10/23 Unknown 05:56 07:20 WBC Cancelled RBC Cancelled Hgb Cancelled Hct Cancelled MCV Cancelled MCH Cancelled MCHC Cancelled RDW Std Deviation Cancelled RDW Coeff of [place] Cancelled Plt Count Cancelled MPV Cancelled Immature Gran % (Auto) Cancelled Neut % (Auto) Cancelled Lymph % (Auto) Cancelled [place] % (Auto) Cancelled Eos % (Auto) Cancelled Baso % (Auto) Cancelled Neut # (Auto) Cancelled Lymph # (Auto) Cancelled [place] # (Auto) Cancelled Eos # (Auto) Cancelled Baso # (Auto) Cancelled Immature Gran # (Auto) Cancelled Absolute Nucleated RBC Cancelled Nucleated RBC % (auto) Cancelled Neutrophils % (Manual) Cancelled Band Neutrophils % Cancelled Lymphocytes % (Manual) Cancelled Prolymphocyte % Cancelled Reactive Lymphs % (Man) Cancelled Monocytes % (Manual) Cancelled Eosinophils % (Manual) Cancelled Basophils % (Manual) Cancelled Metamyelocytes % (Man) Cancelled Myelocytes % (Man) Cancelled Promyelocytes % (Man) Cancelled Blast Cells % (Manual) Cancelled Plasma Cell % (Manual) Cancelled Other Cells % Cancelled Nucleated RBC % Cancelled Neutrophils # (Manual) Cancelled Band Neutrophils # Cancelled Total Absolute Neuts Cancelled Lymphocytes # (Manual) Cancelled Prolymphocyte # Cancelled Reactive Lymphs # Cancelled Total Abs Lymphocytes Cancelled Monocytes # (Manual) Cancelled Eosinophils # (Manual) Cancelled Basophils # (Manual) Cancelled Metamyelocytes # (Man) Cancelled Myelocytes # (Manual) Cancelled Promyelocytes # (Man) Cancelled Blast Cells # (Man) Cancelled Plasma Cell # (Manual) Cancelled Other Cells # Cancelled Nucleated RBCs # (Man) Cancelled Hypersegmented Neuts Cancelled Hyposegmented Neuts Cancelled Hypogranular Neuts Cancelled Large Granular Lymphs Cancelled # Lrg Granular Lymphs Cancelled Hairy Cells Cancelled Smudge Cells Cancelled Toxic Granulation Cancelled Toxic Vacuolation Cancelled Dohle Bodies Cancelled Benitez Rods Cancelled Platelet Estimate Cancelled Hypogranular Platelets Cancelled Giant Platelets Cancelled Platelet Satelliting Cancelled RBC Morphology Cancelled Polychromasia Cancelled Hypochromasia Cancelled Poikilocytosis Cancelled Basophilic Stippling Cancelled Anisocytosis Cancelled Microcytosis Cancelled Macrocytosis Cancelled Spherocytes Cancelled Pappenheimer Bodies Cancelled Sickle Cells Cancelled Target Cells Cancelled Tear Drop Cells Cancelled Ovalocytes Cancelled Stomatocytes Cancelled [place] Bodies Cancelled Echinocytes Cancelled Acanthocytes (Spur) Cancelled Rouleaux Cancelled RBC Agglutinates Cancelled Schistocytes Cancelled Sezary Cell Cancelled Sodium 138 Potassium 3.6 Chloride 108 H Carbon Dioxide 24 Anion Gap 6 BUN 46 H Creatinine 3.70 H Est Cr Clr Drug Dosing 23.2 Est GFR ( Amer) 18.5 Est GFR (Non-Af Amer) 15.9 BUN/Creatinine Ratio 12.4 Glucose 98 Calcium 8.0 L Total Bilirubin 0.6 AST 17 ALT 20 Alkaline Phosphatase 104 Total Protein 4.8 L Albumin 2.4 L Globulin 2.4 L Albumin/Globulin Ratio 1.0 Urine Color Yellow Urine Appearance Clear Urine pH 5.0 Ur Specific Diana 1.021 Urine Protein 1+ H Urine Glucose (UA) Negative Urine Ketones 1+ H Urine Blood Negative Urine Nitrite Negative Urine Bilirubin Negative Urine Urobilinogen Negative Ur Leukocyte Esterase Negative Urine WBC (Auto) 0-5 Urine RBC (Auto) 0-2 U Hyaline Cast (Auto) 0-2 U Epithel Cells (Auto) 0-2 Urine Bacteria (Auto) None Seen Ur Random Creatinine 143.2 U Random Total Protein 65.0 H Protein/Creatinin Ratio 0.5 H Blood Parasites ID Cancelled Laboratory Tests 12/10/23 08:27 WBC 12.35 H Hgb 12.7 L Hct 37.1 L Plt Count 141 PG Care Time/CCT Total # of Minutes Spent Total Time Spent with Patient: Total time spent is greater than 50% in coordination of care (as documented) at patient's floor/unit and/or counseling patient: Coding Level of Care Code 90693 SUB INP/OBS CARE 3/50MIN Diagnoses NILSA (acute kidney injury) N17.9 Nausea vomiting and diarrhea R11.2; R19.7 Adenocarcinoma, lung C34.90
[2023-12-10 09:18] LABS: Hematocrit (blood only) 37.1 % (42.0-52.0); Hemoglobin 12.7 g/dl (14.0-18.0); Mean Corpuscular Hemoglobin 30.2 pg (25.0-34.0); Mean Corpuscular Hgb Conc 34.2 g/dL (32.0-36.0); Mean Corpuscular Volume 88.1 fL (80.0-100.0); Mean Platelet Volume 11.8 fL (9.4-12.4); Platelet Count 141 K/uL (130-400); RDW Coefficient of Variation 13.2 % (11.5-14.5); RDW Standard Deviation 42.5 fL (36.4-46.3); Red Blood Count 4.21 M/uL (4.70-6.10); White Blood Count 12.35 K/ul (4.8-10.8)
[2023-12-10 09:41] LABS: Basophils # (auto) 0.02 K/uL (0.00-0.20); Basophils % (auto) 0.2 %; Dohle Bodies 1+; Eosinophils # (auto) 0.06 K/uL (0.00-0.50); Eosinophils % (auto) 0.5 %; Immature Granulocytes # (auto) 1.03 K/uL (0.01-0.20); Immature Granulocytes % (auto) 8.3 %; Lymphocytes # (auto) 2.07 K/uL (1.20-3.40); Lymphocytes % (auto) 16.8 %; Monocytes # (auto) 0.52 K/uL (0.11-0.59); Monocytes % (auto) 4.2 %; Neutrophils # (auto) 8.65 K/uL (1.40-6.50); Toxic Granulation 2+
--- NOTE | 2023-12-10 10:23 | Hospitalist Progress Note ---
Date of Service December 10, 2023 Assessment & Plan (1) GERD (gastroesophageal reflux disease): (2) Hyperlipidemia: (3) Hypertension: (4) Neutropenia: (5) Abnormal LFTs: (6) Sepsis: (7) NHL (non-Hodgkin's lymphoma): (8) NILSA (acute kidney injury): Plan Mr. Moran is a 68 y/o male with PMHx of recently diagnosed lung cancer (first session of chemotherapy on 11/27/23) who was admitted due to significant N/V/D and associated abdominal pain that began soon after his first session of chemotherapy. Pancytopenia improved. Pain adequately controlled with Tylenol and Oxycodone. Will dc Dilaudid. Creatinine improved compared to yesterday. Will monitor am lab to ensure continued improvement. NILSA // ATN - Creatinine improved today (3.82 --> 3.70) - Nephro consulted: Possible cause was intravascular volume depletion, hypotension, iodinated contrast, and recent chemotherapy. Strict Is and Os Replace electrolytes as needed - Continue to monitor daily, ideally get some more improvement prior to consideration of discharge Neutropenic Fever (Resolved) Hypotension (Resolved) Nausea/Vomiting/ Diarrhea (Improving) - Patient with several days of significant N/V/D and resulting dehydration and hypovolemia - Stool studies negative. C.diff negative. - Blood cultures x 2 negative - KUB unremarkable (12/04/23) - VSS and BP improved. No fevers. - Patient s/p 48 hours of Zosyn. - Continue Compazine/PPI + Reglan + Pepcid + Carafate + Simethicone. Will add Bentyl for before meals to limit abdominal pain. - Continue with Tylenol tid or Oxycodone 5 mg - Monitor am labs Pancytopenia Thrombocytopenia - Platelets now improving to 141 today - Monitor am labs Hyponatremia (Resolved) - Na today of 138 Lung Cancer - Heme/Onc following Due to poor tolerance of initial chemo regimen, planning on changing to Carboplatin/Pemetrexed/Nivolumab for subsequent cycles - WBC of 12.35 (ANC of 8.65) - Monitor am labs HTN - Home Olmesartan held - Consider changing to CCB at discharge due to renal function HLD - Continue Zetia GERD - Continue PPI IVF: none Diet: Low fiber DVT ppx: Renally dosed Lovenox subQ Admission and Anticipated Discharge Date Admission Date: December 01, 2023 Supervising Physician Co-Signing Physician Notes I personally examined the patient and verified all bae points of history and exam, discussed case, and agree with decision making with Dr David feeling better mostly bored bowels slowing walking some eating/drinking/voiding well vitals noted nad heent nc at mmm breathing unlabored no accessory muscles good effort skin no rashes no pallor or icterus neuro no focal deficits IMPRESSION & PLAN Nausea vomiting, resolved Abdominal cramping/diarrhea - improved Acute kidney injury/ATN Antineoplastic chemotherapy induced pancytopenia, improving Adenocarcinoma of the lung on oral oxycodone to see if we can control the pain he has with something he could take at home - no complaints of pain today counts have improved, appetite improved cramping improved on bentyl only PO fluids at this time. Cr slightly improved from yesterday - continue to follow DVT proph - lovenox otherwise as above Subjective Mr. Moran is a 68 y/o male with PMHx of HTN, HLD, GERD, and recently diagnosed lung cancer who was admitted due to significant N/V and watery diarrhea associated with generalized abdominal pain that began soon after his first chemotherapy (11/27/23). He was also experiencing decreased appetite and low PO intake, as well as cough, headache, and myalgias. Evaluated at bedside this morning and was found to be AAOx3, afebrile, and in NAD. Patient refers improvement with regards to his abdominal pain and has not had episode of vomiting since 4 days ago. Stools are still soft but not watery. Has been able to eat better and has increased PO intake (ate his entire breakfast this morning). No other concerns. Review of Systems Review of Systems: As per HPI. Physical Exam Physical Exam: General: AAOx3, afebrile, uncomfortable, NAD HEENT: AT, NC, [place], EOM intact Throat: normal to visual inspection CV: RRR, no r/m/g Pulm: CTA bilaterally, normal respiratory effort GI: soft, mildly distended but improved compared to previous evaluations, mildly tender in all quadrants also improved Extremity: no swelling in bilateral LE, no calf tenderness Results & Data Results & Data Vital Signs (Past 12 Hours) Vital Signs Temp Pulse Resp BP BP Pulse Ox O2 Del Method 12/10/23 07:25 36.6 C 83 18 133/71 93 Room Air 12/10/23 03:54 37.1 C 94 H 18 129/62 93 Room Air 12/09/23 23:21 36.6 C 82 18 146/74 H 92 Room Air Resident Activity Tracking Resident Involvement: Resident Care Provided Care Provided: Adult Hospital Medicine
[2023-12-10] MEDS ORDERED: Nursing to Pharmacy Communication SCH (11:15)
[2023-12-10] MEDS: ACETAMINOPHEN 500 MG TAB ONE (12:19)
[2023-12-10] MEDS: ACETAMINOPHEN 500 MG TAB PO SCH (12:19)
--- NOTE | 2023-12-10 12:43 | Billing Data ---
Date of Service December 10, 2023 Coding Level of Care Code 87847 SUB INP/OBS CARE
[2023-12-10] MEDS: NYSTATIN CR 15 GM TUBE EXT SCH (17:26)
[2023-12-10] MEDS: POTASSIUM CHLORIDE 10 MEQ TABCR PO SCH (21:25)
[2023-12-11 06:06] LABS: Hematocrit (blood only) 37.3 % (42.0-52.0); Hemoglobin 12.4 g/dl (14.0-18.0); Mean Corpuscular Hemoglobin 29.7 pg (25.0-34.0); Mean Corpuscular Hgb Conc 33.2 g/dL (32.0-36.0); Mean Corpuscular Volume 89.2 fL (80.0-100.0); Mean Platelet Volume 11.1 fL (9.4-12.4); Platelet Count 168 K/uL (130-400); RDW Coefficient of Variation 13.3 % (11.5-14.5); RDW Standard Deviation 43.7 fL (36.4-46.3); Red Blood Count 4.18 M/uL (4.70-6.10); White Blood Count 12.57 K/ul (4.8-10.8)
[2023-12-11 06:17] LABS: BUN Creatinine Ratio 11.4 (10-20); Creatinine Clr Calc Pharmacy 22.8 ml/min; Est GFR (African American) 18.1 ml/min; Est GFR (Non-African American) 15.6 ml/min; Potassium 3.7 mmol/L (3.5-5.1)
--- NOTE | 2023-12-11 08:52 | Nephrology Progress Note ---
Date of Service December 11, 2023 Assessment & Plan (1) NILSA (acute kidney injury): Plan: * Suspect ATN on the basis of dehydration, IV contrast and recent iliamna based chemotherapy. Abdominal CT was negative for hydronephrosis. Patient remains in the injury phase of ATN at this time * UO 654 cc yesterday. Patient is nonoliguric * 12/09/23 Urinalysis is negative for blood or protein. Urine microscopy is acellular * Clinically euvolemic. Electrolyte balance is acceptable. Creatinine is relatively unchanged at 3.7. No acute indication for HD at this time * Dietitian provided education on low potassium/renal diet yesterday * Discussed with patient and his this morning that he has significant injury to his kidneys w/ EGFR 15 cc/min. Explained that hospitalization was recommended for ongoing monitoring of volume status, electrolyte balance and kidney function. Explained that recovery could be prolonged and NEUROSURGICAL PHYSICIAN ASSISTANT may become necessary as a bridge until kidney function recovers. Both Mr. Moran and his voiced understanding but feel that Mr. Moran will do better emotionally if he is at home. Mr. Moran is willing to return in 2 days for blood work and ongoing monitoring on an outpatient basis. I have instructed my office staff to schedule a hospital follow up visit w/ me on 12/12 and have placed orders in the EMR for outpatient labs to be completed 2 hours prior to the visit. Primary service has been updated (2) Nausea vomiting and diarrhea: Plan: * Resolved. Suspect chemotherapy related. (3) Adenocarcinoma, lung: Plan: * 09/28/[address]: 1.4 x 1 cm RUL lung nodule c/w primary lung malignancy Admission and Anticipated Discharge Date Admission Date: December 01, 2023 Subjective Mr. Moran was evaluated in his hospital room this morning. He reports loose BM last evening but reports good oral intake. He wishes to be discharged from the hospital today Review of Systems Constitutional: no fever Eyes: no problem reported Ear, Nose, Mouth, Throat: no problem reported Respiratory: no cough and no dyspnea Cardiovascular: no chest pain Gastrointestinal: + diarrhea/loose stools; no abdominal pa in, no nausea and no vomiting Physical Exam Constitutional: not in distress Eyes: PERRL, conjunctivae normal, anicteric sclerae ENMT: external ear and nose normal, oropharynx normal Neck: trachea midline, no thyromegaly Respiratory: normal respiratory effort, lungs clear to auscultation Cardiovascular: Rate/Rhythm: regular rate and regular rhythm Extremities: + edema (trace LE swelling) Results & Data Vital Signs (Past 12 Hours) Vital Signs Temp Pulse Resp BP Pulse Ox O2 Del Method 12/11/23 07:24 37.1 C 91 H 18 137/74 97 Room Air Laboratory Results Laboratory Results - last 24 hr 12/10/23 12/11/23 08:27 05:48 WBC 12.35 H 12.57 H RBC 4.21 L 4.18 L Hgb 12.7 L 12.4 L Hct 37.1 L 37.3 L MCV 88.1 89.2 MCH 30.2 29.7 MCHC 34.2 33.2 RDW Std Deviation 42.5 43.7 RDW Coeff of [place] 13.2 13.3 Plt Count 141 168 MPV 11.8 11.1 Immature Gran % (Auto) 8.3 Neut % (Auto) 70.0 Lymph % (Auto) 16.8 [place] % (Auto) 4.2 Eos % (Auto) 0.5 Baso % (Auto) 0.2 Neut # (Auto) 8.65 H Lymph # (Auto) 2.07 [place] # (Auto) 0.52 Eos # (Auto) 0.06 Baso # (Auto) 0.02 Immature Gran # (Auto) 1.03 H Toxic Granulation 2+ Dohle Bodies 1+ Sodium 139 Potassium 3.7 Chloride 107 Carbon Dioxide 26 Anion Gap 6 BUN 43 H Creatinine 3.76 H Est Cr Clr Drug Dosing 22.8 Est GFR ( Amer) 18.1 Est GFR (Non-Af Amer) 15.6 BUN/Creatinine Ratio 11.4 Glucose 119 H Calcium 8.0 L PG Care Time/CCT Total # of Minutes Spent Total Time Spent with Patient: Total time spent is greater than 50% in coordination of care (as documented) at patient's floor/unit and/or counseling patient: Coding Level of Care Code 46738 SUB INP/OBS CARE 3/50MIN Diagnoses NILSA (acute kidney injury) N17.9 Nausea vomiting and diarrhea R11.2; R19.7 Adenocarcinoma, lung C34.90
--- NOTE | 2023-12-11 11:31 | Discharge Summary ---
Date of Service December 11, 2023 Admission HPI Per Admitting Provider Prashanth Moran is a 68yo male with history of HTN, HLP, GERD and recently diagnosed lung cancer presenting with nausea, vomiting, diarrhea and abdominal pain. Patient recently started on chemotherapy (uncertain which medications - treatment was 11/27/23). Patient has been having persistent nausea, vomiting, diarrhea and abdominal pain for the last 2-3 days. Pain is cramping, stabbing and diffuse. He has had multiple episodes of non-bloody/non-bilious emesis - three episodes today with last one being prior to admission. He has had watery diarrhea as well. He has had poor appetite and decreased oral intake as well as myalgias, cough and headache. He denies fever No rash, oral pain or facial pain, no dysuria No additional complaints at this time No sick contacts or recent travel. In the ER he is afebrile, HD stable Admission Exam Per Admitting Provider General: patient ill in appearance, in distress secondary to abdominal pain Skin: warm, dry, intact, no rashes or lesions HEENT: NC/AT, PERRL, EOMI, anicteric sclera, conjunctiva without injection, external ear normal to inspection and nontender, nares patent, dry mucus m embranes, dentition intact, no oropharyngeal lesions, neck supple, trachea midline, no LAD, no thyromegaly, no JVD Heart: +S1/S2, regular, no m/r/g Lungs: equal air entry bilaterally, no rales/rhonchi/wheezes Abd: +BS, soft, tender, no masses/organomegaly or ascites Ext: warm, 2+ pulses in UE/LE bilaterally, no clubbing/cyanosis or edema Neuro: nonfocal, patient AA&O x 4, speech intact, no facial droop, moving all extremities on command with equal strength 5/5 Principal Diagnosis chemotherapy-induced N/V/D Discharge Exam General: AAOx3, afebrile, uncomfortable, NAD HEENT: AT, NC, [place], EOM intact Throat: normal to visual inspection CV: RRR, no r/m/g Pulm: CTA bilaterally, normal respiratory effort GI: soft, mildly distended but improved compared to previous evaluations, mildly tender in all quadrants also improved Extremity: no swelling in bilateral LE, no calf tenderness Discharge Data Allergies Allergy/AdvReac Type Severity Reaction Status Date / Time lorazepam [From Ativan] AdvReac Hallucinati Verified 12/04/23 17:43 ng Consultations 12/01/23 22:03 ED Decision to Admit Stat 12/02/23 04:18 Consult Oncology Routine 12/04/23 06:54 Consult Nephrology Routine Ordered Studies 12/01/23 19:33 CT abd pelvis IV con only Stat CT head/brain wo con Stat 12/07/23 16:24 US abdomen ltd ascites Urgent Hospital Course (1) GERD (gastroesophageal reflux disease): (2) Hyperlipidemia: (3) Hypertension: (4) Neutropenia: (5) Abnormal LFTs: (6) Sepsis: (7) NHL (non-Hodgkin's lymphoma): (8) NILSA (acute kidney injury): Plan Mr. Moran is a 68 y/o male with PMHx of recently diagnosed lung cancer (first session of chemotherapy on 11/27/23) who was admitted due to significant N/V/D and associated abdominal pain that began soon after his first session of chemotherapy. NILSA // ATN (Acute, not resolved) - Creatinine today stable around 3.7 (3.70-->3.76) - Advised this may take weeks to heal as it may have come as a consequence to multiple insults (chemo + contrast + hypovolemia) - Will discharge today with advise to get BMP in 2 days with close nephrology f/u in this period Neutropenic Fever (Resolved) Hypotension (Resolved) Nausea/Vomiting/ Diarrhea (Resolved) - Patient with several days of significant N/V/D and resulting dehydration and hypovolemia - Stool studies negative. C.diff negative. - Blood cultures x 2 negative - VSS and BP improved. No fevers. - Patient s/p 48 hours of Zosyn. - Managed with antacids, anti-emetics, and analgesia with successful control of symptoms - Will discharge today. Pancytopenia (Resolved) Thrombocytopenia (Resolved) - Platelets now improving to 168 today - Hgb 12.4 - WBC of 12.57 after Filgastrim administration Hyponatremia (Resolved) - Na today of 139 Lung Cancer (Chronic, stable) - Heme/Onc f/u after discharge Due to poor tolerance of initial chemo regimen, planning on changing to Carboplatin/Pemetrexed/Nivolumab for subsequent cycles HTN (Chronic, stable) - Will continue to hold Olmesartan as home dose was low and BP have been controlled without medications during this admission - PCP or scale tester may restart or change to CCB if appropriate given ATN HLD (Chronic, stable) - Continue Zetia GERD (Chronic, stable) - Continue PPI Will discharge today. Total Time Total Time Spent Total Time Spent (In Minutes): <30 Discharge Plan Discharge Items Patient Disposition: Home - Self-Care Reason For Visit: N/V/D, NEUTROPENIA Discharge Diagnosis: chemotherapy-induced N/V/D Activity: Per Instructions section Non-emergency contact: Primary Care Provider, Wedding Cake Designer and Oncologist Call non-emergency contact if: your symptoms worsen and your temperature is above 101 Follow-up/Referrals: Damion Emery MD [Physician] - 12/13/23 3:00 pm (within 2 days Needs to complete non fasting blood work and urine sample at least 2 hours before appointment ) Maggie Tipton DO [Primary Care Provider] - 12/17/23 8:25 am (within 1 week. Gin Castro NP ) Diet: Regular and Low Potassium (2gm) Addtl Attending Provider Instructions: You were admitted to the hospital for management of significant nausea, vomiting, and diarrhea associated with abdominal pain. After thorough evaluation through labs and imaging, we came to the conclusion that the symptoms you experienced may have been related to your recent chemotherapy combined with a possible infectious process. We managed to control your nausea and diarrhea with medications until the infection cleared your system and your symptoms resolved. However, due to the significant loss of fluids due to your vomiting and diarrhea plus your chemotherapy plus the IV contrast used for the CT scan done the day you arrived to the hospital, your kidneys were injured. The type of injury your kidneys got may take weeks to heal (similar to what you would see when you get a cut on your skin). For this reason, we were keeping a close eye on your kidney function to make sure that they kept healing instead of deteriorating. Today, your kidneys seem to have stayed stable compared to yesterday, and you may be discharged today but we strongly advise you follow up with your scale tester soon after discharge (in 2 days) with labs (a BMP) to be done on that same day to see how your kidney function is. A discharge summary will be sent to your primary care physician to ensure continuity of care. Please bring this discharge summary with you to your next office appointment so that your provider can review it at that time. Follow-up appointments: Make a follow-up appointment with your PCP within the next week. It is very important that you follow up with them shortly after discharge from the hospital. Make a follow-up appointment with your Wedding Cake Designer within the next 2 days. It is very important that you follow up with them shortly after discharge from the hospital. Keep all your follow-up appointments as already scheduled. If you cannot make an appointment, notify your provider. Medications: Your medication list has been reviewed and reconciled upon discharge to ensure accuracy and continuity of care. An updated list of all your medications is included with your hospital discharge paperwork. Please review this list clos ray, and make note of any changes. If you have any issues filling these prescriptions, please call [phone] and ask to leave a message for Dr. David. Take your medications as instructed; do not skip a dose of your medicines. Make sure all of your doctors know every medicine you are taking (including [id number] medicines, vitamins, and supplements). Call your primary care provider before taking any new medicines (including over- the-counter medicines, vitamins, and supplements), because some of these may interact with your current medications, or may make your symptoms worse. Tell your primary care provider if you cannot afford your medications. CONTACT YOUR PRIMARY CARE PROVIDER if you experience any of the following: Worsening of symptoms Fever, chills, or fatigue Difficulty following your treatment plan, or difficulty taking medications CALL 911 OR GO TO THE EMERGENCY DEPARTMENT if you experience any of the following: Sudden, severe abdominal pain or nausea/vomiting Severe chest pain, or chest pain that radiates (moves) to your jaw or arm Sudden, severe shortness of breath or difficulty breathing Thank you for allowing us to participate in your care. Pending Studies at Discharge: No Stand-Alone Forms: My [employer], Smoking Cessation Medications and DC Order Prescriptions: New nystatin 100,000 unit/gram Cream 1 applic EXT BID Qty: 15 0RF Continued ezetimibe 10 mg tablet 10 mg PO DAILY pantoprazole 40 mg Tablet,Delayed Release (Dr/Ec) 40 mg PO DAILY folic acid 1 mg tablet 1 mg PO .DAILY/UD Rx Instructions: START ONE WEEK BEFORE INITIAL PEMETREXED DOSE AND CONTINUE THREE WEEKS PAST FINAL DOSE ( INITIAL PEMETREXED DOSE WAS 11/27/23). prochlorperazine maleate 10 mg tablet 10 mg PO Q6H PRN (Reason: Nausea) dexamethasone 4 mg tablet 4 mg PO BID Rx Instructions: 12/01/23 START THE DAY BEFORE PEMETREXED AND CONTINUE FOR THREE DAYS AFTER CHEMO. olanzapine 2.5 mg tablet 2.5 mg PO HS Rx Instructions: 12/01/23 TAKE FOR FOUR DAYS STARTING ON DAY 1 OF CHEMO. NEXT ROUND OF CHEMO DUE 12/18/23. ondansetron HCl 8 mg tablet 8 mg PO Q8H PRN (Reason: Nausea And Vomiting) Held olmesartan 5 mg tablet 10 mg PO DAILY Hold Instructions: Resume on 11/23/23. BP adequate without medications. Will hold given ATN. Defer re-start of medication to PCP and/or scale tester. Discharge Orders: Discharge Order (Routine); Ordered 12/11/23 Ordered By: Felipa David Admission Data Admit Date/Time: 12/01/23 22:54 Attending Provider: Tristan Pabon Admit Provider: Anu Fang Primary Care Provider: Maggie Tipton Other Providers: Anu Fang; Carleen Gonzáles; Mane Martinez Other Interventions: Discharge Summary Assessment (RN) Last Done: 12/11/23 13:45 Supervising Physician Co-Signing Physician Notes I personally examined the patient and verified all bae points of history and exam, discussed case, and agree with decision making with Dr David Feels well and would very much like to go home. Discussed close follow-up vitals noted nad heent nc at mmm breathing unlabored no accessory muscles good effort skin no rashes no pallor or icterus neuro no focal deficits IMPRESSION & PLAN Nausea vomiting, resolved Abdominal cramping/diarrhea - improved Acute kidney injury/ATN Antineoplastic chemotherapy induced pancytopenia, improving Adenocarcinoma of the lung Creatinine has leveled offagree with nephrology would be better for ongoing inpatient observation given the severity of his renal failure, but at the same time patient has capacity to make his own decisions and very much wants to go home. Nephrology already discussed extremely tight follow-up and ongoing management. I discussed with patient in great detail the main acute concern and his severity of renal failure would be fluid retention/pulmonary edema, and emphasized that while not probable, if it were to happen it could essentially evolve into a life-threatening respiratory emergency requiring immediate dialysis over a very short period of timeto that end, reiterated multiple times that if his breathing at all seems "off" even in the least, it would be better for him to come back to the hospital for further evaluation. Otherwise following up in 48 hours with nephrology as per their plan. DVT proph - lovenox otherwise as above Resident Activity Tracking Resident Involvement: Resident Care Provided Care Provided: Adult Hospital Medicine
--- NOTE | 2023-12-11 18:25 | Billing Data ---
Date of Service December 11, 2023 Coding Level of Care Code 03909 IN/OBS DISCH 30 MIN/LESS
--- NOTE | 2023-12-11 18:26 | Billing Data ---
Date of Service December 11, 2023 Coding Level of Care Code 90826 IN/OBS DISCH 30 MIN/LESS
== END 2023-12-11 14:21 | disposition home or self-care (01) | DRG 391 ==
LOC: ED 19:24 → SUATTDRO 22:54 → 3E 22:54 → 2E 12-04 03:22 → 3E 12-10 14:00

== ENCOUNTER 2023-12-12 13:40 | Inpatient (IN) ==
--- NOTE | 2023-12-12 14:37 | Emergency Department Note ---
History of Present Illness General Chief complaint: Illness Time Seen by Provider: 12/12/23 14:16 History of Present Illness This is a 68-year-old male that presents to the emergency department via EMS with complaints of "illness". He is here today accompanied by . The patient notes that he has been experiencing nausea, vomiting, diarrhea and lower abdominal discomfort. He notes he was recently discharged from this hospital yesterday after a nearly 14-day stay. The patient states that he has recently been receiving chemotherapy for lung cancer. He states also kidney injury was identified during his time here. The patient denies any fever. No chest pain. No shortness of breath. No blood in the stool. He notes he cannot keep anything down regarding eating or drinking secondary to the vomiting and nausea. Home Medications Medication Instructions Recorded Confirmed Type pantoprazole 40 mg tablet,delayed 40 mg PO DAILY 08/24/21 12/12/23 History release ezetimibe 10 mg tablet 10 mg PO DAILY 06/07/23 12/12/23 History dexamethasone 4 mg tablet 4 mg PO BID PRN PER CHEMO 12/01/23 12/12/23 History INSTRUCTIONS folic acid 1 mg tablet 1 mg PO DIRECTED PRN PER CHEMO 12/01/23 12/12/23 History INSTRUCTIONS olanzapine 2.5 mg tablet 2.5 mg PO HS PRN DAY 1 OF CHEMO 12/01/23 12/12/23 History olmesartan 5 mg tablet 10 mg PO DAILY 12/01/23 12/12/23 History ondansetron HCl 8 mg tablet 8 mg PO Q8H PRN Nausea And Vomiting 12/01/23 12/12/23 History prochlorperazine maleate 10 mg 10 mg PO Q6H PRN Nausea 12/01/23 12/12/23 History tablet nystatin 100,000 unit/gram topical 1 applic EXT BID #15 grams 12/11/23 12/12/23 Rx cream Allergies Allergy/AdvReac Type Severity Reaction Status Date / Time lorazepam [From Ativan] AdvReac Intermediate Hallucinati Verified 12/12/23 16:17 ng Past Med/Surg History Medical History GERD (gastroesophageal reflux disease) Hyperlipidemia Hypertension CAP (community acquired pneumonia) Lumbar pain with radiation down right leg NHL (non-Hodgkin's lymphoma) (~1994) surgery + chemotherapy. 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 Beliefs That Will Affect Care: None Current Living Situation: Spouse current occupational status: employed Feels Safe at Home: Yes Safety Concerns: Feels Safe At This Time Assistive Devices: Denture - Upper Review of Systems A total of 10 systems reviewed and were otherwise negative Physical Exam Vital Signs Vital Signs - 24 hr 12/12/23 13:45 12/12/23 14:32 12/12/23 14:54 Temperature 37.0 C Temperature Source Oral Pulse Rate 100 H 97 H Pulse Rate from SpO2 Sensor Pulse Rhythm Regular Pulse Strength Normal Respiratory Rate 23 Respiratory Effort / Characteristics Non-Labored Respiratory Depth Normal Respiratory Pattern Regular Blood Pressure 153/96 H Blood Pressure Mean 115 Blood Pressure Position Sitting Pulse Oximetry 98 96 Oxygen Delivery Method Room Air Room Air Sepsis Recent Fever Within 48 Hours No Sepsis New/Unexplained Change in Mental Status No Sepsis Action Taken by Nursing No Action Required 12/12/23 15:36 12/12/23 16:00 Temperature Temperature Source Pulse Rate 93 H 90 Pulse Rate from SpO2 Sensor 93 H Pulse Rhythm Pulse Strength Respiratory Rate 16 17 Respiratory Effort / Characteristics Respiratory Depth Respiratory Pattern Blood Pressure 159/92 H 160/87 H Blood Pressure Mean 114 111 Blood Pressure Position Pulse Oximetry 95 94 Oxygen Delivery Method Room Air Room Air Sepsis Recent Fever Within 48 Hours Sepsis New/Unexplained Change in Mental Status Sepsis Action Taken by Nursing VITAL SIGNS - Vital signs and nursing notes were reviewed. Stable and afebrile. GENERAL -68-year-old male appearing his stated age who is in no acute distress. Communicates well with provider and answers questions appropriately. SKIN - Without rashes. No meningeal or petechial rash. HEAD - NC/AT. EYES - PERRL with EOMI bilaterally. Sclera anicteric. EARS - No deformities of external structures noted on gross examination bilaterally. NOSE - Midline and without cyanosis. No epistaxis or purulent drainage noted. MOUTH/OROPHARYNX - Without perioral cyanosis. NECK - Neck with FROM. No nuchal rigidity. LUNGS - CTA CARDIAC - RRR ABDOMEN - Abdominal contour normal without pulsations or visible masses. BS normoactive all four quadrants. Generalized abdominal tenderness more pronounced in the lower abdomen. There is no guarding. No rigidity. No palpable masses, hepatosplenomegaly, or ascites noted. EXTREMITIES - No clubbing or peripheral cyanosis. +5/5 strength noted in UE/LE bilaterally. NEUROLOGIC - Cranial nerves grossly intact. PSYCH -alert, oriented and pleasant on exam. Course Administered Medications Heparin Sodium (Porcine) (Heparin Sod 5,000 Unit/0.5 Ml Vial) 5,000 units SQ Q12 KIERRA Stop: 01/11/24 20:59 Last Admin: 12/12/23 20:41 Dose: 5,000 units Documented By: MEGAN Lactated Ringer's (Lr) 1,000 mls @ 150 mls/hr IV .Q6H40M KIERRA Stop: 12/13/23 20:09 Last Admin: 12/12/23 19:03 Dose: 150 mls/hr Documented By: MEGAN Acetaminophen (Ofirmev) 1,000 mg in 100 mls @ 400 mls/hr IV Q8H KIERRA Stop: 12/15/23 19:59 Last Infusion: 12/12/23 20:54 Dose: Infused Documented By: Admin: 12/12/23 20:39 Dose: 400 mls/hr Documented By: MEGAN Discontinued Medications Hydromorphone HCl (Hydromorphone Inj 0.5 Mg/0.5 Ml Syr) 0.25 mg IV NOW STA Stop: 12/12/23 14:52 Last Admin: 12/12/23 15:31 Dose: 0.25 mg Documented By: LEX Sodium Chloride (Nss) 1,000 mls @ 999 mls/hr IV .Q1H1M ONE Stop: 12/12/23 15:19 Last Infusion: 12/12/23 15:45 Dose: Infused Documented By: Admin: 12/12/23 14:42 Dose: 999 mls/hr Documented By: CATARINA Magnesium Sulfate/Dextrose (Magnesium Sulfate / D5w) 1 gm in 100 mls @ 50 mls/hr IV Q2H KIERRA Stop: 12/12/23 20:59 Last Infusion: 12/12/23 21:06 Dose: Infused Documented By: Admin: 12/12/23 19:03 Dose: 50 mls/hr Documented By: Infusion: 12/12/23 19:03 Dose: Infused Documented By: Admin: 12/12/23 17:58 Dose: 50 mls/hr Documented By: LEX Lactated Ringer's (Lr) 500 mls @ 999 mls/hr IV .Q31M STA Stop: 12/12/23 18:28 Last Infusion: 12/12/23 19:00 Dose: Infused Documented By: Admin: 12/12/23 17:59 Dose: 999 mls/hr Documented By: LEX Ondansetron HCl (Ondansetron Inj 2 Mg/Ml 2 Ml Vial) 4 mg IV NOW STA Stop: 12/12/23 14:20 Last Admin: 12/12/23 14:42 Dose: 4 mg Documented By: CATARINA Medical Decision Making Laboratory Data 12/12/23 15:29 12/12/23 15:29 Lab Results 12/12/23 12/12/23 Range/Units 15:15 15:29 WBC 9.23 (4.8-10.8) K/ul RBC 4.27 L (4.70-6.10) M/uL Hgb 12.9 L (14.0-18.0) g/dl Hct 37.9 L (42.0-52.0) % MCV 88.8 (80.0-100.0) fL MCH 30.2 (25.0-34.0) pg MCHC 34.0 (32.0-36.0) g/dL RDW Std Deviation 43.0 (36.4-46.3) fL RDW Coeff of [place] 13.2 (11.5-14.5) % Plt Count 215 (130-400) K/uL MPV 11.6 (9.4-12.4) fL Immature Gran % (Auto) 8.7 % Neut % (Auto) 61.1 % Lymph % (Auto) 17.9 % [place] % (Auto) 12.0 % Eos % (Auto) 0.1 % Baso % (Auto) 0.2 % Neut # (Auto) 5.64 (1.40-6.50) K/uL Lymph # (Auto) 1.65 (1.20-3.40) K/uL [place] # (Auto) 1.11 H (0.11-0.59) K/uL Eos # (Auto) 0.01 (0.00-0.50) K/uL Baso # (Auto) 0.02 (0.00-0.20) K/uL Immature Gran # (Auto) 0.80 H (0.01-0.20) K/uL Toxic Granulation 2+ Sodium 138 (136-145) mmol/L Potassium 3.5 (3.5-5.1) mmol/L Chloride 106 (98-107) mmol/L Carbon Dioxide 25 (21-32) mmol/L Anion Gap 7 (3-11) BUN 34 H (6-23) mg/dl Creatinine 3.21 H D (0.6-1.4) mg/dl Est Cr Clr Drug Dosing 26.6 ml/min Est GFR ( Amer) 21.9 ml/min Est GFR (Non-Af Amer) 18.9 ml/min BUN/Creatinine Ratio 10.6 (10-20) Glucose 111 H (70-99(Fasting)) mg/dl Lactate 0.9 (0.4-2.0) mmol/L Calcium 8.0 L (8.6-10.3) mg/dl Magnesium 1.3 L (1.7-2.4) mg/dl Total Bilirubin 0.5 (0.2-1.0) mg/dl Direct Bilirubin 0.2 (0-0.2) mg/dl AST 17 (13-39) U/L ALT 18 (7-52) U/L Alkaline Phosphatase 154 H (34-104) U/L Troponin I High Sens 26.0 H (0-20) pg/ml Total Protein 5.7 L (6.0-8.3) gm/dl Albumin 2.8 L (3.4-5.0) gm/dl Procalcitonin 0.32 (0-0.5) ng/ml Urine Color Yellow Urine Appearance Clear (Clear) Urine pH 5.5 (4.5-7.5) Ur Specific [place] 1.015 (1.000-1.030) Urine Protein Trace H (Negative) Urine Glucose (UA) Negative (Negative) Urine Ketones Negative (Negative) Urine Blood Negative (Negative) Urine Nitrite Negative (Negative) Urine Bilirubin Negative (Negative) Urine Urobilinogen Negative (Negative) Ur Leukocyte Esterase Negative (Negative) Urine WBC (Auto) 0-5 (0-5) /hpf Urine RBC (Auto) 0-2 (0-2) /hpf U Hyaline Cast (Auto) 0-2 (0-2) /lpf U Epithel Cells (Auto) 0-2 (0-2) /hpf Urine Bacteria (Auto) None Seen (None Seen) Stl C. cayetanensis PCR Not Detected (NotDetected) Stool Rotavirus A PCR Not Detected (NotDetected) Stl Adenov F 40/41 PCR Not Detected (NotDetected) Stool Astrovirus (PCR) Not Detected (NotDetected) Stool Campylobacter PCR Not Detected (NotDetected) Stl C. diff Tox B Gene Negative Cdiff Gene (Neg) Stool Cryptosporidium PCR Not Detected (NotDetected) Stl E.coli Shiga Tox PCR Not Detected (NotDetected) Stl Enterotoxigenic E PCR Not Detected (NotDetected) Stool EPEC (PCR) Not Detected (NotDetected) Stool EAEC (PCR) Not Detected (NotDetected) Stl E. histolytica PCR Not Detected (NotDetected) Stool Giardia Lamblia PCR Not Detected (NotDetected) Stool Salmonella PCR Not Detected (NotDetected) Stool Sapovirus (PCR) Not Detected (NotDetected) Stl P. shigelloides PCR Not Detected (NotDetected) Stl Shigella/EIEC PCR Not Detected (NotDetected) St Y.enterocolitica PCR Not Detected (NotDetected) Stool Vibrio (PCR) Not Detected (NotDetected) Stl Vibrio cholerae PCR Not Detected (NotDetected) Stl Norovirus GI/GII PCR Not Detected (NotDetected) Imaging Data Radiologist's Impression: Abdomen/Pelvis CT 12/12/23 14:[address] WITHOUT CONTRAST CT DOSE: 1426.88 mGy.cm HISTORY: Nausea. Vomiting. Diarrhea. Right lower quadrant abdominal pain. TECHNIQUE: Multiaxial CT images of the abdomen and pelvis were performed without contrast. A dose lowering technique was utilized adhering to the principles of ALARA. COMPARISON STUDY: Abdomen and pelvis CT 12/01/2023. FINDINGS: Left basilar linear densities favor subsegmental atelectasis are scarring. The right lung base is clear. No acute fractures. Poststernotomy changes. Hepatic steatosis. The unenhanced spleen, adrenal glands, pancreas, and gallbladder are unremarkable. No renal or ureteral stones. No hydronephrosis. Mild perinephric edema and mild lumbar subcutaneous edema is noted. There is mild diffuse body wall edema. Mildly ectatic abdominal aorta. No evidence for an abdominal aortic aneurysm. No retroperitoneal or pelvic lymphadenopathy. No pelvic free fluid. The bladder is unremarkable. Suboptimal evaluation for bowel pathology due to the lack of intravenous and oral contrast. However, there is no definite bowel wall thickening or obstruction. Normal appendix. Fluid-filled nondilated loops of large and small bowel seen throughout the abdomen. This favors a gastroenteritis/diarrheal illness. IMPRESSION: 1. No bowel wall thickening or obstruction. 2. Normal appendix. 3. Fluid-filled nondilated loops of large and small bowel seen throughout the abdomen. This favors a gastroenteritis/diarrheal illness. 4. Hepatic steatosis. 5. Mild body wall edema. ACT 112: Negative or not required by law. Electronically signed by: Uriel Calle M.D. 12/12/2023 3:27 PM Chest X-Ray 12/12/23 14:20 XR chest 1V portable HISTORY: Sepsis COMPARISON: Chest 12/01/2023. FINDINGS: No pneumothorax. No pleural effusions. There are poststernotomy changes. The cardiac silhouette remains top normal in size. Left basilar linear densities favor subsegmental atelectasis are scarring. Otherwise, no focal lung consolidations to suggest a pneumonia. No evidence for pulmonary edema. No acute fractures. There are low lung volumes. IMPRESSION: No acute process. ACT 112: Negative or not required by law. Electronically signed by: Uriel Calle M.D. 12/12/2023 3:13 PM [facility] Narrative Patient was seen and evaluated as above in room A03. Review was performed of triage nursing notes and vital signs. After obtaining a thorough history and physical examination the above work up was performed. Patient presents to us today via EMS for evaluation of nausea, vomiting as well as diarrhea with associated lower abdominal pain. Patient notes he was just discharged from the hospital yesterday and was in the hospital for about 2 weeks. The patient denies fever. He states that upon returning home particularly today he now notes return of the nausea, vomiting and inability to tolerate oral fluids/food. He also notes lower abdominal pain. Options of care were discussed with the patient. The patient was seen during. Of elevated volume and acuity in the emergency department. Several orders were already placed for the patient. I did review the orders. Labs reveal no leukocytosis. There is anemia noted with hemoglobin of 12.9. This is similar to previous. There is a slight improvement of the patient's kidney injury noted creatinine now 3.21. BUN 34. Glucose 111. Magnesium 1.3. Calcium is 8. Troponin was mildly elevated just above top normal and there is no chest pain or shortness of breath. Procalcitonin is within normal range but detectable at 0.32. Urinalysis does not suggest infection. Stool panel negative. Chest x- ray negative for acute process. CT scan of the abdomen/pelvis reveals no obstruction. There is fluid-filled nondilated loops of large and small bowel seen throughout the abdomen favoring a gastroenteritis/diarrheal illness per radiology. At this time I do believe that inpatient management is warranted. Patient in agreement with today's plan. Case discussed with the hospitalist service. Please refer to further documentation regarding his stay. EKG reveals normal sinus rhythm at a rate of 93 bpm. QTc 462. QRS 84. No ST elevation. Case was discussed with the attending physician. GCS: 15 In the evaluation and treatment of this patient the following differential diagnoses were entertained: Intestinal perforation, bowel obstruction, gastroenteritis, electrolyte disturbance, PA, esophagitis, gastritis, among others. Impression & Plan Nausea vomiting and diarrhea, Hypocalcemia, Hypomagnesemia, Elevated troponin, Abdominal pain, lower Discharge Plan Visit Data Chief Complaint: Illness ED Provider: Franck Wolff ED Midlevel Provider: Josh Peck Discharge Problem: Nausea vomiting and diarrhea, Hypocalcemia, Hypomagnesemia, Elevated troponin, Abdominal pain, lower Patient Disposition: Admitted As Inpatient Condition: Good Discharge Instructions Interventions: ED Discharge Assessment Last Done: 12/12/23 19:31
[2023-12-12] MEDS: SODIUM CHLORIDE 0.9% 1,000 ML IV ONE (14:42)
[2023-12-12] MEDS: ONDANSETRON INJ 2 MG/ML 2 ML VIAL IV STA (14:42)
--- NOTE | 2023-12-12 15:14 | XRay Report ---
XR chest 1V portable HISTORY: Sepsis COMPARISON: Chest 12/01/2023. FINDINGS: No pneumothorax. No pleural effusions. There are poststernotomy changes. The cardiac silhou ette remains top normal in size. Left basilar linear densities favor subsegmental atelectasis are sca rring. Otherwise, no focal lung consolidations to suggest a pneumonia. No evidence for pulmonary lisa a. No acute fractures. There are low lung volumes. IMPRESSION: No acute process. ACT 112: Negative or not required by law. Electronically signed by: Uriel Calle M.D. 12/12/2023 3:13 PM
--- NOTE | 2023-12-12 15:28 | CT Scan Report ---
ABDOMEN AND PELVIS CT WITHOUT CONTRAST CT DOSE: 1426.88 mGy.cm HISTORY: Nausea. Vomiting. Diarrhea. Right lower quadrant abdominal pain. TECHNIQUE: Multiaxial CT images of the abdomen and pelvis were performed without contrast. A dose lo wering technique was utilized adhering to the principles of ALARA. COMPARISON STUDY: Abdomen and pelvis CT 12/01/2023. FINDINGS: Left basilar linear densities favor subsegmental atelectasis are scarring. The right lung b ase is clear. No acute fractures. Poststernotomy changes. Hepatic steatosis. The unenhanced spleen, a drenal glands, pancreas, and gallbladder are unremarkable. No renal or ureteral stones. No hydronephr osis. Mild perinephric edema and mild lumbar subcutaneous edema is noted. There is mild diffuse body wall edema. Mildly ectatic abdominal aorta. No evidence for an abdominal aortic aneurysm. No retroper itoneal or pelvic lymphadenopathy. No pelvic free fluid. The bladder is unremarkable. Suboptimal eval uation for bowel pathology due to the lack of intravenous and oral contrast. However, there is no def inite bowel wall thickening or obstruction. Normal appendix. Fluid-filled nondilated loops of large a nd small bowel seen throughout the abdomen. This favors a gastroenteritis/diarrheal illness. IMPRESSION: 1. No bowel wall thickening or obstruction. 2. Normal appendix. 3. Fluid-filled nondilated loops of large and small bowel seen throughout the abdomen. This favors a gastroenteritis/diarrheal illness. 4. Hepatic steatosis. 5. Mild body wall edema. ACT 112: Negative or not required by law. Electronically signed by: Uriel Calle M.D. 12/12/2023 3:27 PM
[2023-12-12] MEDS: HYDROmorphone INJ 0.5 MG/0.5 ML SYR IV STA (15:31)
[2023-12-12 15:57] LABS: Appearance Urine Clear (Clear); Bacteria Urine Automated None Seen (None Seen); Bilirubin Urine Negative (Negative); Blood Urine Negative (Negative); Cast Urine Automated 0-2 /lpf (0-2); Color Urine Yellow; Epithelial Cell Urine Auto 0-2 /hpf (0-2); Glucose Urine UA Negative (Negative); Ketones Urine Negative (Negative); Leukocyte Esterase Urine Negative (Negative); Nitrite Urine Negative (Negative); Protein Urine Trace (Negative); RBC Urine Automated 0-2 /hpf (0-2); Specific Gravity Urine 1.015 (1.000-1.030); Urobilinogen Urine Negative (Negative); WBC Urine Automated 0-5 /hpf (0-5); pH Urine 5.5 (4.5-7.5)
--- NOTE | 2023-12-12 15:57 | History & Physical Report ---
Date of Service December 12, 2023 Assessment & Plan (1) Nausea vomiting and diarrhea: Plan: Patient returns for N/V/D and low transverse abdominal pain after recent discharge on 12/10 Recent [facility] admission from 11/30-12/10 for similar; thought to be secondary to chemotherapy A/P CT revealed fluid-filled nondilated loops that could favor gastroenteritis/diarrheal illness Procalcitonin and lactate WNL PCR stool/C. difficile ordered, pending Zofran as needed for nausea/vomiting; QTc 462 Reglan 10 mg p.o. q6h PRN Compazine 5 mg IV q6h as needed for chemo induced nausea/vomiting Simethicone chew 80 mg p.o. as needed for flatulence Sucralfate 1 g suspension BID as needed for upper GI toxicity following radiation therapy PPI + Pepcid A.m. CBC, BMP, mag (2) Adenocarcinoma, lung: Plan: First chemotherapy session on 11/26 No leukocytosis; afebrile; patient is not neutropenic (as before) Due to poor tolerance of initial chemo regimen, oncology was planning on changing to Carboplatin/Pemetrexed/Nivolumab for subsequent cycles Folic acid 1 mg p.o. daily Hematology/oncology consulted Acetaminophen 1000 mg IV scheduled TID Dilaudid 0.5-1.0 as needed for breakthrough pain Dietitian consulted in setting of poor oral intake PT/OT consulted to prevent deconditioning (3) Acute kidney injury (NILSA) with acute tubular necrosis (ATN): Plan: Suspected ATN secondary to dehydration, IV contrast, and recent [place] based chemotherapy BUN 34, creatinine 3.21 (baseline around 1.0), EGFR 18.9 on arrival Avoid nephrotoxic agents for possible IVF resuscitation with LR bolus 500mL + LR at 150mL/hr x 4 Nephrology consulted (4) Hypomagnesemia: Plan: Magnesium 1.3 on arrival Magnesium sulfate 1 g x 2 given Recheck a.m. mag (5) GERD (gastroesophageal reflux disease): Plan: Protonix 40 mg p.o. --> 40mg IV daily Famotidine 20 mg IV daily (6) Hypocalcemia: Plan: Ca 8.0 on arrival Corrected Ca 9.0 (when accounting for hypoalbuminemia) Ionized calcium 09/01/2023 was at 1.01 Continue to monitor (7) Elevated troponin: Plan: Elevated troponin at 26.0, repeat pending Clinically, patient denies chest pain at this time Continuous telemetry monitoring (8) Hypokalemia: Plan: Low-normal at time of admission; K 3.5 Will continue potassium supplementation 20mEq p.o. daily Monitor daily BMPs (9) Hypertension: Plan: Hold olmesartan (10) Hyperlipidemia: Plan: Hold Zetia for now Plan Disposition: Admit to PCU telemetry DNR/DNI Clear liquid diet and advance as tolerated VTE PPx: Heparin 5000u SQ q12h History of Present Illness Chief Complaint: Illness Primary Care Provider: Maggie Tipton DO Prashanth is a 68-year-old male with PMH of recently diagnosed stage IIb right upper lobe lung adenocarcinoma, neutropenia, HTN, HLD, and GERD. He returned shortly after discharge on 12/11 for N/V/D and lower abdominal pain. Remote history: [facility] for N/V/D in setting of new lung cancer, neutropenic fever, NILSA/ATN, and pancytopenia. His first session of chemotherapy was on 11/27/2023, and he was subsequently admitted thereafter (please see hospital progress notes for full history). Patient reports he felt well upon discharge yesterday, but then woke up around noon on 12/11 and had 45 episodes of bilious vomiting around 1 PM. No blood in his vomit. He did not eat very much this morning, as he was not feeling hungry. He also endorses ongoing diarrhea x 12 days, as well as low transverse bilateral abdominal pain rated 5/10 at present, but 10 out of 10 at worst. He reports the pain comes and goes, and Tylenol does not help at home. No exacerbating or alleviating factors. No radiation to the flanks, back, or down the legs. Patient did not take any of his regular morning medications today, and has only had Tylenol 500 mg p.o. he reports that the nausea and pain medications were working here prior to leaving. Last BM was this morning on 12/11. No prior abdominal surgeries. Patient is a former tobacco cigarette smoker; quit 1 year ago. No recent alcohol use. While he does not have a POA, he reports that he would want his to be POA in the event he cannot make medical decisions. 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 Patient's vitals are stable at admission. ED course: NSS 1000 mL IV Zofran 4 mg IV Dilaudid 0.25 mg IV ROS: Patient endorses chills, nausea, vomiting, LLQ abdominal pain, bilious/yellow vomiting this morning, diarrhea, and neuropathy intermittently in the fingers (which patient attributes to the chemo). Patient denies fever, night-sweats, new body aches, dizziness, lightheadedness, headaches, changes in vision/hearing, chest pain, chest palpitations, pleuritic CP, SOB, burning with urination, and blood in urine/stool. Allergies Allergy/AdvReac Type Severity Reaction Status Date / Time lorazepam [From Ativan] AdvReac Intermediate Hallucinati Verified 12/12/23 16:17 ng Home Medications Medication Instructions Recorded Confirmed Type pantoprazole 40 mg tablet,delayed 40 mg PO DAILY 08/24/21 12/12/23 History release ezetimibe 10 mg tablet 10 mg PO DAILY 06/07/23 12/12/23 History dexamethasone 4 mg tablet 4 mg PO BID PRN PER CHEMO 12/01/23 12/12/23 History INSTRUCTIONS folic acid 1 mg tablet 1 mg PO DIRECTED PRN PER CHEMO 12/01/23 12/12/23 History INSTRUCTIONS olanzapine 2.5 mg tablet 2.5 mg PO HS PRN DAY 1 OF CHEMO 12/01/23 12/12/23 History olmesartan 5 mg tablet 10 mg PO DAILY 12/01/23 12/12/23 History ondansetron HCl 8 mg tablet 8 mg PO Q8H PRN Nausea And Vomiting 12/01/23 12/12/23 History prochlorperazine maleate 10 mg 10 mg PO Q6H PRN Nausea 12/01/23 12/12/23 History tablet nystatin 100,000 unit/gram topical 1 applic EXT BID #15 grams 12/11/23 12/12/23 Rx cream Past Med/Surg History Medical History (Updated 12/12/23 @ 17:27 by Uriel Ag PA-C) GERD (gastroesophageal reflux disease) Hyperlipidemia Hypertension CAP (community acquired pneumonia) Lumbar pain with radiation down right leg NHL (non-Hodgkin's lymphoma) (~1994) surgery + chemotherapy. remission currently Surgical History History of colonoscopy History of esophagogastroduodenoscopy (EGD) Hx of surgical procedure tumor removal from chest "open surgery" Family History Other No pertinent family history Social History Smoking Status: Never smoker Tobacco Type: Cigarettes Cigarettes Per Day: 12; Second Hand Exposure: No; Do You Dip or Chew Tobacco: No; Hx Alcohol Use: Yes Alcohol type: beer Hx Substance Use: No Preferred Language: Arabic Communication Ability: Effective Resolution Expert Required: No Beliefs That Will Affect Care: None Current Living Situation: Spouse current occupational status: employed Feels Safe at Home: Yes Assistive Devices: None Review of Systems Review of Systems: See HPI above Physical Exam Physical Exam: General: Moderate physical distress secondary to stomach pain; pleasant affect non-toxic appearing; cooperative HEENT: normocephalic, atraumatic; no scleral icterus; PERRLA; moist mucus membrane; vision and hearing grossly intact Neck: supple; no lymphadenopathy; trachea midline Skin: warm, dry without signs of tenting; no cyanosis; no rashes, bruising, lesions, or erythema noted CV: chest wall NTP; RRR; S1/S2 normal; no murmurs/rubs/gallops; pulses intact and symmetric at radial, DP, and PT Lungs: no acute respiratory distress; symmetrical chest wall expansion; clear breath sounds across all lung cox w/o adventitious sounds; no wheezing ABD: Soft; firm stomach with significant distention; LLQ, RLQ, and suprapubic region are TTP; BS present MSK: no tics or fasciculations; +2 pitting edema in the LEs B/L, nonerythematous Neuro: A&Ox3; normal mood and affect; fluent speech; no focal deficits; sensation grossly intact in the LEs b/l Results & Data Results & Data Vital Signs (Past 12 Hours) Vital Signs Temp Pulse Resp BP Pulse Ox O2 Del Method 12/12/23 15:36 93 H 16 159/92 H 95 Room Air 12/12/23 14:54 96 Room Air 12/12/23 14:32 97 H 12/12/23 13:45 37.0 C 100 H 23 153/96 H 98 Room Air Laboratory Results Abnormal lab results 12/12/23 12/12/23 Range/Units 15:15 15:29 RBC 4.27 L (4.70-6.10) M/uL Hgb 12.9 L (14.0-18.0) g/dl Hct 37.9 L (42.0-52.0) % [place] # (Auto) 1.11 H (0.11-0.59) K/uL Immature Gran # (Auto) 0.80 H (0.01-0.20) K/uL BUN 34 H (6-23) mg/dl Creatinine 3.21 H D (0.6-1.4) mg/dl Glucose 111 H (70-99(Fasting)) mg/dl Calcium 8.0 L (8.6-10.3) mg/dl Magnesium 1.3 L (1.7-2.4) mg/dl Alkaline Phosphatase 154 H (34-104) U/L Troponin I High Sens 26.0 H (0-20) pg/ml Total Protein 5.7 L (6.0-8.3) gm/dl Albumin 2.8 L (3.4-5.0) gm/dl Urine Protein Trace H (Negative) Diagnostic Findings Abdomen/Pelvis CT 12/12/23 14:[address] WITHOUT CONTRAST CT DOSE: 1426.88 mGy.cm HISTORY: Nausea. Vomiting. Diarrhea. Right lower quadrant abdominal pain. TECHNIQUE: Multiaxial CT images of the abdomen and pelvis were performed without contrast. A dose lowering technique was utilized adhering to the principles of ALARA. COMPARISON STUDY: Abdomen and pelvis CT 12/01/2023. FINDINGS: Left basilar linear densities favor subsegmental atelectasis are scarring. The right lung base is clear. No acute fractures. Poststernotomy changes. Hepatic steatosis. The unenhanced spleen, adrenal glands, pancreas, and gallbladder are unremarkable. No renal or ureteral stones. No hydronephrosis. Mild perinephric edema and mild lumbar subcutaneous edema is noted. There is mild diffuse body wall edema. Mildly ectatic abdominal aorta. No evidence for an abdominal aortic aneurysm. No retroperitoneal or pelvic lymphadenopathy. No pelvic free fluid. The bladder is unremarkable. Suboptimal evaluation for bowel pathology due to the lack of intravenous and oral contrast. However, there is no definite bowel wall thickening or obstruction. Normal appendix. Fluid-filled nondilated loops of large and small bowel seen throughout the abdomen. This favors a gastroenteritis/diarrheal illness. IMPRESSION: 1. No bowel wall thickening or obstruction. 2. Normal appendix. 3. Fluid-filled nondilated loops of large and small bowel seen throughout the abdomen. This favors a gastroenteritis/diarrheal illness. 4. Hepatic steatosis. 5. Mild body wall edema. ACT 112: Negative or not required by law. Electronically signed by: Uriel Calle M.D. 12/12/2023 3:27 PM Chest X-Ray 12/12/23 14:20 XR chest 1V portable HISTORY: Sepsis COMPARISON: Chest 12/01/2023. FINDINGS: No pneumothorax. No pleural effusions. There are poststernotomy changes. The cardiac silhouette remains top normal in size. Left basilar linear densities favor subsegmental atelectasis are scarring. Otherwise, no focal lung consolidations to suggest a pneumonia. No evidence for pulmonary edema. No acute fractures. There are low lung volumes. IMPRESSION: No acute process. ACT 112: Negative or not required by law. Electronically signed by: Uriel Calle M.D. 12/12/2023 3:13 PM ECG Additional Comments: ECG reveals NSR at 93 bpm; QTc 462 Code Status & VTE Plan Code Status DNR/DNI VTE Prophylaxis Plan VTE Prophylaxis will be ordered: Yes Supervising Physician Co-Signing Physician Notes Patient seen and examined, chart reviewed, case discussed with Uriel Ag and I agree with the assessment and plan as above except as otherwise noted Labs and images reviewed Prashanth is a 68-year-old male with recently diagnosed right upper lobe lung adenocarcinoma who started chemotherapy 12/11 and has had subsequent nausea/vomiting/diarrhea who presents with recurrent nausea/vomiting/diarrhea and diarrhea which has not improved for 1 to 2 weeks. He is followed by heme- onc and anticipates a change in regimen for subsequent cycles as noted above. He is admitted for symptomatic care at this time. At time of admission no leukocytosis. Appears like contracted with tacky mucous membranes labs with creatinine 3.76, patient's baseline creatinine prior to 12/01 was 1.27 and is gradually risen suspected ATN. He does not show any signs of obstruction on imaging. Fluids continued. UA pending. Trope 26 without signs of ACS, troponin trended Suspect demand. At time of hospitalist assessment abdominal pain is improved/nearly resolved following initial medications, no rebound/guarding. agree with rehydration and electrolyte management as above. Pro-Corey is negative, no signs of infectious pathology and C. difficile is negative. CTA/P favoring gastroenteritis/diarrheal illness within normal appendix and no other acute abnormalities noted. PG Care Time/CCT Total # of Minutes Spent Total Time Spent with Patient: Total time spent is greater than 50% in coordination of care (as documented) at patient's floor/unit and/or counseling patient: [place] [address] INT INP/OBS CARE 3/75MIN Patient Type Established Medical Decision Making High Complexity Diagnoses Nausea vomiting and diarrhea R11.2; R19.7 Adenocarcinoma, lung C34.90 Acute kidney injury (NILSA) with acute tubular necrosis (ATN) N17.0 Hypomagnesemia E83.42 GERD (gastroesophageal reflux disease) K21.9 Hypocalcemia E83.51 Elevated troponin R79.89 Hypokalemia E87.6 Hypertension I10 Hyperlipidemia E78.5
[2023-12-12 16:07] LABS: Albumin Level 2.8 gm/dl (3.4-5.0); BUN Creatinine Ratio 10.6 (10-20); Bilirubin Direct 0.2 mg/dl (0-0.2); Bilirubin,Total 0.5 mg/dl (0.2-1.0); Creatinine Clr Calc Pharmacy 26.6 ml/min; Est GFR (African American) 21.9 ml/min; Est GFR (Non-African American) 18.9 ml/min; Magnesium 1.3 mg/dl (1.7-2.4); Potassium 3.5 mmol/L (3.5-5.1); Total Protein 5.7 gm/dl (6.0-8.3)
[2023-12-12 16:13] LABS: Hematocrit (blood only) 37.9 % (42.0-52.0); Hemoglobin 12.9 g/dl (14.0-18.0); Mean Corpuscular Hemoglobin 30.2 pg (25.0-34.0); Mean Corpuscular Volume 88.8 fL (80.0-100.0); Mean Platelet Volume 11.6 fL (9.4-12.4); Platelet Count 215 K/uL (130-400); RDW Coefficient of Variation 13.2 % (11.5-14.5); Red Blood Count 4.27 M/uL (4.70-6.10); White Blood Count 9.23 K/ul (4.8-10.8)
[2023-12-12 16:14] LABS: Basophils # (auto) 0.02 K/uL (0.00-0.20); Basophils % (auto) 0.2 %; Eosinophils # (auto) 0.01 K/uL (0.00-0.50); Eosinophils % (auto) 0.1 %; Immature Granulocytes % (auto) 8.7 %; Lymphocytes # (auto) 1.65 K/uL (1.20-3.40); Lymphocytes % (auto) 17.9 %; Monocytes # (auto) 1.11 K/uL (0.11-0.59); Neutrophils # (auto) 5.64 K/uL (1.40-6.50); Neutrophils % (auto) 61.1 %; Toxic Granulation 2+
--- NOTE | 2023-12-12 16:35 | Electrocardiogram Report ---
Test Reason : Blood Pressure : / mmHG Vent. Rate : 093 BPM Atrial Rate : 093 BPM P-R Int : 126 ms QRS Dur : 084 ms QT Int : 372 ms P-R-T Axes : 024 -08 050 degrees QTc Int : 462 ms Normal sinus rhythm Normal ECG When compared with ECG of 01-DEC-2023 19:57, No significant change was found Confirmed by Cisco Frost ([id number]) on 12/12/2023 4:35:09 PM Referred By: REFERRED SELF Confirmed By:Cisco Frost
[2023-12-12 17:10] LABS: Adenovirus F 40/41 PCR Not Detected (NotDetected); Astrovirus PCR Not Detected (NotDetected); Campylobacter PCR Not Detected (NotDetected); Cryptosporidium PCR Not Detected (NotDetected); Cyclospora cayetanensis PCR Not Detected (NotDetected); Entamoeba histolytica PCR Not Detected (NotDetected); Enteroaggregative E.coli(EAEC) Not Detected (NotDetected); Enteropathogenic E.coli (EPEC) Not Detected (NotDetected); Enterotoxigenic E.coli (ETEC) Not Detected (NotDetected); Giardia lamblia PCR Not Detected (NotDetected); Norovirus GI/GII PCR Not Detected (NotDetected); Plesiomonas shigelloides PCR Not Detected (NotDetected); Rotavirus A PCR Not Detected (NotDetected); Salmonella PCR Not Detected (NotDetected); Sapovirus PCR Not Detected (NotDetected); Shiga-like Toxin E.coli (STEC) Not Detected (NotDetected); Shigella/Enteroinvasive E.coli Not Detected (NotDetected); Vibrio cholerae PCR Not Detected (NotDetected); Vibrio species PCR Not Detected (NotDetected); Yersinia enterocolitica PCR Not Detected (NotDetected)
[2023-12-12] MEDS: MAGNESIUM SULFATE / D5W 1 GM/100 ML BAG IV SCH (17:58)
[2023-12-12] MEDS: LACTATED RINGER'S 500 ML IV STA (17:59)
[2023-12-12] MEDS: LACTATED RINGER'S 1,000 ML IV SCH (19:03)
[2023-12-12] MEDS ORDERED: ONDANSETRON INJ 2 MG/ML 2 ML VIAL IV PRN (19:30)
[2023-12-12] MEDS ORDERED: SUCRALFATE 1 GM/10 ML UDC PO PRN (19:30)
[2023-12-12] MEDS ORDERED: HYDROmorphone INJ 1 MG/ML SYRINGE IV PRN (19:30)
[2023-12-12] MEDS ORDERED: METOCLOPRAMIDE HCL 10 MG TABLET PO PRN (19:30)
[2023-12-12] MEDS ORDERED: SIMETHICONE 80 MG CHEW PO PRN (19:30)
[2023-12-12] MEDS ORDERED: HYDROmorphone INJ 0.5 MG/0.5 ML SYR IV PRN (19:30)
[2023-12-12] MEDS: ACETAMINOPHEN 1,000 MG/100 ML VIAL IV SCH (20:39)
[2023-12-12] MEDS: HEPARIN SOD 5,000 UNIT/0.5 ML VIAL SQ SCH (20:41)
[2023-12-13 05:29] LABS: Albumin Level 2.3 gm/dl (3.4-5.0); BUN Creatinine Ratio 9.8 (10-20); Bilirubin,Total 0.4 mg/dl (0.2-1.0); Calcium 7.3 mg/dl (8.6-10.3); Creatinine Clr Calc Pharmacy 27.9 ml/min; Est GFR (African American) 23.2 ml/min; Est GFR (Non-African American) 20.1 ml/min; Globulin 2.3 gm/dl (2.5-4.0); Magnesium 1.6 mg/dl (1.7-2.4); Potassium 3.4 mmol/L (3.5-5.1); Total Protein 4.6 gm/dl (6.0-8.3)
[2023-12-13 05:42] LABS: Hematocrit (blood only) 33.2 % (42.0-52.0); Hemoglobin 11.1 g/dl (14.0-18.0); Mean Corpuscular Hemoglobin 29.9 pg (25.0-34.0); Mean Corpuscular Hgb Conc 33.4 g/dL (32.0-36.0); Mean Corpuscular Volume 89.5 fL (80.0-100.0); Mean Platelet Volume 11.6 fL (9.4-12.4); Platelet Count 206 K/uL (130-400); RDW Coefficient of Variation 13.5 % (11.5-14.5); RDW Standard Deviation 44.2 fL (36.4-46.3); Red Blood Count 3.71 M/uL (4.70-6.10); White Blood Count 7.62 K/ul (4.8-10.8)
[2023-12-13 05:43] LABS: Basophils # (auto) 0.03 K/uL (0.00-0.20); Basophils % (auto) 0.4 %; Eosinophils # (auto) 0.02 K/uL (0.00-0.50); Eosinophils % (auto) 0.3 %; Immature Granulocytes # (auto) 0.67 K/uL (0.01-0.20); Immature Granulocytes % (auto) 8.8 %; Lymphocytes # (auto) 1.64 K/uL (1.20-3.40); Lymphocytes % (auto) 21.5 %; Monocytes # (auto) 1.03 K/uL (0.11-0.59); Monocytes % (auto) 13.5 %; Neutrophils # (auto) 4.23 K/uL (1.40-6.50); Neutrophils % (auto) 55.5 %; Toxic Granulation 1+
[2023-12-13] MEDS ORDERED: Nursing to Pharmacy Communication SCH (06:15)
--- NOTE | 2023-12-13 08:04 | Oncology Consultation ---
Date of Consultation December 13, 2023 Assessment & Plan (1) Abdominal pain, lower: (2) Colitis: (3) Hypomagnesemia: (4) Acute kidney injury (NILSA) with acute tubular necrosis (ATN): Plan - Nausea and vomiting likely due to cisplatin. States that symptoms have improved. May need to give Aloxi again if symptoms recur. Compazine as needed -Diarrhea likely also due to chemotherapy. Less likely due to immunotherapy since he only started treatment about 2 weeks ago. However, will check calprotectin level in stool to assess for this. No indication at this time for colonoscopy to assess for immune mediated colitis or steroids since diarrhea appears to be grade 1. Consider Imodium if diarrhea persists. Thank you for this consult. Will continue to follow patient while he is in the hospital. Please feel free to call if you have any further questions. History of Present Illness Reason for Consultation: Lung cancer s/p chemo presenting with vomiting and diarrhea Attending Physician: Tristan Pabon DO History of Present Illness Mr. Moran is a 68-year-old gentleman with history of non-Hodgkin's lymphoma in 1994 s/p sternotomy with resection followed by chemotherapy and radiation treatments. He was recently diagnosed with stage IIB right upper lobe lung adenocarcinoma for which he received cycle 1 of neoadjuvant systemic chemoimmunotherapy treatment with cisplatin, pemetrexed and pembrolizumab on 11/27/2023. He was admitted to [facility] from 12/01/2023 to 12/11/2023 after presenting with nausea, vomiting, diarrhea, dizziness and acute renal failure. Clinical condition improved and subsequently discharged home a couple of days ago. He states that he developed nausea and vomiting yesterday. Also states that he has had ongoing diarrhea with 2-[address] per day. CT abdomen and pelvis revealed fluid-filled nondilated loops of large and small bowel seen throughout the abdomen favoring gastroenteritis/diarrheal illness. He states that he is feeling better. Has not had any more episodes of vomiting since he got to the ER. Endorses 2-3 loose bowel movements daily as well as mild lower quadrant abdominal discomfort. Stool for PCR and C. difficile was negative Allergies Allergy/AdvReac Type Severity Reaction Status Date / Time lorazepam [From Ativan] AdvReac Intermediate Hallucinati Verified 12/12/23 16:17 ng Home Medications Medication Instructions Recorded Confirmed Type pantoprazole 40 mg tablet,delayed 40 mg PO DAILY 08/24/21 12/12/23 History release ezetimibe 10 mg tablet 10 mg PO DAILY 06/07/23 12/12/23 History dexamethasone 4 mg tablet 4 mg PO BID PRN PER CHEMO 12/01/23 12/12/23 History INSTRUCTIONS folic acid 1 mg tablet 1 mg PO DIRECTED PRN PER CHEMO 12/01/23 12/12/23 History INSTRUCTIONS olanzapine 2.5 mg tablet 2.5 mg PO HS PRN DAY 1 OF CHEMO 12/01/23 12/12/23 History olmesartan 5 mg tablet 10 mg PO DAILY 12/01/23 12/12/23 History ondansetron HCl 8 mg tablet 8 mg PO Q8H PRN Nausea And Vomiting 12/01/23 12/12/23 History prochlorperazine maleate 10 mg 10 mg PO Q6H PRN Nausea 12/01/23 12/12/23 History tablet nystatin 100,000 unit/gram topical 1 applic EXT BID #15 grams 12/11/23 12/12/23 Rx cream Patient History Medical History GERD (gastroesophageal reflux disease) Hyperlipidemia Hypertension CAP (community acquired pneumonia) Lumbar pain with radiation down right leg NHL (non-Hodgkin's lymphoma) (~1994) surgery + chemotherapy. remission currently Surgical History History of colonoscopy History of esophagogastroduodenoscopy (EGD) Hx of surgical procedure tumor removal from chest "open surgery" Family History Other No pertinent family history Social History Smoking Status: Former smoker Tobacco Type: Cigarettes Cigarettes Per Day: 12; Second Hand Exposure: No; Do You Dip or Chew Tobacco: No; Hx Alcohol Use: Yes Alcohol type: beer Hx Substance Use: No Preferred Language: Ukrainian Communication Ability: Effective Surgical Instrument Maker Required: No Beliefs That Will Affect Care: None Current Living Situation: Spouse current occupational status: employed Feels Safe at Home: Yes Safety Concerns: Feels Safe At This Time Assistive Devices: None Results & Data Vital Signs (Past 12 Hours) Vital Signs Pulse Pulse Resp Pulse Ox O2 Del Method O2 Flow Rate 12/13/23 07:38 62 12/13/23 06:07 62 16 96 Room Air 12/12/23 23:02 71 12/12/23 21:40 72 12/12/23 21:30 84 L Nasal Cannula 0
--- NOTE | 2023-12-13 08:44 | Nephrology Consultation ---
Date of Consultation December 13, 2023 Assessment & Plan (1) Acute kidney injury (NILSA) with acute tubular necrosis (ATN): * Multifactorial ATN. Patient is currently in the recovery phase * Volume status and electrolyte balance are acceptable. No acute indication for HD * Avoid exposure to IV contrast, NSAIDS, known nephrotoxic agents * Recommend gentle hydration, monitor I&O's, daily PRP (2) Adenocarcinoma, lung: * Chemoimmunotherapy with cisplatin, pemetrexed, and pembrolizumab provided 11/27/23 (3) Colitis: * 12/04/23 stool + for occult blood * 12/12/23 stool PCR panel negative, C. Difficile gene negative * Recurrent bilateral lower quadrant abdominal pain associated with N/V/D. 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 Consider steroid therapy and consultation w/ Oncology, Gastroenterology History of Present Illness Reason for Consultation: NILSA Attending Physician: Tristan Pabon DO History of Present Illness Mr. Moran is a 68 year old white male who is seen at the request of the [facility] Hospitalist Service for evaluation of NILSA. Information for the HPI is obtained from direct patient interview and review of the EMR. HPI is summarized as follows: Mr. Moran has a known h/o HTN, hyperlipidemia, NHL 1995 s/p chemo and radiation therapy. There is no prior h/o CKD. Baseline Cr has been 0.8-1.0. In 10/13 Mr. Moran was found to have a RUL lung nodule that was increasing in size and concerning for a primary lung malignancy. On 11/27/23 he started chemoimmunotherapy with cisplatin, pemetrexed, and pembrolizumab. Unfortunately this was complicated by abdominal pain, recurrent N/V/D. He required hospitalization 12/01/23-12/12/23. Abdominal CT w/ contrast revealed only evidence of a diarrheal illness. Creatinine peaked at 3.96. Mr. Moran was diagnosed w/ ATN related to recent chemotherapy, dehydration, IV contrast administration in the setting of ARB therapy. Off ARB therapy and with conservative care creatinine improved to 3.7 and Mr. Moran requested discharge to home. Unfortunately his abdominal discomfort has continued. He experienced recurrent emesis and returned to the hospital last evening due to dehydration Allergies Allergy/AdvReac Type Severity Reaction Status Date / Time lorazepam [From Ativan] AdvReac Intermediate Hallucinati Verified 12/12/23 16:17 ng Home Medications Medication Instructions Recorded Confirmed Type pantoprazole 40 mg tablet,delayed 40 mg PO DAILY 08/24/21 12/12/23 History release ezetimibe 10 mg tablet 10 mg PO DAILY 06/07/23 12/12/23 History dexamethasone 4 mg tablet 4 mg PO BID PRN PER CHEMO 12/01/23 12/12/23 History INSTRUCTIONS folic acid 1 mg tablet 1 mg PO DIRECTED PRN PER CHEMO 12/01/23 12/12/23 History INSTRUCTIONS olanzapine 2.5 mg tablet 2.5 mg PO HS PRN DAY 1 OF CHEMO 12/01/23 12/12/23 History olmesartan 5 mg tablet 10 mg PO DAILY 12/01/23 12/12/23 History ondansetron HCl 8 mg tablet 8 mg PO Q8H PRN Nausea And Vomiting 12/01/23 12/12/23 History prochlorperazine maleate 10 mg 10 mg PO Q6H PRN Nausea 12/01/23 12/12/23 History tablet nystatin 100,000 unit/gram topical 1 applic EXT BID #15 grams 12/11/23 12/12/23 Rx cream Patient History Medical History GERD (gastroesophageal reflux disease) Hyperlipidemia Hypertension CAP (community acquired pneumonia) Lumbar pain with radiation down right leg NHL (non-Hodgkin's lymphoma) (~1994) surgery + chemotherapy. 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 Beliefs That Will Affect Care: None Current Living Situation: Spouse current occupational status: employed Feels Safe at Home: Yes Safety Concerns: Feels Safe At This Time Assistive Devices: Denture - Upper Review of Systems Constitutional: no fever Eyes: no problem reported Ear, Nose, Mouth, Throat: no problem reported Respiratory: no cough and no dyspnea Cardiovascular: no chest pain Gastrointestinal: + abdominal pain, + nausea, + vomiting a nd + diarrhea/loose stools Genitourinary: no dysuria or no hematuria Integumentary: no rash Physical Exam Constitutional: not in distress Eyes: PERRL, conjunctivae normal, anicteric sclerae ENMT: external ear and nose normal, oropharynx normal Neck: trachea midline, no thyromegaly Respiratory: normal respiratory effort, lungs clear to auscultation Cardiovascular: RRR, no murmur, no edema Gastrointestinal (Abdomen): Inspection/Auscultation: abdomen normal to inspection Percussion/Palpation: + abdomen tender and abdomen soft; no guarding and no ascites Musculoskeletal: Extremities: extremities normal to inspection Skin: + turgor decreased Neurologic: Speech / Cognition: normal speech and normal cognition Results & Data Vital Signs (Past 12 Hours) Vital Signs Pulse Pulse Resp Pulse Ox O2 Del Method O2 Flow Rate 12/13/23 07:38 62 12/13/23 06:07 62 16 96 Room Air 12/12/23 23:02 71 12/12/23 21:40 72 12/12/23 21:30 84 L Nasal Cannula 0 Laboratory Results Laboratory Results WBC 7.62 K/ul (4.8-10.8) 12/13/23 04:34 RBC 3.71 M/uL (4.70-6.10) L 12/13/23 04:34 Hgb 11.1 g/dl (14.0-18.0) L 12/13/23 04:34 Hct 33.2 % (42.0-52.0) L 12/13/23 04:34 MCV 89.5 fL (80.0-100.0) 12/13/23 04:34 MCH 29.9 pg (25.0-34.0) 12/13/23 04:34 MCHC 33.4 g/dL (32.0-36.0) 12/13/23 04:34 RDW Std Deviation 44.2 fL (36.4-46.3) 12/13/23 04:34 RDW Coeff of Osiel 13.5 % (11.5-14.5) 12/13/23 04:34 Plt Count 206 K/uL (130-400) 12/13/23 04:34 MPV 11.6 fL (9.4-12.4) 12/13/23 04:34 Immature Gran % (Auto) 8.8 % 12/13/23 04:34 Neut % (Auto) 55.5 % 12/13/23 04:34 Lymph % (Auto) 21.5 % 12/13/23 04:34 [place] % (Auto) 13.5 % 12/13/23 04:34 Eos % (Auto) 0.3 % 12/13/23 04:34 Baso % (Auto) 0.4 % 12/13/23 04:34 Neut # (Auto) 4.23 K/uL (1.40-6.50) 12/13/23 04:34 Lymph # (Auto) 1.64 K/uL (1.20-3.40) 12/13/23 04:34 [place] # (Auto) 1.03 K/uL (0.11-0.59) H 12/13/23 04:34 Eos # (Auto) 0.02 K/uL (0.00-0.50) 12/13/23 04:34 Baso # (Auto) 0.03 K/uL (0.00-0.20) 12/13/23 04:34 Immature Gran # (Auto) 0.67 K/uL (0.01-0.20) H 12/13/23 04:34 Toxic Granulation 1+ 12/13/23 04:34 Sodium 138 mmol/L (136-145) 12/13/23 04:34 Potassium 3.4 mmol/L (3.5-5.1) L 12/13/23 04:34 Chloride 107 mmol/L (98-107) 12/13/23 04:34 Carbon Dioxide 27 mmol/L (21-32) 12/13/23 04:34 Anion Gap 4 (3-11) 12/13/23 04:34 BUN 30 mg/dl (6-23) H 12/13/23 04:34 Creatinine 3.06 mg/dl (0.6-1.4) H 12/13/23 04:34 Est Cr Clr Drug Dosing 27.9 ml/min 12/13/23 04:34 Est GFR ( Amer) 23.2 ml/min 12/13/23 04:34 Est GFR (Non-Af Amer) 20.1 ml/min 12/13/23 04:34 BUN/Creatinine Ratio 9.8 (10-20) L 12/13/23 04:34 Glucose 97 mg/dl (70-99(Fasting)) 12/13/23 04:34 Lactate 0.9 mmol/L (0.4-2.0) 12/12/23 15:29 Calcium 7.3 mg/dl (8.6-10.3) L 12/13/23 04:34 Magnesium 1.6 mg/dl (1.7-2.4) L 12/13/23 04:34 Total Bilirubin 0.4 mg/dl (0.2-1.0) 12/13/23 04:34 Direct Bilirubin 0.2 mg/dl (0-0.2) 12/12/23 15:29 AST 14 U/L (13-39) 12/13/23 04:34 ALT 12 U/L (7-52) 12/13/23 04:34 Alkaline Phosphatase 114 U/L (34-104) H 12/13/23 04:34 Troponin I High Sens 23.5 pg/ml (0-20) H 12/12/23 19:59 Total Protein 4.6 gm/dl (6.0-8.3) L D 12/13/23 04:34 Albumin 2.3 gm/dl (3.4-5.0) L 12/13/23 04:34 Globulin 2.3 gm/dl (2.5-4.0) L 12/13/23 04:34 Albumin/Globulin Ratio 1.0 (0.9-2) 12/13/23 04:34 Procalcitonin 0.32 ng/ml (0-0.5) 12/12/23 15:29 Urine Color Yellow 12/12/23 15:15 Urine Appearance Clear (Clear) 12/12/23 15:15 Urine pH 5.5 (4.5-7.5) 12/12/23 15:15 Ur Specific [place] 1.015 (1.000-1.030) 12/12/23 15:15 Urine Protein Trace (Negative) H 12/12/23 15:15 Urine Glucose (UA) Negative (Negative) 12/12/23 15:15 Urine Ketones Negative (Negative) 12/12/23 15:15 Urine Blood Negative (Negative) 12/12/23 15:15 Urine Nitrite Negative (Negative) 12/12/23 15:15 Urine Bilirubin Negative (Negative) 12/12/23 15:15 Urine Urobilinogen Negative (Negative) 12/12/23 15:15 Ur Leukocyte Esterase Negative (Negative) 12/12/23 15:15 Urine WBC (Auto) 0-5 /hpf (0-5) 12/12/23 15:15 Urine RBC (Auto) 0-2 /hpf (0-2) 12/12/23 15:15 U Hyaline Cast (Auto) 0-2 /lpf (0-2) 12/12/23 15:15 U Epithel Cells (Auto) 0-2 /hpf (0-2) 12/12/23 15:15 Urine Bacteria (Auto) None Seen (None Seen) 12/12/23 15:15 Stl C. cayetanensis PCR Not Detected (NotDetected) 12/12/23 15:15 Stool Rotavirus A PCR Not Detected (NotDetected) 12/12/23 15:15 Stl Adenov F 40/41 PCR Not Detected (NotDetected) 12/12/23 15:15 Stool Astrovirus (PCR) Not Detected (NotDetected) 12/12/23 15:15 Stool Campylobacter PCR Not Detected (NotDetected) 12/12/23 15:15 Stl C. diff Tox B Gene Negative Cdiff Gene (Neg) 12/12/23 15:15 Stool Cryptosporidium PCR Not Detected (NotDetected) 12/12/23 15:15 Stl E.coli Shiga Tox PCR Not Detected (NotDetected) 12/12/23 15:15 Stl Enterotoxigenic E PCR Not Detected (NotDetected) 12/12/23 15:15 Stool EPEC (PCR) Not Detected (NotDetected) 12/12/23 15:15 Stool EAEC (PCR) Not Detected (NotDetected) 12/12/23 15:15 Stl E. histolytica PCR Not Detected (NotDetected) 12/12/23 15:15 Stool Giardia Lamblia PCR Not Detected (NotDetected) 12/12/23 15:15 Stool Salmonella PCR Not Detected (NotDetected) 12/12/23 15:15 Stool Sapovirus (PCR) Not Detected (NotDetected) 12/12/23 15:15 Stl P. shigelloides PCR Not Detected (NotDetected) 12/12/23 15:15 Stl Shigella/EIEC PCR Not Detected (NotDetected) 12/12/23 15:15 St Y.enterocolitica PCR Not Detected (NotDetected) 12/12/23 15:15 Stool Vibrio (PCR) Not Detected (NotDetected) 12/12/23 15:15 Stl Vibrio cholerae PCR Not Detected (NotDetected) 12/12/23 15:15 Stl Norovirus GI/GII PCR Not Detected (NotDetected) 12/12/23 15:15 Impressions Abdomen/Pelvis CT 12/12/23 14:[address] WITHOUT CONTRAST CT DOSE: 1426.88 mGy.cm HISTORY: Nausea. Vomiting. Diarrhea. Right lower quadrant abdominal pain. TECHNIQUE: Multiaxial CT images of the abdomen and pelvis were performed without contrast. A dose lowering technique was utilized adhering to the principles of ALARA. COMPARISON STUDY: Abdomen and pelvis CT 12/01/2023. FINDINGS: Left basilar linear densities favor subsegmental atelectasis are scarring. The right lung base is clear. No acute fractures. Poststernotomy changes. Hepatic steatosis. The unenhanced spleen, adrenal glands, pancreas, and gallbladder are unremarkable. No renal or ureteral stones. No hydronephrosis. Mild perinephric edema and mild lumbar subcutaneous edema is noted. There is mild diffuse body wall edema. Mildly ectatic abdominal aorta. No evidence for an abdominal aortic aneurysm. No retroperitoneal or pelvic lymphadenopathy. No pelvic free fluid. The bladder is unremarkable. Suboptimal evaluation for bowel pathology due to the lack of intravenous and oral contrast. However, there is no definite bowel wall thickening or obstruction. Normal appendix. Fluid-filled nondilated loops of large and small bowel seen throughout the abdomen. This favors a gastroenteritis/diarrheal illness. IMPRESSION: 1. No bowel wall thickening or obstruction. 2. Normal appendix. 3. Fluid-filled nondilated loops of large and small bowel seen throughout the abdomen. This favors a gastroenteritis/diarrheal illness. 4. Hepatic steatosis. 5. Mild body wall edema. ACT 112: Negative or not required by law. Electronically signed by: Uriel Calle M.D. 12/12/2023 3:27 PM Chest X-Ray 12/12/23 14:20 XR chest 1V portable HISTORY: Sepsis COMPARISON: Chest 12/01/2023. FINDINGS: No pneumothorax. No pleural effusions. There are poststernotomy changes. The cardiac silhouette remains top normal in size. Left basilar linear densities favor subsegmental atelectasis are scarring. Otherwise, no focal lung consolidations to suggest a pneumonia. No evidence for pulmonary edema. No acute fractures. There are low lung volumes. IMPRESSION: No acute process. ACT 112: Negative or not required by law. Electronically signed by: Uriel Calle M.D. 12/12/2023 3:13 PM PG Care Time/CCT Total # of Minutes Spent Total Time Spent with Patient: Total time spent is greater than 50% in coordination of care (as documented) at patient's floor/unit and/or counseling patient: Coding Level of Care Code 29121 IN/OBS CONSULT LVL 5,80M Diagnoses Acute kidney injury (NILSA) with acute tubular necrosis (ATN) N17.0 Adenocarcinoma, lung C34.90 Colitis K52.9
[2023-12-13] MEDS: FOLIC ACID 1 MG TAB PO SCH (08:59)
[2023-12-13] MEDS: POTASSIUM CHLORIDE CRTAB 20 MEQ TABCR PO SCH (09:00)
[2023-12-13] MEDS: FAMOTIDINE 20MG IV PUSH 20 MG/5 ML SYR IV SCH (09:04)
[2023-12-13] MEDS: amLODIPine BESYLATE 5 MG TAB PO SCH (09:04)
--- NOTE | 2023-12-13 10:53 | Hospitalist Progress Note ---
Date of Service December 13, 2023 Assessment & Plan (1) GERD (gastroesophageal reflux disease): (2) Hyperlipidemia: (3) Hypertension: (4) Neutropenia: (5) Abnormal LFTs: (6) Sepsis: (7) NHL (non-Hodgkin's lymphoma): (8) NILSA (acute kidney injury): Plan Mr. Moran is a 68 y/o male with PMHx of recently diagnosed lung cancer (first session of chemotherapy on 11/27/23) who was admitted due to N/V/D and associated abdominal pain that began soon after his first session of chemotherapy. Patient had a recent discharge after being managed for this concern, at which point it was discussed that both his GI symptoms and kidney function were impacted by his recent chemotherapy, and like a cut on someone's skin, this would take time to heal, and so symptom control until it does heal would be the route to take. Currently has good appetite and so will advance diet as tolerated, starting with clear liquid. By his next meal, patient was asking for mashed potatoes and macaroni and cheese, which he also tolerated. Nausea seems to have improved and still having some loose bm. Nausea/Vomiting/ Diarrhea (Improving) - Patient with several days of significant N/V/D that seems to be improving but still understandably bothersome - Stool studies negative. C.diff negative. - Blood cultures negative (24 hours) - VSS; AF - Will change IV meds to PO; Pepcid PO bid, Protonix PO bid, Reglan PO Q6h prn, Zofran PO Q4h prn, Simethicone PO Q6h prn, Carafate 1 g PO bid prn, Bentyl 10mg achs - Pain control changed to Acetaminophen 1000mg PO Q8H and Oxycodone 5mg Q4h prn for breakthrough pain - If diarrhea persists, may consider Immodium as patient has not had fevers - Monitor am labs NILSA // ATN - Creatinine improved today 3.06 compared to 3.76 on the day of his recent discharge and 3.21 at the time of his admission last night - Nephro consulted: Multifactorial ATN that seems to be in recovery phase - Encourage increased PO intake of fluids - Monitor am labs Lung Cancer - Has outpatient f/u with oncologist (Dr. Gonzáles) - Heme/Onc consulted: May need Aloxi again if symptoms persist. Compazine as needed. Diarrhea also likely due to chemotherapy; will order calprotectin in stool to assess for possible immunotherapy although not very likely HTN - Ordered Amlodipine 5mg daily instead of Olmesartan due to ATN HLD - Hold Zetia GERD - Continue PPI as above DVT ppx: Heparin 5000 units SubQ bid Admission and Anticipated Discharge Date Admission Date: December 12, 2023 Supervising Physician Co-Signing Physician Notes I personally examined the patient and verified all bae points of history and exam, discussed case, and agree with decision making with Dr David Feeling a good bit better. Still a bit of an upset stomach but was able to eat. arrivesupdated to the best my ability as well. Vitals noted, in general he is awake and alert pleasant no distress. HEENT normocephalic atraumatic mucous membranes moist. Breathing unlabored no accessory muscle use good effort. Skin shows no rashes no pallor or icterus. Neuro without focal deficits. Nausea and vomitingimproving. Hard to tell if it is late effects of cisplatin versus viral enteritis given that multiple are prevalent in the communitymanaged with symptomatic and supportive care, and given possible lingering effects of chemo, will translate supportive care to a management plan that works outside hospital as well. ATNappears to be improving. DVT proph - heparin SQ Subjective Mr. Moran is a 68 y/o male with PMHx of HTN, HLD, GERD, and recently diagnosed lung cancer who came to the hospital after recent discharge on 12/11/23 due to N/V/D and abdominal pain. He was evaluated at bedside today and found to be AAOx4, afebrile, and in NAD. He states that he was feeling well on the day he was discharged, but the day after (12/12/23) he began to experience generalized abdominal pain once more and N/V. Still having loose bm but appear slightly more formed compared to previous admission. Refers having nausea and vomited once earlier in the morning. Endorses he is hungry, but when told we could start with a clear liquid diet he states he would like to eat something more solid. Denies chest pain, SOB, fevers, chills, weakness, fatigue, lightheadedness, or any other symptom. Review of Systems Review of Systems: As per HPI. Physical Exam Physical Exam: General: AAOx3, afebrile, uncomfortable, NAD HEENT: AT, NC, [place], EOM intact Throat: normal to visual inspection CV: RRR, no r/m/g Pulm: CTA bilaterally, normal respiratory effort GI: soft, mildly distended, mildly tender in all quadrants but more so RUQ Extremity: no swelling in bilateral LE, no calf tenderness Results & Data Results & Data Vital Signs (Past 12 Hours) Vital Signs Temp Pulse Pulse Resp BP Pulse Ox O2 Del Method 12/13/23 09:50 37.0 C 62 22 152/69 H 97 Room Air 12/13/23 07:38 62 12/13/23 06:07 62 16 96 Room Air 12/12/23 23:02 71 Resident Activity Tracking Resident Involvement: Resident Care Provided Care Provided: Adult Hospital Medicine
[2023-12-13] MEDS: PANTOprazole 40 MG in SYRINGE 0 ML IV SCH (12:05)
[2023-12-13] MEDS ORDERED: HYDROmorphone INJ 0.5 MG/0.5 ML SYR IV PRN (15:55)
[2023-12-13] MEDS: ACETAMINOPHEN 500 MG TAB PO SCH (17:07)
--- NOTE | 2023-12-13 19:32 | Billing Data ---
Date of Service December 13, 2023 Coding Level of Care Code 41700 SUB INP/OBS CARE
[2023-12-13] MEDS: FAMOTIDINE 20 MG TAB PO SCH (21:00)
[2023-12-13] MEDS: PANTOprazole 40 MG TAB PO SCH (21:01)
[2023-12-13] MEDS: MELATONIN 3 MG TAB PO PRN (21:07)
[2023-12-14 06:21] LABS: Hematocrit (blood only) 32.4 % (42.0-52.0); Hemoglobin 10.9 g/dl (14.0-18.0); Mean Corpuscular Hemoglobin 29.9 pg (25.0-34.0); Mean Corpuscular Hgb Conc 33.6 g/dL (32.0-36.0); Mean Platelet Volume 11.5 fL (9.4-12.4); Platelet Count 271 K/uL (130-400); RDW Coefficient of Variation 13.2 % (11.5-14.5); RDW Standard Deviation 43.5 fL (36.4-46.3); Red Blood Count 3.64 M/uL (4.70-6.10); White Blood Count 7.84 K/ul (4.8-10.8)
[2023-12-14 06:22] LABS: Albumin Globulin Ratio 0.9 (0.9-2); Albumin Level 2.3 gm/dl (3.4-5.0); BUN Creatinine Ratio 9.9 (10-20); Bilirubin,Total 0.4 mg/dl (0.2-1.0); Calcium 7.1 mg/dl (8.6-10.3); Creatinine Clr Calc Pharmacy 30.2 ml/min; Est GFR (African American) 25.5 ml/min; Globulin 2.5 gm/dl (2.5-4.0); Magnesium 1.4 mg/dl (1.7-2.4); Potassium 3.5 mmol/L (3.5-5.1); Total Protein 4.8 gm/dl (6.0-8.3)
[2023-12-14 07:23] LABS: Basophils # (auto) 0.05 K/uL (0.00-0.20); Basophils % (auto) 0.6 %; Eosinophils # (auto) 0.02 K/uL (0.00-0.50); Eosinophils % (auto) 0.3 %; Immature Granulocytes % (auto) 5.1 %; Lymphocytes # (auto) 1.75 K/uL (1.20-3.40); Lymphocytes % (auto) 22.3 %; Monocytes # (auto) 1.17 K/uL (0.11-0.59); Monocytes % (auto) 14.9 %; Neutrophils # (auto) 4.45 K/uL (1.40-6.50); Neutrophils % (auto) 56.8 %
[2023-12-14] MEDS: MAGNESIUM SULFATE / D5W 1 GM/100 ML BAG IV SCH (09:11)
--- NOTE | 2023-12-14 09:59 | Nephrology Progress Note ---
Date of Service December 14, 2023 Assessment & Plan (1) Acute kidney injury (NILSA) with acute tubular necrosis (ATN): Plan: * Multifactorial ATN. Patient is no in the recovery phase * Volume status and electrolyte balance are acceptable. Patient is nonoliguric * Avoid exposure to IV contrast, NSAIDS, known nephrotoxic agents * Encourage oral hydration, monitor I&O's, daily PRP * No further Nephrology evaluation needed at this time. Will sign off. Please call if further assistance is needed (2) Adenocarcinoma, lung: Plan: * Chemoimmunotherapy with cisplatin, pemetrexed, and pembrolizumab provided 11/27/23 (3) Colitis: Plan: * 12/04/23 stool + for occult blood * 12/12/23 stool PCR panel negative, C. Difficile gene negative * Recurrent N/V/D likely related to cisplatin therapy Admission and Anticipated Discharge Date Admission Date: December 12, 2023 Subjective Mr. Moran was evaluated in his hospital room this morning. He reports that his abdominal discomfort, nausea and diarrhea have improved. He was able to keep down breakfast and is trying to remain well hydrated. He voiced no new medical concerns. Review of Systems Constitutional: no fever Eyes: no problem reported Ear, Nose, Mouth, Throat: no problem reported Respiratory: no cough and no dyspnea Cardiovascular: no chest pain Gastrointestinal: + abdominal pain, + nausea, + vomiting a nd + diarrhea/loose stools Genitourinary: no dysuria or no hematuria Integumentary: no rash Physical Exam Constitutional: not in distress Eyes: PERRL, conjunctivae normal, anicteric sclerae ENMT: external ear and nose normal, oropharynx normal Neck: trachea midline, no thyromegaly Respiratory: normal respiratory effort, lungs clear to auscultation Cardiovascular: RRR, no murmur, no edema Gastrointestinal (Abdomen): Inspection/Auscultation: abdomen normal to inspection Percussion/Palpation: + abdomen tender and abdomen soft; no guarding and no ascites Musculoskeletal: Extremities: extremities normal to inspection Skin: + turgor decreased Neurologic: Speech / Cognition: normal speech and normal cognition Results & Data Vital Signs (Past 12 Hours) Vital Signs Temp Pulse Pulse Resp BP Pulse Ox O2 Del Method 12/14/23 07:57 Room Air 12/14/23 07:42 36.5 C 67 17 159/75 H 97 Room Air 12/14/23 03:00 36.9 C 67 16 144/76 H 95 Room Air 12/14/23 00:20 75 12/13/23 23:00 37.1 C 73 16 144/73 H 94 Room Air Laboratory Results Laboratory Results - last 24 hr 12/13/23 12/14/23 20:40 05:39 WBC 7.84 RBC 3.64 L Hgb 10.9 L Hct 32.4 L MCV 89.0 MCH 29.9 MCHC 33.6 RDW Std Deviation 43.5 RDW Coeff of Osiel 13.2 Plt Count 271 MPV 11.5 Immature Gran % (Auto) 5.1 Neut % (Auto) 56.8 Lymph % (Auto) 22.3 [place] % (Auto) 14.9 Eos % (Auto) 0.3 Baso % (Auto) 0.6 Neut # (Auto) 4.45 Lymph # (Auto) 1.75 [place] # (Auto) 1.17 H Eos # (Auto) 0.02 Baso # (Auto) 0.05 Immature Gran # (Auto) 0.40 H Sodium 137 Potassium 3.5 Chloride 106 Carbon Dioxide 25 Anion Gap 6 BUN 28 H Creatinine 2.83 H Est Cr Clr Drug Dosing 30.2 Est GFR ( Amer) 25.5 Est GFR (Non-Af Amer) 22.0 BUN/Creatinine Ratio 9.9 L Glucose 107 H Calcium 7.1 L Magnesium 1.4 L Total Bilirubin 0.4 AST 13 ALT 12 Alkaline Phosphatase 116 H Total Protein 4.8 L Albumin 2.3 L Globulin 2.5 Albumin/Globulin Ratio 0.9 Stool Calprotectin Pending PG Care Time/CCT Total # of Minutes Spent Total Time Spent with Patient: Total time spent is greater than 50% in coordination of care (as documented) at patient's floor/unit and/or counseling patient: Coding Level of Care Code 72329 SUB INP/OBS CARE 3/50MIN Diagnoses Acute kidney injury (NILSA) with acute tubular necrosis (ATN) N17.0 Adenocarcinoma, lung C34.90 Colitis K52.9
--- NOTE | 2023-12-14 11:47 | Discharge Summary ---
Date of Service December 14, 2023 Admission HPI Per Admitting Provider Prashanth is a 68-year-old male with PMH of recently diagnosed stage IIb right upper lobe lung adenocarcinoma, neutropenia, HTN, HLD, and GERD. He returned shortly after discharge on 12/11 for N/V/D and lower abdominal pain. Remote history: Recent [facility] admission from 11/30 - 12/10 for N/V/D in setting of new lung cancer, neutropenic fever, NILSA/ATN, and pancytopenia. His first session of chemotherapy was on 11/27/2023, and he was subsequently admitted thereafter (please see hospital progress notes for full history). Patient reports he felt well upon discharge yesterday, but then woke up around noon on 12/11 and had 45 episodes of bilious vomiting around 1 PM. No blood in his vomit. He did not eat very much this morning, as he was not feeling hungry. He also endorses ongoing diarrhea x 12 days, as well as low transverse bilateral abdominal pain rated 5/10 at present, but 10 out of 10 at worst. He reports the pain comes and goes, and Tylenol does not help at home. No exacerbating or alleviating factors. No radiation to the flanks, back, or down the legs. Patient did not take any of his regular morning medications today, and has only had Tylenol 500 mg p.o. he reports that the nausea and pain medications were working here prior to leaving. Last BM was this morning on 12/11. No prior abdominal surgeries. Patient is a former tobacco cigarette smoker; quit 1 year ago. No recent alcohol use. While he does not have a POA, he reports that he would want his to be POA in the event he cannot make medical decisions. 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 Patient's vitals are stable at admission. ED course: NSS 1000 mL IV Zofran 4 mg IV Dilaudid 0.25 mg IV ROS: Patient endorses chills, nausea, vomiting, LLQ abdominal pain, bilious/yellow vomiting this morning, diarrhea, and neuropathy intermittently in the fingers (which patient attributes to the chemo). Patient denies fever, night-sweats, new body aches, dizziness, lightheadedness, headaches, changes in vision/hearing, chest pain, chest palpitations, pleuritic CP, SOB, burning with urination, and blood in urine/stool. Admission Exam Per Admitting Provider General: Moderate physical distress secondary to stomach pain; pleasant affect non-toxic appearing; cooperative HEENT: normocephalic, atraumatic; no scleral icterus; PERRLA; moist mucus membrane; vision and hearing grossly intact Neck: supple; no lymphadenopathy; trachea midline Skin: warm, dry without signs of tenting; no cyanosis; no rashes, bruising, lesions, or erythema noted CV: chest wall NTP; RRR; S1/S2 normal; no murmurs/rubs/gallops; pulses intact and symmetric at radial, DP, and PT Lungs: no acute respiratory distress; symmetrical chest wall expansion; clear breath sounds across all lung cox w/o adventitious sounds; no wheezing ABD: Soft; firm stomach with significant distention; LLQ, RLQ, and suprapubic region are TTP; BS present MSK: no tics or fasciculations; +2 pitting edema in the LEs B/L, nonerythematous Neuro: A&Ox3; normal mood and affect; fluent speech; no focal deficits; sensation grossly intact in the LEs b/l Principal Diagnosis Chemotherapy-induced plus viral N/V/D and abdominal pain Discharge Exam General: AAOx3, afebrile, uncomfortable, NAD HEENT: AT, NC, DELONTE, EOM intact Throat: normal to visual inspection CV: RRR, no r/m/g Pulm: CTA bilaterally, normal respiratory effort GI: soft, mildly distended and mildly tender in bilateral lower quadrants but improved to prior exam Extremity: no swelling in bilateral LE, no calf tenderness Discharge Data Allergies Allergy/AdvReac Type Severity Reaction Status Date / Time lorazepam [From Ativan] AdvReac Intermediate Hallucinati Verified 12/12/23 16:17 ng Consultations 12/12/23 15:56 ED Decision to Admit Stat 12/12/23 19:30 Consult Nephrology Routine Consult Oncology Routine Ordered Studies 12/12/23 14:20 CT abd pelvis wo con Stat Hospital Course (1) GERD (gastroesophageal reflux disease): (2) Hyperlipidemia: (3) Hypertension: (4) Neutropenia: (5) Abnormal LFTs: (6) Sepsis: (7) NHL (non-Hodgkin's lymphoma): (8) NILSA (acute kidney injury): Plan Mr. Ripka is a 68 y/o male with PMHx of recently diagnosed lung cancer (first session of chemotherapy on 11/27/23) who was admitted due to N/V/D and associated abdominal pain that began soon after his first session of chemotherapy. Patient refers improvement with regards to his N/V/D and abdominal pain with current PO medications. Creatinine improved with PO hydration from 3.06 yesterday to 2.83 this morning. Will discharge today. Nausea/Vomiting/ Diarrhea (Improving) - Patient with several days of significant N/V/D that seems to be improving but still understandably bothersome - Stool studies negative. C.diff negative. - Blood cultures negative (24 hours) - VSS; AF - Will continue Pepcid PO daily, Protonix PO bid, Zofran PO Q4h prn, Simethicone PO Q6h prn, Carafate 1 g PO bid prn after discharge - Pain control changed to Acetaminophen 1000mg PO Q8H and Oxycodone 5mg Q8h prn for breakthrough pain - Will discharge today due to symptom improvement on PO regimen NILSA // ATN (Improving) - Creatinine improved today to 2.83 from 3.06 yesterday with PO hydration - Nephro consulted: Multifactorial ATN that seems to be in recovery phase - Discussed that this would take some time to heal, patient in understanding - Encouraged outpatient f/u with nephrology after discharge Lung Cancer (Chronic, stable) - Has outpatient f/u with oncologist (Dr. Gonzáles) HTN (Chronic, stable) - Continue Amlodipine 5mg daily instead of Olmesartan due to ATN - Defer to PCP and/or nephrology as to re-starting Olmesartan HLD (Chronic, stable) - Continue Zetia GERD (Chronic, stable) - Continue PPI as above Will discharge today. Total Time Total Time Spent Total Time Spent (In Minutes): <30 Discharge Plan Discharge Items Patient Disposition: Home - Self-Care Reason For Visit: N/V/D, ABDOMINAL PAIN Discharge Diagnosis: chemotherapy-induced + viral N/V/D and abdominal pain Condition on Discharge: Good Activity: Per Instructions section Non-emergency contact: Primary Care Provider, Scouring Machine Tender and Oncologist Call non-emergency contact if: your symptoms worsen and your temperature is above 101 Follow-up/Referrals: Maggie Tipton DO [Primary Care Provider] - 12/17/23 8:05 am Diet: Regular Addtl Attending Provider Instructions: You were admitted for management of nausea, vomiting, and diarrhea that is a ssociated to abdominal pain. As we discussed, this may have come as a consequence of the effects of a viral illness combined with chemotherapy-induced effects over your colon. Similar to the situation with your kidneys, your colon may have gotten "hurt" from the chemotherapy and is currently healing itself, but in the meantime, you may continue to experience symptoms such as nausea, vomiting, diarrhea, and some occasional abdominal pain until it does heal. The best comparison I can give is like when you get a cut on your skin, it may take a few days to heal. This is a similar principle as to what you are currently experiencing with regards to your colon and your kidneys. Until then, it should be managed with symptom control and following up with your PCP, cheese sprayer, and oncologist. We will be discharging you with the following new medications to help control your nausea, vomiting, diarrhea, and abdominal pain: Protonix 40mg by mouth two times a day Pepcid 20mg by mouth every day Zofran 4mg by mouth every 6 hours as needed for nausea Carafate 1g by mouth two times a day as needed for nausea Simethicone 80 mg by mouth every 6 hours as needed for gas accumulation Tylenol 1000mg by mouth every 8 hours for control of your pain Oxycodode 5mg by mouth every 8 hours as needed for severe pain. Please be aware that this medication may make you sleepy/drowsy, so avoid driving if you do take this medication for control of severe pain. We've also changed your blood pressure medication to Amlodipine 5mg daily. We held your Olmesartan due to your current kidney injury. Please continue taking the Amlodipine for now, and if your PCP or cheese sprayer recommend restarting the Olmesartan, then you could switch back to that. A discharge summary will be sent to your primary care physician to ensure continuity of care. Please bring this discharge summary with you to your next office appointment so that your provider can review it at that time. Follow-up appointments: Make a follow-up appointment with your PCP within the next week. It is very important that you follow up with them shortly after discharge from the hospital. Please follow up with your cheese sprayer and your oncologist after discharge. Keep all your follow-up appointments as already scheduled. If you cannot make an appointment, notify your provider. Medications: Your medication list has been reviewed and reconciled upon discharge to ensure accuracy and continuity of care. An updated list of all your medications is included with your hospital discharge paperwork. Please review this list closely, and make note of any changes. If you have any issues filling these prescriptions, please call [phone] and ask to leave a message for Dr. David. Take your medications as instructed; do not skip a dose of your medicines. Make sure all of your doctors know every medicine you are taking (including [id number] medicines, vitamins, and supplements). Call your primary care provider before taking any new medicines (including over- the-counter medicines, vitamins, and supplements), because some of these may interact with your current medications, or may make your symptoms worse. Tell your primary care provider if you cannot afford your medications. CONTACT YOUR PRIMARY CARE PROVIDER if you experience any of the following: Worsening of symptoms Fever, chills, or fatigue Difficulty following your treatment plan, or difficulty taking medications CALL [phone] OR GO TO THE EMERGENCY DEPARTMENT if you experience any of the following: Sudden, severe abdominal pain or nausea/vomiting Severe chest pain, or chest pain that radiates (moves) to your jaw or arm Sudden, severe shortness of breath or difficulty breathing Thank you for allowing us to participate in your care. Pending Studies at Discharge: No Stand-Alone Forms: My [facility] [employer], Smoking Cessation Medications and DC Order Prescriptions: New oxycodone 5 mg tablet 5 mg PO TID PRN (Reason: pain, severe) Qty: 20 0RF amlodipine [Norvasc] 5 mg Tablet 5 mg PO QAM Qty: 30 0RF acetaminophen [Tylenol Extra Strength] 500 mg Tablet 1,000 mg PO Q8H Qty: 60 0RF famotidine 20 mg Tablet 20 mg PO DAILY Qty: 30 0RF pantoprazole 40 mg Tablet,Delayed Release (Dr/Ec) 40 mg PO BID Qty: 60 0RF ondansetron 4 mg Tablet,Disintegrating 4 mg PO Q6H PRN (Reason: nausea and vomiting) Qty: 30 0RF simethicone [Gas Relief (simethicone)] 80 mg Tablet,Chewable 80 mg PO Q6H PRN (Reason: abdominal distention) Qty: 60 0RF sucralfate 100 mg/mL Suspension 1 g PO BID PRN (Reason: nausea and vomiting) Qty: 400 0RF Continued ezetimibe 10 mg tablet 10 mg PO DAILY folic acid 1 mg tablet 1 mg PO DIRECTED PRN (Reason: PER CHEMO INSTRUCTIONS) Rx Instructions: START ONE WEEK BEFORE INITIAL PEMETREXED DOSE AND CONTINUE THREE WEEKS PAST FINAL DOSE ( INITIAL PEMETREXED DOSE WAS 11/27/23). prochlorperazine maleate 10 mg tablet 10 mg PO Q6H PRN (Reason: Nausea) dexamethasone 4 mg tablet 4 mg PO BID PRN (Reason: PER CHEMO INSTRUCTIONS) Rx Instructions: 12/01/23 START THE DAY BEFORE PEMETREXED AND CONTINUE FOR THREE DAYS AFTER CHEMO. olanzapine 2.5 mg tablet 2.5 mg PO HS PRN (Reason: DAY 1 OF CHEMO) Rx Instructions: 12/01/23 TAKE FOR FOUR DAYS STARTING ON DAY 1 OF CHEMO. NEXT ROUND OF CHEMO DUE 12/18/23. nystatin 100,000 unit/gram Cream 1 applic EXT BID Qty: 15 0RF Held olmesartan 5 mg tablet 10 mg PO DAILY Hold Instructions: Resume on 11/23/23. BP adequate without medications. Will hold given ATN. Defer re-start of medication to PCP and/or cheese sprayer. Discontinued pantoprazole 40 mg Tablet,Delayed Release (Dr/Ec) 40 mg PO DAILY ondansetron HCl 8 mg tablet 8 mg PO Q8H PRN (Reason: Nausea And Vomiting) Discharge Orders: Discharge Order (Routine); Ordered 12/14/23 Ordered By: Felipa David Admission Data Admit Date/Time: 12/12/23 16:44 Attending Provider: Tristan Pabon Admit Provider: Jim Gonzalez Primary Care Provider: Maggie Tipton Other Providers: Jim Gonzalez; Damion Emery; Carleen Gonzáles Other Interventions: Discharge Summary Assessment (RN) Last Done: 12/14/23 12:22 Supervising Physician Co-Signing Physician Notes I personally examined the patient and verified all bae points of history and exam, discussed case, and agree with decision making with Dr David Feeling a good bit better. feels up to going home. Vitals noted, in general he is awake and alert pleasant no distress. HEENT normocephalic atraumatic mucous membranes moist. Breathing unlabored no accessory muscle use good effort. Skin shows no rashes no pallor or icterus. Neuro without focal deficits. Nausea and vomitingimproving. Hard to tell if it is late effects of cisplatin versus viral enteritis given that multiple are prevalent in the communitymanaged with symptomatic and supportive care, and given possible lingering effects of chemo, will translate supportive care to a management plan that works outside hospital as well. safe/stable for home in this respect ATNappears to be improving. ongoing outpt f/u DVT proph - heparin SQ Resident Activity Tracking Resident Involvement: Resident Care Provided Care Provided: Adult Hospital Medicine
[2023-12-14] MEDS: ONDANSETRON 4 MG OD TAB PO PRN (14:09)
--- NOTE | 2023-12-14 16:47 | Billing Data ---
Date of Service December 14, 2023 Coding Level of Care Code 64984 IN/OBS DISCH 30 MIN/LESS
== END 2023-12-14 14:30 | disposition home or self-care (01) | DRG 683 ==
LOC: ED 13:40 → EDINP 16:44 → SUATTDRO 16:44 → 2S 12-13 14:13
DX: I10 Essential (primary) hypertension; Z66 Do not resuscitate; Y92.019 Unspecified place in single-family (private) house as the place of occurrence of the external cause; K21.9 Gastro-esophageal reflux disease without esophagitis; C34.11 Malignant neoplasm of upper lobe, right bronchus or lung; T45.1X5A Adverse effect of antineoplastic and immunosuppressive drugs, initial encounter; A08.4 Viral intestinal infection, unspecified; E83.42 Hypomagnesemia; D70.9 Neutropenia, unspecified; E87.6 Hypokalemia; E83.51 Hypocalcemia; E86.0 Dehydration; N17.0 Acute kidney failure with tubular necrosis; E78.5 Hyperlipidemia, unspecified; Z85.72 Personal history of non-Hodgkin lymphomas; Z87.891 Personal history of nicotine dependence; R11.2 Nausea with vomiting, unspecified; R79.89 Other specified abnormal findings of blood chemistry